=== PATIENT | male | born 1950 | race Caucasian/White ===

== ENCOUNTER 2018-02-18 13:14 | Inpatient (IN) ==
[2018-02-18 17:11] LABS: Basophils % 0.2 %; Eosinophils # 0.6 K/mcL (0.0-0.6); Eosinophils % 4.7 %; Hematocrit 31.5 % (37.5-50.1); Hemoglobin 10.1 g/dL (12.9-16.9); Immature Granulocytes % 0.5 % (0-4); Lymphocytes # 2.6 K/mcL (0.6-4.6); Lymphocytes % 21.3 %; Mean Corpuscular HGB Conc 32.1 g/dL (31.6-35.5); Mean Corpuscular Volume 71.8 fL (83.0-100.0); Mean Platelet Volume 10.4 fL (9.4-12.4); Monocytes # 0.7 K/mcL (0.0-1.3); Monocytes % 5.3 %; Neutrophils # 8.4 K/mcL (1.6-8.9); Nucleated Red Blood Cells 0.2 /100 WBC (0); Platelet Count 374 K/mcL (140-400); Red Blood Count 4.39 M/mcL (4.19-5.50); Red Cell Distribution Width 21.4 % (11.5-14.5)
[2018-02-18 17:26] LABS: Alanine Aminotransferase 14 Units/L (7-52); Albumin 3.7 g/dL (3.5-5.7); Albumin/Globulin Ratio 1.1 (1.1-2.2); Alkaline Phosphatase 77 Units/L (34-104); Aspartate Amino Transferase 19 Units/L (13-39); BUN/Creatinine Ratio 17 (6-26); Bilirubin,Total 0.8 mg/dL (0.3-1.0); Blood Urea Nitrogen 17 mg/dL (8-23); Calcium 8.9 mg/dL (8.6-10.3); Carbon Dioxide 23 mEq/L (23-29); Chloride 89 mEq/L (98-107); Globulin 3.3 g/dL (2.4-3.5); Glucose 84 mg/dL (70-105); Osmolality,Calculated 257 (280-300); Potassium 3.6 mEq/L (3.5-5.1); Sodium 123 mEq/L (136-145); eGFR For African Americans > 60 (> 60); eGFR For Non-African Americans > 60 (> 60)
[2018-02-18] MEDS ORDERED: Acetaminophen 325 MG TABLET PO PRN (17:26)
[2018-02-18] MEDS ORDERED: *HR* HYDROcodone/Acet 5/325 mg TABLET PO PRN (17:26)
[2018-02-18] MEDS ORDERED: Naloxone 0.4 MG/ML INJ IVP PRN (17:26)
[2018-02-18] MEDS ORDERED: *HR* OxyCODONE Immed Rel 5 MG TABLET PO PRN (17:26)
[2018-02-18] MEDS ORDERED: *HR* Heparin 5,000 UNIT/ML VIAL IVP ONE (17:51)
[2018-02-18] MEDS ORDERED: *HR* Heparin 5,000 UNIT/ML VIAL IVP PRN ×2 (17:51)
[2018-02-18] MEDS ORDERED: Heparin 25,000 UNIT/500 ML D5W 25,000 UNIT/500 ML BAG IVC SCH (18:00)
[2018-02-18] MEDS ORDERED: CLOBETASOL PROPIONATE 15 GM TUBE TP PRN (18:06)
[2018-02-18] MEDS ORDERED: *HR* LORazepam 2 MG/ML VIAL IVP PRN ×3 (18:12)
[2018-02-18 18:17] LABS: Prothrombin Time 11.4 Seconds (9.4-12.1)
[2018-02-18 18:20] LABS: Activated Partial Thrombo Time 28.4 Seconds (26.0-36.0)
[2018-02-18] MEDS: Vitamin B Complex/Vit C/Vit E 1 EACH TABLET PO SCH (18:36)
[2018-02-18] MEDS: Thiamine (B-1) 100 MG TABLET PO SCH (18:36)
[2018-02-18] MEDS: Folic Acid 1 MG TABLET PO SCH (18:36)
--- NOTE | 2018-02-18 18:40 | Internal Med History&Physical ---
Date of Encounter: 02/18/18 Time of Encounter: 17:00 Internal Medicine - H&P: HPI Chief complaint: Bilateral leg weakness Admitted From: Hospital to Hospital Transfer Plans for Post Hospital Care: Home History of present illness: Mr. Munguia is a 67 year old male w/PMH of previous [place] in 2004 or 2005 without stent placement, HTN, HLD, COPD, CHF, sciatica, atrial fibrillation, and GERD presents from [facility] ED with chief complaint of bilateral leg weakness for the past 2-3 days. Also reports SOB and uses 2.5L O2 @ home. Patient states he started having right leg pain 3 days ago and was given a shot of prednisone in his right hip. Patient states he is allergic to prednisone and began feeling poorly. States legs became weaker progressively over the past 3 days to the part where he is unable to stand. Reports falling Tuesday and but denies hitting head. Reports hx of chronic Afib and was previously on Xarelto but stopped d/t rectal bleeding. Pt. states his bilateral legs are painful and cramping. Pt. also reports drinking beer daily. Pt. denies recent illness, fever , chills, nausea, vomiting, headache, changes in vision, unusual bleeding, abdominal pain, diarrhea, constipation, dizziness, lightheadedness, numbness, tingling, pre-syncope, or syncope. Past Med Surg Social Fam HX - Past Medical History Source: patient, old records reviewed Medical history: atrial fibrillation, CHF, COPD, GERD, hepatitis, hyperlipidemia , hypertension Psychiatric history: no psych history - Past Surgical History Surgical History: splenectomy - Social History Smoking Status: Never smoker Smokeless Tobacco Status: No Alcohol use: recent Drug use: none Current living situation: Home Activity Level: Independent ambulation (Prior to this admission) Recent Out of Country Travel Within the Last 8 Weeks: No Exposure or Possible Exposure to Illness During Travel: No - Family History Father Race: Family Member Ethnicity: Non- Living Status: Cause of : CAD Hx Family Cardiac Disorders: Yes (CAD, HTN) Hx Family Respiratory Disorders: Yes (Emphysema) Mother Race: Family Member Ethnicity: Non- Living Status: Age at : 86 Cause of : Metastatic cancer Hx Family Cancer: Yes (Metastatic) Internal Medicine - H&P: Meds Aspirin Enteric Coated [Aspirin EC] 81 mg PO DAILY 04/06/17 [History] Calcium Carbonate [Calcium] 500 mg PO DAILY 04/06/17 [History] Clobetasol Propionate 0.05% [Temovate] 1 appl TP BID PRN 04/06/17 [History] Furosemide [Lasix] 20 mg PO DAILY 04/06/17 [History] Gabapentin [Neurontin] 600 mg PO TID 04/06/17 [History] Metoprolol [Lopressor] 100 mg PO BID 04/06/17 [History] Omeprazole [PriLOSEC] 40 mg PO DAILY 04/06/17 [History] Oxygen 2 l .ROUTE AD 04/06/17 [History] Polyethylene Glycol 3350 [MiraLAX] 17 gm PO DAILY PRN 04/06/17 [History] Potassium 99 mg PO DAILY 04/06/17 [History] Terazosin [Hytrin] 5 mg PO HS 04/06/17 [History] Tizanidine HCl 4 mg PO TID PRN 04/06/17 [History] traZODone [TraZODone] 50 mg PO HS 04/06/17 [History] Meloxicam [Mobic] 7.5 mg PO BID PRN 02/18/18 [History] Naproxen [Naprosyn] 500 mg PO BID 02/18/18 [History] 3 Allergy/AdvReac Type Severity Reaction Status Date / Time Penicillins Allergy Swelling Verified 04/06/17 10:19 of Lip/Tongue/Throat prednisone AdvReac See Verified 02/18/18 18:48 Comments All Systems PM: A 10-system review of systems was performed and is negative for pertinent findings except as documented above in the HPI. - Constitutional Constitutional: as per HPI, weakness (Bilateral LEs), no chills, no fever(s), no night sweats - EENT Eyes: no change in vision, no discharge, no pain, no photophobia Ears: no ear discharge, no ear pain, no tinnitus Nose, mouth and throat: no dysphagia, no nasal discharge, no neck pain, no sore throat - Breasts Breasts: as per HPI - Cardiovascular Cardiovascular ROS IM: as per HPI, dyspnea, dyspnea on exertion, edema (LEs), irregular heart rhythm, no chest pain, no diaphoresis, no lightheadedness, no palpitations, no syncope - Respiratory Respiratory: as per HPI, dyspnea, dyspnea on exertion, no cough, no wheezing, no excessive phlegm production - Gastrointestinal Gastrointestinal: no abdominal pain, no diarrhea, no hematemesis, no hematochezia, no melena, no nausea, no vomiting - Genitourinary Genitourinary ROS male: as per HPI - Musculoskeletal Musculoskeletal ROS IM: as per HPI, back pain, muscle cramps (Bilateral LEs), muscle weakness (Bilateral LEs), no numbness, no tingling - Integumentary Integumentary IM: as per HPI, erythema (Bilateral feet), no rash, no unusual bruising - Neurological Neurological ROS: as per HPI, weakness (Bilateral LEs to the point where he cannot stand), no confusion, no convulsions, no focal weakness, no numbness, no tingling, no tremor(s) - Psychiatric Psychiatric: as per HPI - Endocrine Endocrine IM: as per HPI - Hematologic/Lymphatic Hematologic/Lymphatic: no easy bruising - Allergic/Immunologic Allergic/Immunologic: as per HPI - Constitutional Vitals: Temp Pulse Resp BP Pulse Ox 98.3 F 91 16 147/61 98 02/18/18 15:22 02/18/18 15:22 02/18/18 15:22 02/18/18 15:22 02/18/18 15:22 General appearance: Present: cooperative, mild distress (Leg pain), A&O X 3, pleasant, obese, answers questions appropriately - Head Head exam: Present: atraumatic, normocephalic - Eye Eye exam: Present: PERRL, conjuntiva pink, sclera anicteric Pupils: Present: PERRL - ENT ENT exam: Present: normal exam - Neck Neck exam general surgery: Present: normal inspection, supple, trachea midline. Absent: lymphadenopathy - Respiratory Respiratory exam: Present: CTAB. Absent: accessory muscle use, rales, rhonchi, wheezes - Cardiovascular Cardiovascular exam: Present: irregular rhythm - GI/Abdominal GI/Abdominal exam: Present: normal bowel sounds, soft, no peritoneal signs. Absent: distended, tenderness - Rectal Rectal exam: Present: deferred - Additional comments: exam deferred. - Extremities Exam Extremities exam: Present: pedal edema, warm, radial pulses palpable and symmetrical. Absent: calf tenderness, cyanotic - Back Exam Back exam: Present: normal inspection - Neurological Exam Neurological exam: Present: alert, CN II-XII intact, oriented X3, no focal deficits. Absent: pronater drift, facial droop, speech deficit - Psychiatric Psychiatric exam: Present: anxious - Skin Skin exam: Present: dry, erythema (Bilateral feet), intact Internal Med - H&P Results - Labs CBC & Chem 7: 02/18/18 16:27 02/18/18 16:28 Labs: Short CBC 02/18/18 Range/Units 16:27 WBC 12.4 H (4.3-11.1) K/mcL Hgb 10.1 L (12.9-16.9) g/dL Hct 31.5 L (37.5-50.1) % Plt Count 374 (140-400) K/mcL Neutrophils # 8.4 (1.6-8.9) K/mcL BMP 02/18/18 16:28 Sodium 123 L Potassium 3.6 Chloride 89 L Carbon Dioxide 23 BUN 17 Creatinine 1.02 Glucose 84 Calcium 8.9 Liver Function 02/18/18 Range/Units 16:28 Total Bilirubin 0.8 (0.3-1.0) mg/dL AST 19 (13-39) Units/L ALT 14 (7-52) Units/L Alkaline Phosphatase 77 (34-104) Units/L Albumin 3.7 (3.5-5.7) g/dL - EKG Data Prior EKG available for review: no EKG comments: 02/18/18 18:59 EKG dated 02/18/18 shows atrial fibrillation with rapid ventricular response and minimal ST depression. - Assessment and plan (1) Bilateral leg weakness Current Visit: Yes Status: Acute Assessment and plan: Acute bilateral leg weakness that pt. states began three days ago and has worsened to point where he cannot place weight on LEs. States he was diagnosed w /sciatica recently. Received prednisone injection in hip recently which made him very sick d/t allergy to prednisone. Cain placed at [facility] and will continue. Bed rest w/bed cruz. Falls/safety precautions and up with assist only when able to ambulate. PT/OT consults ordered to assess for rehabilitation needs. Consider adding Orthopedic consult and lumbar spine XR. Pt. discussed w/ Dr. Da Silva who agrees w/plan of care. Pt. is high risk for further morbidity and complications d/t current inability to ambulate, current Afib w/RVR w/o anticoagulation requiring heparin drip w/titration and possible cardizem drip, current alcohol abuse and risk for withdrawal, current CHF exacerbation, hx, and risk factors. Inpatient. (2) Atrial fibrillation with RVR Current Visit: Yes Status: Acute Assessment and plan: Acute Afib w/RVR. Pt. has hx of atrial fibrillation and is only taking a low- dose aspirin daily. States he was on Xarelto for <30 days d/t rectal bleeding approx. 2 years ago. Reports previous [place] 4-5 years ago w/o stent placement. Low- dose heparin drip started. 10 mg Cardizem IVP ordered. Will start Cardizem drip if IVP ineffective. Cardiology consult ordered and discussed w/Dr. Trimble and I appreciate the consult and recommendations as always. Continuous cardiac monitoring. Echocardiogram. (3) CHF exacerbation Current Visit: Yes Status: Acute Assessment and plan: Acute exacerbation of CHF. BNP 140 on admission. Pt. reports SOB. Echocardiogram. Continuous cardiac telemetry. 1.5L daily fluid restriction. Monitor I&O and daily weight. Continue pts. PO lasix. Supplemental O2 w/ titration and SpO2 monitoring. Qualifiers: Heart failure type: diastolic Qualified Code(s): I50.33 - Acute on chronic diastolic (congestive) heart failure (4) Hyponatremia Current Visit: Yes Status: Acute Assessment and plan: Acute on chronic hyponatremia, possibly due to beer potomania. Pt. reports drinking 2 beers daily and reports last drinks this a.m. Monitor f/u labs. Nephrology consult ordered and discussed w/Dr. Youngblood w/recommendations for B vitamin supplementation, albumin level, urine sodium, and PO supplementation of sodium 2 gm daily and I appreciate the consult and recommendations as always. Continuous cardiac telemetry. Sodium level at midnight. Communication order to monitor labs to ensure sodium does not increase >7 mEq daily. Nutrition consult ordered for PO supplementation of Ensure. (5) Sciatica Current Visit: Yes Status: Acute Assessment and plan: Acute sciatica dx that pt. reports as recent. States he received injection of prednisone into hip recently and became ill d/t allergy to prednisone. Reports increasing bilateral leg weakness over the past 2-3 days to the point where he cannot place weight on LEs. Consider Orthopedic consult and lumbar spine XR d/t chronic pain. Stair-step pain medications for pain mgmt. Qualifiers: Laterality: bilateral Qualified Code(s): M54.31 - Sciatica, right side; M54.32 - Sciatica, left side (6) Alcohol abuse Current Visit: Yes Status: Chronic Assessment and plan: Hx of chronic alcohol abuse. Pt. reports drinking 2 beers daily with last drinks this a.m. Current blood alcohol 38 on admission. CIWA scale and alcohol withdrawal assessment ordered. Pt. to be monitored closely. (7) Anemia Current Visit: Yes Status: Chronic Assessment and plan: Hx of chronic anemia. Current Hgb 10.1 and Hct 31.5, up from 8.5 and 27.9 on 01/18. Folic acid, Thiamine (B1), and Vitamin B complex ordered for current anemia and d/t alcohol use daily. Monitor f/u labs. Qualifiers: Anemia type: other cause Other causes of anemia: other cause, not classified Qualified Code(s): D64.89 - Other specified anemias (8) COPD (chronic obstructive pulmonary disease) Current Visit: Yes Status: Chronic Assessment and plan: Hx of chronic COPD. Stable. Supplemental O2 w/titration and SpO2 monitoring. DuoNebs Q6HR PRN. Qualifiers: COPD type: unspecified COPD Qualified Code(s): J44.9 - Chronic obstructive pulmonary disease, unspecified (9) Pressure ulcer of sacrum Current Visit: Yes Status: Chronic Assessment and plan: Hx of chronic pressure ulcer of the sacrum. Air mattress ordered. Wound Care consult and daily wound care ordered. Qualifiers: Pressure injury stage: unspecified pressure injury stage Qualified Code(s) : L89.159 - Pressure ulcer of sacral region, unspecified stage (10) GERD (gastroesophageal reflux disease) Current Visit: Yes Status: Chronic Assessment and plan: Hx of chronic GERD. Continue pts. PO Prilosec. Qualifiers: Esophagitis presence: esophagitis presence not specified Qualified Code(s) : K21.9 - Gastro-esophageal reflux disease without esophagitis (11) HTN (hypertension) Current Visit: Yes Status: Chronic Assessment and plan: Hx of chronic HTN. Monitor pt. and VS. Continue Hytrin, Lopressor. Qualifiers: Hypertension type: essential hypertension Qualified Code(s): I10 - Essential (primary) hypertension (12) HLD (hyperlipidemia) Current Visit: Yes Status: Chronic Assessment and plan: Hx of chronic HLD. Lipid panel in a.m. Pt. does not currently take statin. Consider adding Lipitor to home medications based on lipid panel results. Qualifiers: Hyperlipidemia type: pure hypercholesterolemia Qualified Code(s): E78.00 - Pure hypercholesterolemia, unspecified; E78.0 - Pure hypercholesterolemia (13) DVT prophylaxis Current Visit: Yes Status: Acute Assessment and plan: Patient placed on heparin drip for current Afib w/RVR w/o anticoagulation. Monitor pt. for signs of bleeding d/t hx of GI bleeding Xarelto. - Time Spent With Patient Total time spent is greater than 50% in coordination of care (as documented) at patient's floor/unit and/or counseling patient: Greater than 35 minutes
[2018-02-18] MEDS ORDERED: Ipratropium/Albuterol Neb 3 ML IH PRN (19:17)
[2018-02-18 20:03] LABS: Amylase 25 Units/L (29-103); Lipase 27 Units/L (11-82)
[2018-02-18] MEDS: Gabapentin 300 MG CAPSULE PO SCH (20:44)
[2018-02-18] MEDS: Metoprolol 100 MG TABLET PO SCH (20:44)
[2018-02-18] MEDS: traZODone 50 MG TABLET PO SCH (20:45)
[2018-02-19] MEDS: tiZANidine 4 MG TABLET PO PRN (00:21)
[2018-02-19 07:25] LABS: Basophils # 0.1 K/mcL (0.0-0.2); Basophils % 0.6 %; Eosinophils # 0.4 K/mcL (0.0-0.6); Eosinophils % 5.1 %; Hematocrit 31.5 % (37.5-50.1); Hemoglobin 10.1 g/dL (12.9-16.9); Immature Granulocytes % 0.2 % (0-4); Lymphocytes # 2.1 K/mcL (0.6-4.6); Lymphocytes % 24.7 %; Mean Corpuscular HGB Conc 32.1 g/dL (31.6-35.5); Mean Corpuscular Hemoglobin 23.4 pg (28.0-33.3); Mean Corpuscular Volume 72.9 fL (83.0-100.0); Monocytes # 0.5 K/mcL (0.0-1.3); Monocytes % 6.1 %; Neutrophils # 5.4 K/mcL (1.6-8.9); Nucleated Red Blood Cells 0.4 /100 WBC (0); Platelet Count 370 K/mcL (140-400); Red Blood Count 4.32 M/mcL (4.19-5.50); Red Cell Distribution Width 21.3 % (11.5-14.5); Segmented Neutrophils % 63.3 %
[2018-02-19 07:35] LABS: INR 1.1; Prothrombin Time 12.6 Seconds (9.4-12.1)
[2018-02-19 07:45] LABS: Alanine Aminotransferase 11 Units/L (7-52); Albumin 3.5 g/dL (3.5-5.7); Albumin/Globulin Ratio 1.2 (1.1-2.2); Alkaline Phosphatase 69 Units/L (34-104); Aspartate Amino Transferase 19 Units/L (13-39); BUN/Creatinine Ratio 16 (6-26); Bilirubin,Total 1.4 mg/dL (0.3-1.0); Blood Urea Nitrogen 15 mg/dL (8-23); Calcium 8.9 mg/dL (8.6-10.3); Carbon Dioxide 26 mEq/L (23-29); Chloride 93 mEq/L (98-107); Cholesterol 137 mg/dL (< 200); Glucose 101 mg/dL (70-105); HDL Cholesterol 46 mg/dL (40-59); LDL Cholesterol,Calculated 79 mg/dL (0-99); Magnesium 1.6 mg/dL (1.6-2.6); Osmolality,Calculated 261 (280-300); Potassium 4.3 mEq/L (3.5-5.1); Sodium 125 mEq/L (136-145); Total Protein 6.5 g/dL (6.4-8.9); Triglycerides 60 mg/dL (< 150); eGFR For African Americans > 60 (> 60); eGFR For Non-African Americans > 60 (> 60)
[2018-02-19 07:55] LABS: Activated Partial Thrombo Time 140.5 Seconds (26.0-36.0)
[2018-02-19 07:56] LABS: Heparin anti-factor XA UFH 0.84 IU/mL (0.30-0.70)
[2018-02-19] MEDS: Thiamine (B-1) 100 MG TABLET PO SCH (08:27)
[2018-02-19] MEDS: (Potassium [Potassium] 99 MG) PO SCH (08:27)
[2018-02-19] MEDS: Gabapentin 300 MG CAPSULE PO SCH ×3 (08:27→19:49)
[2018-02-19] MEDS: Folic Acid 1 MG TABLET PO SCH (08:27)
[2018-02-19] MEDS: Furosemide 20 MG TABLET PO SCH (08:27)
[2018-02-19] MEDS: Metoprolol 100 MG TABLET PO SCH ×2 (08:27→19:49)
[2018-02-19] MEDS: Vitamin B Complex/Vit C/Vit E 1 EACH TABLET PO SCH (08:27)
[2018-02-19] MEDS: Aspirin Enteric Coated 81 MG Tablet PO SCH (08:27)
[2018-02-19 11:45] LABS: Estimated Average Glucose 128 mg/dl; Hemoglobin A1C 6.1 %
--- NOTE | 2018-02-19 11:50 | Nephrology Consult Note ---
Date of Encounter: 02/19/18 Time of Encounter: 12:00 Assessment and Plan (1) Hyponatremia Status: Resolved Hyponatremia in the setting of etOH use and diuretics Continue salt tabs, sodium already improving from 123 to 125 Will check TSH, cotrisol and uric acid levels Will check serum and urine osmolality Also need nutritional supplements (2) Alcohol abuse Status: Acute Per primary team History of Present Illness - Reason for Consult Consult date: 02/19/18 hyponatremia Requesting physician: Cuauhtemoc Henriquez - History of Present Illness 67 y o male with PMH of HTN, CAD s/p RI, COPD, CHF and Afib admitted as a transfer from [facility] with several says of LE mary. Renal consulted for sodium of 123. Previous labs in 01/2018 showed sodium at 126 then. He has ranged from 120-130s since 2016. He reportedly drinks beer regularly and had EtOH level elevated at 38 on admission. Pt reports running out of diuretics after doubling up as recommended by pcp. He resumed diuretics with great diuresis, losing tremendous weight in a shot period of time. Past Med Surg Social Fam HX - Past Medical History Medical history: atrial fibrillation, CHF, COPD, GERD, hepatitis, hyperlipidemia , hypertension Psychiatric history: no psych history - Past Surgical History Surgical History: splenectomy - Social History Smoking Status: Never smoker Smokeless Tobacco Status: No Alcohol use: recent Drug use: none - Family History Father Race: Family Member Ethnicity: Non- Living Status: Cause of : CAD Hx Family Cardiac Disorders: Yes (CAD, HTN) Hx Family Respiratory Disorders: Yes (Emphysema) Mother Race: Family Member Ethnicity: Non- Living Status: Age at : 86 Cause of : Metastatic cancer Hx Family Cancer: Yes (Metastatic) Medications and Allergies Aspirin Enteric Coated [Aspirin EC] 81 mg PO DAILY 04/06/17 [History] Calcium Carbonate [Calcium] 500 mg PO DAILY 04/06/17 [History] Clobetasol Propionate 0.05% [Temovate] 1 appl TP BID PRN 04/06/17 [History] Furosemide [Lasix] 20 mg PO DAILY 04/06/17 [History] Gabapentin [Neurontin] 600 mg PO TID 04/06/17 [History] Omeprazole [PriLOSEC] 40 mg PO DAILY 04/06/17 [History] Oxygen 2 l .ROUTE AD 04/06/17 [History] Polyethylene Glycol 3350 [MiraLAX] 17 gm PO DAILY PRN 04/06/17 [History] Potassium 99 mg PO DAILY 04/06/17 [History] Terazosin [Hytrin] 5 mg PO HS 04/06/17 [History] Tizanidine HCl 4 mg PO TID PRN 04/06/17 [History] traZODone [TraZODone] 50 mg PO HS 04/06/17 [History] Acetaminophen [Tylenol] 650 mg PO Q6HR PRN #15 tablet 02/23/18 [Rx] Diltiazem CD (24hr) [Cardizem CD] 120 mg PO DAILY #30 cap.er.24h 02/23/18 [Rx] Ferrous Sulfate 325 mg PO DAILY@0800 #30 tablet 02/23/18 [Rx] Folic Acid 1 mg PO DAILY #30 tablet 02/23/18 [Rx] Lactulose 10 gm PO BID PRN #30 udc 02/23/18 [Rx] Sodium Chloride [Sodium Chloride Tab] 1 gm PO BID #60 tablet 02/23/18 [Rx] Thiamine (B-1) [Vitamin B-1] 100 mg PO DAILY #30 tablet 02/23/18 [Rx] Vitamin B Complex/Vit C/Vit E [Stresstab] 1 each PO DAILY #30 tablet 02/23/18 [ Rx] 3 Allergy/AdvReac Type Severity Reaction Status Date / Time Penicillins Allergy Swelling Verified 04/06/17 10:19 of Lip/Tongue/Throat prednisone AdvReac See Verified 02/18/18 18:48 Comments Review of Systems All Systems: reviewed and no additional remarkable complaints except as stated ( 10 systems reviewed and noted in HPI) Exam - Vital Signs Vital signs: Initial Vital Signs Temp Pulse Resp BP Pulse Ox 98.3 F 91 16 147/61 98 02/18/18 15:22 02/18/18 15:22 02/18/18 15:22 02/18/18 15:22 02/18/18 15:22 Vital Signs - Last 8 Hours Temp Pulse Resp BP Pulse Ox 02/19/18 11:31 97.9 F 69 16 118/97 98 02/19/18 06:54 97.7 F 69 16 131/104 97 02/19/18 05:16 81 17 111/87 98 Intake and Output 02/18/18 02/19/18 02/19/18 23:59 07:59 15:59 Intake Total 156 / 156 379 / 379 Output Total 0 / 0 1250 / 1250 Balance 0 / 0 -1094 / -1094 379 / 379 Intake: IV Fluids 156 / 156 Heparin 25,000 UNIT/500 ML D5W 156 / 156 25,000 unit In 500 ml @ 9.775 UNIT/KG/HR 20 mls/hr IVC .Q24H [facility] Rx#:[id number] Oral 360 / 360 Output: Catheter 0 / 0 1250 / 1250 Other: Meal Breakfast Percent of Meal Consumed 100% Weight 102.6 kg Patient Weight 02/19/18 23:59 Weight 102.6 kg Results - Lab Results 02/23/18 04:02 02/23/18 04:02 Most recent lab results Calcium 8.9 mg/dL (8.6-10.3) 02/19/18 07:09 Magnesium 1.6 mg/dL (1.6-2.6) 02/19/18 07:09 Urine Sodium 14.0 mEq/L 02/18/18 20:45 Consult Discharge Plan - Plan Referrals: Cedrick Adam DO [Primary Care Provider] - 02/28/18 3:30 pm Prescriptions: Acetaminophen [Tylenol] 650 mg PO Q6HR PRN #15 tablet PRN Reason: Mild Pain/Fever Diltiazem CD (24hr) [Cardizem CD] 120 mg PO DAILY #30 cap.er.24h Ferrous Sulfate 325 mg PO DAILY@0800 #30 tablet Folic Acid 1 mg PO DAILY #30 tablet Lactulose 10 gm PO BID PRN #30 udc PRN Reason: Constipation Sodium Chloride [Sodium Chloride Tab] 1 gm PO BID #60 tablet Thiamine (B-1) [Vitamin B-1] 100 mg PO DAILY #30 tablet Vitamin B Complex/Vit C/Vit E [Stresstab] 1 each PO DAILY #30 tablet
[2018-02-19 12:08] LABS: Uric Acid 8.9 mg/dL (2.3-7.6)
--- NOTE | 2018-02-19 13:50 | Cardiology Consult Note ---
<RubénAnna Bill - Last Filed: 02/19/18 13:45> Date of Encounter: 02/19/18 Time of Encounter: 09:45 Assessment and Plan (1) Atrial fibrillation with RVR Current Visit: Yes Status: Acute Per cardiology: -Known history of a.fib. -ON BB. -Average HR 74, however has had intermittent a.fib RVR and was given IV cardizem boluses. -[id number] score 4 (age, HTN, CHF, DM). Not on oral anticoagulation due to GI bleed on xarelto. On asa. Educated and aware of increased risk of CVA/embolic event while not anticoagulated, states understanding. -TTE with LVEF preserved, no segmental wall motion abnormalities noted. -Stress 2016 negative for ischemia or infarct. -Will add cardizem 30mg Q8 hours. -Consider repeat outpatient stress. -Consider outpatient sleep study. (2) Anemia Current Visit: Yes Status: Chronic Per cardiology: -Hemoglobin 10.1 -Management per primary service. Qualifiers: Anemia type: other cause Other causes of anemia: other cause, not classified Qualified Code(s): D64.89 - Other specified anemias Discussion w patient/family: The assessment and plan as outlined above was discussed with the patient who expressed understanding and agreement. All questions were answered. Thank you for involving us in the care of your patient. Please call with any questions. Discussed and reviewed with . History of Present Illness Consult date: 02/18/18 Requesting physician: Cuauhtemoc Henriquez Consult reason: a.fib rvr Chief complaint: leg pain, weakness History of present illness: Mr. Munguia is a 67 year old male with a relevant past medical history of a.fib, GI bleed, ETOH abuse, chronic pancreatitis, GERD, diastolic CHF who presented to [facility] with complaints of leg weakness and pain. Patient denies chest pain. Patient reports occasional palpitations/fluttering, states about baseline. Denies increased shortness of breath. Denies current bleeding or blood loss. Past Med Surg Social Fam HX - Past Medical History Attestation: Yes The following information was validated with the patient. Source: patient, old records reviewed Medical history: atrial fibrillation, CHF, COPD, GERD, hepatitis, hyperlipidemia , hypertension Psychiatric history: no psych history - Past Surgical History Surgical History: splenectomy - Social History Smoking Status: Never smoker Smokeless Tobacco Status: No Alcohol use: recent Drug use: none - Family History Father Race: Family Member Ethnicity: Non- Living Status: Cause of : CAD Hx Family Cardiac Disorders: Yes (CAD, HTN) Hx Family Respiratory Disorders: Yes (Emphysema) Mother Race: Family Member Ethnicity: Non- Living Status: Age at : 85 Cause of : Metastatic cancer Hx Family Cancer: Yes (Metastatic) Medications and Allergies Aspirin Enteric Coated [Aspirin EC] 81 mg PO DAILY 04/06/17 [History] Calcium Carbonate [Calcium] 500 mg PO DAILY 04/06/17 [History] Clobetasol Propionate 0.05% [Temovate] 1 appl TP BID PRN 04/06/17 [History] Furosemide [Lasix] 20 mg PO DAILY 04/06/17 [History] Gabapentin [Neurontin] 600 mg PO TID 04/06/17 [History] Metoprolol [Lopressor] 100 mg PO BID 04/06/17 [History] Omeprazole [PriLOSEC] 40 mg PO DAILY 04/06/17 [History] Oxygen 2 l .ROUTE AD 04/06/17 [History] Polyethylene Glycol 3350 [MiraLAX] 17 gm PO DAILY PRN 04/06/17 [History] Potassium 99 mg PO DAILY 04/06/17 [History] Terazosin [Hytrin] 5 mg PO HS 04/06/17 [History] Tizanidine HCl 4 mg PO TID PRN 04/06/17 [History] traZODone [TraZODone] 50 mg PO HS 04/06/17 [History] Meloxicam [Mobic] 7.5 mg PO BID PRN 02/18/18 [History] Naproxen [Naprosyn] 500 mg PO BID 02/18/18 [History] 3 Allergy/AdvReac Type Severity Reaction Status Date / Time Penicillins Allergy Swelling Verified 04/06/17 10:19 of Lip/Tongue/Throat prednisone AdvReac See Verified 02/18/18 18:48 Comments All Systems Review: The remainder of the systems were reviewed and are negative - Cardiovascular Cardiovascular: as per HPI - Musculoskeletal Musculoskeletal: other Physical Examination Vital Signs, Last 4 Hours Temp Pulse Resp BP Pulse Ox 02/19/18 11:31 97.9 F 69 16 118/97 98 General: Conversant, No Apparent Distress HEENT: Atraumatic, Normocephaly, Mucus Membranes Moist Neck: No JVD, Normal carotid pulses Cardiac: Normal S1 and S2, No Murmur, Other (Irregularly irregular ) Lungs: Normal Breath Sounds, No Wheeze, Rales, Rhonchi Neuro: Alert and responsive, No focal deficits noted Abdomen: Soft, Non-Tender Skin: No rashes noted on visualized skin Musculoskeletal: No Chest Wall Tenderness Extremities: No Clubbing, No Cyanosis, No Edema, Normal Pulses Results 02/19/18 07:09 02/19/18 07:09 Lab Results 02/18/18 02/18/18 02/18/18 16:27 16:28 16:44 WBC 12.4 H Hgb 10.1 L Hct 31.5 L Plt Count 374 INR APTT Sodium 123 L Potassium 3.6 Chloride 89 L Carbon Dioxide 23 BUN 17 Creatinine 1.02 Glucose 84 Calcium 8.9 Magnesium Total Bilirubin 0.8 AST 19 ALT 14 Alkaline Phosphatase 77 B-Natriuretic Peptide 140 H Amylase 25 L Lipase 27 Impressions Echocardiogram 02/18/18 17:51 Impressions: Technically sub-optimal due to poor echocardiographic windows. LVEF 55%. Normal LV chamber size and function. Mild concentric left ventricular hypertrophy. Indeterminate diastolic function. Normal right ventricular structure and function. Left atrium is not well visualized. No evidence of pulmonary hypertension. No significant valvular dysfunction. Findings: Study Quality * Technically sub-optimal due to poor echocardiographic windows. ECG Findings * Atrial fibrillation. Left Ventricle * LVEF 55%. Not all LV segments were well visualized, but overall LVEF appeared normal. * Normal LV chamber size and function. * Mild concentric left ventricular hypertrophy. * Indeterminate diastolic function. Right Ventricle * Normal right ventricular structure and function. Left Atrium * Grossly, severely dilated left atrium. Right Atrium * Grossly, moderately dilated right atrium. Aortic Valve * Aortic valve not well visualized. * Grossly, mildly calcified aortic valve leaflets. * No aortic regurgitation. * No aortic stenosis. Mitral Valve * Mild mitral annular calcification * No mitral regurgitation. * No mitral stenosis. Tricuspid Valve * Normal tricuspid valve structure and function. * Trace tricuspid regurgitation. * No evidence of pulmonary hypertension. Pulmonic Valve * Pulmonic valve not well visualized. Aorta * Normally sized aortic root. Pericardium * The pericardium appears normal. IVC * The IVC is not well evaluated. Pulmonary Artery * Pulmonary artery not well visualized. Chest X-Ray 02/18/18 17:53 IMPRESSION: No acute cardiopulmonary process. D/ / Candis Peoples MD / Candis Peoples MD Interpreting Provider: Candis Peopels MD Active Medications Acetaminophen (Tylenol) 650 mg PO Q6HR PRN PRN Reason: Mild Pain/Fever Stop: 08/20/18 17:27 Hydrocodone Bitart/Acetaminophen ([place] 5-325 Mg) 1 tab PO Q6HR PRN PRN Reason: Moderate Pain Stop: 08/20/18 17:27 Albuterol/Ipratropium (Duoneb) 3 ml IH [id number] PRN PRN Reason: Shortness Of Breath/Wheezing Stop: 08/20/18 19:18 Aspirin (Aspirin Ec) 81 mg PO DAILY [facility] Stop: 08/21/18 09:01 Last Admin: 02/19/18 08:27 Dose: 81 mg Calcium Carbonate (Tums) 500 mg PO DAILY [facility] Stop: 08/21/18 09:01 Last Admin: 02/19/18 08:27 Dose: 500 mg Clobetasol Propionate (Temovate 0.05%) 1 appl TP BID PRN PRN Reason: Rash Folic Acid (Folic Acid) 1 mg PO DAILY [facility] Stop: 08/20/18 18:16 Last Admin: 02/19/18 08:27 Dose: 1 mg Furosemide (Lasix) 20 mg PO DAILY [facility]EL Stop: 08/21/18 09:01 Last Admin: 02/19/18 08:27 Dose: 20 mg Gabapentin (Neurontin) 600 mg PO TID [facility]EL Stop: 08/20/18 21:01 Last Admin: 02/19/18 08:27 Dose: 600 mg Heparin Sodium (Porcine) (Heparin) 4,000 unit IVP Q6HR PRN PRN Reason: SEE COMMENTS Stop: 08/20/18 17:52 Heparin Sodium (Porcine) (Heparin) 2,000 unit IVP Q6H PRN PRN Reason: SEE COMMENTS Stop: 08/20/18 17:52 Heparin Sodium/Dextrose (Heparin 25,000 Unit/500 Ml D5w) 25,000 unit in 500 mls @ 20 mls/hr IVC .Q24H CHRISTEL; 9.775 UNIT/KG/HR PRN Reason: Protocol Stop: 08/20/18 18:01 Last Titration: 02/19/18 09:15 Dose: 6.84 unit/kg/hr, 14 mls/hr Lorazepam (Ativan) 1 mg IVP Q1H PRN PRN Reason: Alcohol Withdrawal Stop: 08/20/18 18:13 Lorazepam (Ativan) 2 mg IVP Q4HR PRN PRN Reason: CIWA Score of 10-21 Stop: 08/20/18 18:13 Lorazepam (Ativan) 4 mg IVP Q4HR PRN PRN Reason: CIWA Score of 22-45 Stop: 08/20/18 18:13 Meloxicam (Mobic) 7.5 mg PO BID PRN PRN Reason: Pain Stop: 08/20/18 18:07 Metoprolol Tartrate (Lopressor) 100 mg PO BID [facility] Stop: 08/20/18 21:01 Last Admin: 02/19/18 08:27 Dose: 100 mg Naloxone HCl (Narcan) 0.4 mg IVP Q2MIN PRN PRN Reason: SEE COMMENTS Stop: 08/20/18 17:27 Naproxen (Naprosyn) 500 mg PO BID [facility]EL PRN Reason: Protocol Stop: 08/20/18 21:01 Last Admin: 02/19/18 08:27 Dose: 500 mg Omeprazole (Prilosec) 40 mg PO DAILY@0730 [facility]EL PRN Reason: Protocol Stop: 08/21/18 07:31 Last Admin: 02/19/18 06:08 Dose: 40 mg Oxycodone HCl (Roxicodone) 10 mg PO Q6HR PRN PRN Reason: Severe Pain Stop: 08/20/18 17:27 Pharmacy Profile Note (Patient Taking Own Medication) 0 each PO DAILY [facility] Stop: 08/21/18 09:01 Last Admin: 02/19/18 08:27 Dose: Not Given Polyethylene Glycol (Miralax) 17 gm PO DAILY PRN PRN Reason: Constipation Stop: 08/20/18 18:07 Sodium Chloride (Sodium Chloride) 1 gm PO BID [facility] Stop: 08/20/18 21:01 Last Admin: 02/19/18 08:26 Dose: 1 gm Terazosin HCl (Hytrin) 5 mg PO HS [facility] Stop: 08/20/18 21:01 Last Admin: 02/18/18 20:44 Dose: 5 mg Thiamine HCl (Vitamin B-1) 100 mg PO DAILY [facility] Stop: 08/20/18 18:16 Last Admin: 02/19/18 08:27 Dose: 100 mg Tizanidine HCl (Zanaflex) 4 mg PO TID PRN PRN Reason: Muscle Spasm Stop: 08/20/18 18:07 Last Admin: 02/19/18 00:21 Dose: 4 mg Trazodone HCl (Trazodone) 50 mg PO HS [facility] Stop: 08/20/18 21:01 Last Admin: 02/18/18 20:45 Dose: 50 mg Vitamin B Complex/Vit C/Vit E (Stresstab) 1 each PO DAILY [facility] Stop: 08/20/18 18:16 Last Admin: 02/19/18 08:27 Dose: 1 each - Imaging and Cardiology Chest Xray: report reviewed Stress Test: report reviewed Echo: report reviewed - EKG Interpretation EKG results cardiology: personally reviewed (ECG with a.fib RVR, HR 117.), other (Telemetry reviewed with average HR previous 12 hours noted to be 74, a.fib. PVCs noted.) Consult Discharge Plan - Plan Referrals: Cedrick Adam, [Primary Care Provider] - <Francois Trimble - Last Filed: 02/19/18 22:09> Date of Encounter: 02/19/18 - Attending Attestation I have personally performed a face to face evaluation on this patient. I have reviewed and agree with the care plan. History and Exam by me shows: CC: palpitations Pt reports heart racing and skipping more frequently over last several weeks, occurs at rest, comes and goes spontaneously, can last from five minutes to five hours. Pt has long hx PAF, reports he can now tell when his heart goes in or out. He reports he is mostly compliant with his medications, but not his fluid, calories and sodium restrictions. He reports he is able to perform most activities for self care but is not getting any additional exercise PMH: REviewed ROS: Reviewed PE: pt seen and examined, agree with findings as documented IMP:PLan 1. PAF, back in A fib with RVR, better controlled with IV diltiazem, now better rate control with switch to po. 2. Hypertension: better controlled on current medications 3. ELLEN; not diagnosed, pt may benefit from home nocturnal pulse oximetry. Assessment and Plan Discussion w patient/family: The assessment and plan as outlined above was discussed with the patient and/or family members who expressed understanding and agreement. All questions were answered. Thank you for involving us in the care of your patient. Please call with any questions. History of Present Illness History of present illness: Mr. Munguia is a 67 year old male All Systems Review: The remainder of the systems were reviewed and are negative Physical Examination Vital Signs, Last 4 Hours Temp Pulse Resp BP Pulse Ox 02/19/18 20:38 98.5 F 96 18 140/62 96 02/19/18 19:59 96 Results 02/19/18 07:09 02/19/18 07:09 Lab Results 02/19/18 02/19/18 02/19/18 00:57 00:57 07:09 WBC 8.5 Hgb 10.1 L Hct 31.5 L Plt Count 370 INR APTT 92.5 H D Sodium 125 L Potassium Chloride Carbon Dioxide BUN Creatinine Glucose Calcium Magnesium Total Bilirubin AST ALT Alkaline Phosphatase 02/19/18 02/19/18 02/19/18 07:09 07:09 16:09 WBC Hgb Hct Plt Count INR 1.1 APTT 140.5 H* D 33.3 D Sodium 125 L Potassium 4.3 Chloride 93 L Carbon Dioxide 26 BUN 15 Creatinine 0.94 Glucose 101 Calcium 8.9 Magnesium 1.6 Total Bilirubin 1.4 H AST 19 ALT 11 Alkaline Phosphatase 69
[2018-02-19] MEDS ORDERED: NON-FORMULARY MEDICATION 1 EACH EACH (Oxygen [Oxygen] 2 L) SCH (14:45)
--- NOTE | 2018-02-19 14:49 | Internal Med Progress Note ---
Date of Encounter: 02/19/18 Time of Encounter: 14:43 - Assessment and plan (1) Bilateral leg weakness Current Visit: Yes Status: Acute Assessment and plan: cocnsult PT and OT L-MRI (2) Atrial fibrillation with RVR Current Visit: Yes Status: Acute Assessment and plan: continue oral cardiazem, cardiology consult appreciated, I spoke to ortizcharline reilly to stop heparin, patient is not on AC due to GI bleeding (3) Hyponatremia Current Visit: Yes Status: Acute Assessment and plan: from alcohol abuse, he drinks 2-3 bees daily, denies withdrawal (4) Alcohol abuse Current Visit: Yes Status: Chronic Assessment and plan: on CIWA (5) CHF exacerbation Current Visit: Yes Status: Acute Assessment and plan: conitnue home lasix Qualifiers: Heart failure type: diastolic Qualified Code(s): I50.33 - Acute on chronic diastolic (congestive) heart failure (6) COPD (chronic obstructive pulmonary disease) Current Visit: Yes Status: Chronic Assessment and plan: on 2.5 L NC at home Qualifiers: COPD type: unspecified COPD Qualified Code(s): J44.9 - Chronic obstructive pulmonary disease, unspecified (7) Sciatica Current Visit: Yes Status: Acute Qualifiers: Laterality: bilateral Qualified Code(s): M54.31 - Sciatica, right side; M54.32 - Sciatica, left side (8) Pressure ulcer of sacrum Current Visit: Yes Status: Chronic Qualifiers: Pressure injury stage: unspecified pressure injury stage Qualified Code(s) : L89.159 - Pressure ulcer of sacral region, unspecified stage (9) DVT prophylaxis Current Visit: Yes Status: Acute (10) GERD (gastroesophageal reflux disease) Current Visit: Yes Status: Chronic Qualifiers: Esophagitis presence: esophagitis presence not specified Qualified Code(s) : K21.9 - Gastro-esophageal reflux disease without esophagitis (11) HTN (hypertension) Current Visit: Yes Status: Chronic Qualifiers: Hypertension type: essential hypertension Qualified Code(s): I10 - Essential (primary) hypertension (12) HLD (hyperlipidemia) Current Visit: Yes Status: Chronic Qualifiers: Hyperlipidemia type: pure hypercholesterolemia Qualified Code(s): E78.00 - Pure hypercholesterolemia, unspecified; E78.0 - Pure hypercholesterolemia - Time Spent With Patient Total time spent is greater than 50% in coordination of care (as documented) at patient's floor/unit and/or counseling patient: 25 - 35 minutes - Subjective Interval history: Mr. Munguia is a 67 year old male w/PMH of previous AK in 2004 or 2005 without stent placement, HTN, HLD, COPD, CHF, sciatica, atrial fibrillation, and GERD presents from [facility] ED with chief complaint of bilateral leg weakness for the past 2-3 days. Also reports SOB and uses 2.5L O2 @ home. Patient states he started having right leg pain 3 days ago and was given a shot of prednisone in his right hip. Patient states he is allergic to prednisone and began feeling poorly. States legs became weaker progressively over the past 3 days to the part where he is unable to stand. Reports falling Tuesday and but denies hitting head. Reports hx of chronic Afib and was previously on Xarelto but stopped d/t rectal bleeding. Pt. states his bilateral legs are painful and cramping. Pt. also reports drinking beer daily. Pt. denies recent illness, fever , chills, nausea, vomiting, headache, changes in vision, unusual bleeding, abdominal pain, diarrhea, constipation, dizziness, lightheadedness, numbness, tingling, pre-syncope, or syncope. Patient was admitted for 1. atrail fib with RVR, HR is better controlled, discussed with charline Romero to stop heparin 2. b/l leg, weakness , pain and numbness, chroci back pain, will do MRI L-spine 3. Hyponatremia, from alcohol abuse, no signs for withdrawal patient is doing better, able to move legs normal muscle strength - Constitutional Vitals: Temp Pulse Resp BP Pulse Ox 97.9 F 69 16 118/97 98 02/19/18 11:31 02/19/18 11:31 02/19/18 11:31 02/19/18 11:31 02/19/18 11:31 General appearance: Present: cooperative, mild distress (Leg pain), A&O X 3, pleasant, obese, answers questions appropriately Exam: CONSTITUTIONAL: patient appears as an age appropriate male in no acute distress. EYES Clear sclerae, bilateral pupils are equal, reactive to light. EMOI. RESPIRATORY: No accessory muscle use, bilateral clear to auscultation, no wheezing, no crackles/rales. CARDIOVASCULAR: Regular heart rate, normal S1 and S2, no murmurs GASTROINTESTINAL: bowel sounds present, soft, no tenderness. MUSCULOSKELETAL: Joints in normal range of motion, no clubbing, no edema, no cyanosis. Bilateral peripheral pulses 2+. NEUROLOGIC: CN II to XII are grossly intact, no focal neurological deficit. Internal Medicine: Result - Labs CBC & Chem 7: 02/19/18 07:09 02/19/18 07:09 Labs: Short CBC 02/18/18 02/19/18 Range/Units 16:27 07:09 WBC 12.4 H 8.5 (4.3-11.1) K/mcL Hgb 10.1 L 10.1 L (12.9-16.9) g/dL Hct 31.5 L 31.5 L (37.5-50.1) % Plt Count 374 370 (140-400) K/mcL Neutrophils # 8.4 5.4 (1.6-8.9) K/mcL BMP 02/18/18 02/19/18 02/19/18 16:28 00:57 07:09 Sodium 123 L 125 L 125 L Potassium 3.6 4.3 Chloride 89 L 93 L Carbon Dioxide 23 26 BUN 17 15 Creatinine 1.02 0.94 Glucose 84 101 Calcium 8.9 8.9 Liver Function 02/18/18 02/19/18 Range/Units 16:28 07:09 Total Bilirubin 0.8 1.4 H (0.3-1.0) mg/dL AST 19 19 (13-39) Units/L ALT 14 11 (7-52) Units/L Alkaline Phosphatase 77 69 (34-104) Units/L Albumin 3.7 3.5 (3.5-5.7) g/dL - ABG Interpretation ABG results: PT/INR, D-dimer PT 12.6 Seconds (9.4-12.1) H 02/19/18 07:09 - Impressions Impressions Echocardiogram 02/18/18 17:51 Impressions: Technically sub-optimal due to poor echocardiographic windows. LVEF 55%. Normal LV chamber size and function. Mild concentric left ventricular hypertrophy. Indeterminate diastolic function. Normal right ventricular structure and function. Left atrium is not well visualized. No evidence of pulmonary hypertension. No significant valvular dysfunction. Findings: Study Quality * Technically sub-optimal due to poor echocardiographic windows. ECG Findings * Atrial fibrillation. Left Ventricle * LVEF 55%. Not all LV segments were well visualized, but overall LVEF appeared normal. * Normal LV chamber size and function. * Mild concentric left ventricular hypertrophy. * Indeterminate diastolic function. Right Ventricle * Normal right ventricular structure and function. Left Atrium * Grossly, severely dilated left atrium. Right Atrium * Grossly, moderately dilated right atrium. Aortic Valve * Aortic valve not well visualized. * Grossly, mildly calcified aortic valve leaflets. * No aortic regurgitation. * No aortic stenosis. Mitral Valve * Mild mitral annular calcification * No mitral regurgitation. * No mitral stenosis. Tricuspid Valve * Normal tricuspid valve structure and function. * Trace tricuspid regurgitation. * No evidence of pulmonary hypertension. Pulmonic Valve * Pulmonic valve not well visualized. Aorta * Normally sized aortic root. Pericardium * The pericardium appears normal. IVC * The IVC is not well evaluated. Pulmonary Artery * Pulmonary artery not well visualized. Chest X-Ray 02/18/18 17:53 IMPRESSION: No acute cardiopulmonary process. D/ / Candis Peoples MD / Candis Peoples MD Interpreting Provider: Candis Peoples MD Consult Discharge Plan - Plan Referrals: Cedrick Adam DO [Primary Care Provider] -
[2018-02-19] MEDS: traZODone 50 MG TABLET PO SCH (19:48)
[2018-02-20 05:35] LABS: Alanine Aminotransferase 10 Units/L (7-52); Albumin 3.3 g/dL (3.5-5.7); Albumin/Globulin Ratio 1.2 (1.1-2.2); Alkaline Phosphatase 60 Units/L (34-104); Aspartate Amino Transferase 26 Units/L (13-39); BUN/Creatinine Ratio 17 (6-26); Bilirubin,Direct 0.2 mg/dL (0.0-0.2); Bilirubin,Indirect 0.5 mg/dL (0.0-1.2); Bilirubin,Total 0.7 mg/dL (0.3-1.0); Blood Urea Nitrogen 22 mg/dL (8-23); Calcium 8.7 mg/dL (8.6-10.3); Carbon Dioxide 24 mEq/L (23-29); Chloride 98 mEq/L (98-107); Globulin 2.7 g/dL (2.4-3.5); Glucose 115 mg/dL (70-105); Osmolality,Calculated 274 (280-300); Potassium 5.2 mEq/L (3.5-5.1); Sodium 130 mEq/L (136-145); eGFR For African Americans > 60 (> 60); eGFR For Non-African Americans 55 (> 60)
[2018-02-20 05:42] LABS: Thyroid Stimulating Hormone 5.448 mcIU/mL (0.340-5.600)
[2018-02-20 06:11] LABS: Basophils % 0.3 %; Eosinophils # 0.6 K/mcL (0.0-0.6); Eosinophils % 7.2 %; Hematocrit 29.2 % (37.5-50.1); Hemoglobin 9.4 g/dL (12.9-16.9); Lymphocytes % 22.3 %; Mean Corpuscular HGB Conc 32.2 g/dL (31.6-35.5); Mean Corpuscular Hemoglobin 24.1 pg (28.0-33.3); Mean Corpuscular Volume 74.9 fL (83.0-100.0); Mean Platelet Volume 10.3 fL (9.4-12.4); Monocytes # 0.6 K/mcL (0.0-1.3); Monocytes % 6.6 %; Neutrophils # 5.5 K/mcL (1.6-8.9); Nucleated Red Blood Cells 0.2 /100 WBC (0); Platelet Count 302 K/mcL (140-400); Red Cell Distribution Width 21.9 % (11.5-14.5); Segmented Neutrophils % 62.6 %
[2018-02-20] MEDS: Aspirin Enteric Coated 81 MG Tablet PO SCH (08:26)
[2018-02-20] MEDS: Thiamine (B-1) 100 MG TABLET PO SCH (08:26)
[2018-02-20] MEDS: Gabapentin 300 MG CAPSULE PO SCH ×3 (08:26→20:59)
[2018-02-20] MEDS: Metoprolol 100 MG TABLET PO SCH ×2 (08:26→20:59)
[2018-02-20] MEDS: Folic Acid 1 MG TABLET PO SCH (08:26)
[2018-02-20] MEDS: (Potassium [Potassium] 99 MG) PO SCH (08:26)
[2018-02-20] MEDS: Vitamin B Complex/Vit C/Vit E 1 EACH TABLET PO SCH (08:26)
[2018-02-20] MEDS: Furosemide 20 MG TABLET PO SCH (08:26)
[2018-02-20] MEDS ORDERED: 0.9 % Sodium Chloride 500 ML ONE (10:42)
--- NOTE | 2018-02-20 13:31 | Cardiology Progress Note ---
Date of Encounter: 02/20/18 Time of Encounter: 13:29 Assessment and Plan (1) Atrial fibrillation with RVR Current Visit: Yes Status: Acute Per cardiology: -Known history of a.fib. -ON BB. -Average HR 71, no episodes of a.fib RVR noted. -[id number] score 4 (age, HTN, CHF, DM). Not on oral anticoagulation due to GI bleed on xarelto. On asa. Educated and aware of increased risk of CVA/embolic event while not anticoagulated, states understanding. -TTE with LVEF preserved, no segmental wall motion abnormalities noted. -Stress 2016 negative for ischemia or infarct. -ON BB and cardizem. -Will switch cardizem to long acting tomorrow. -Recommend outpatient sleep study. Can consider outpatient stress. -Cardiology will sign off and will follow in outpatient setting. Follow up set. (2) Anemia Current Visit: Yes Status: Chronic Per cardiology: -Hemoglobin 9.4. -Management per primary service. Qualifiers: Anemia type: other cause Other causes of anemia: other cause, not classified Qualified Code(s): D64.89 - Other specified anemias Discussion w patient/family: The assessment and plan as outlined above was discussed with the patient who expressed understanding and agreement. All questions were answered. Thank you for involving us in the care of your patient. Please call with any questions. Discussed and reviewed with . Subjective Principal diagnosis: leg pain, a.fib Interval history: Patient is better rate controlled with cardizem. Denies chest pain, palpitations , fluttering. Objective Vital Signs, Last 4 Hours Temp Pulse Resp BP Pulse Ox 02/20/18 10:56 97.5 F L 68 16 106/63 96 General: Conversant, No Apparent Distress HEENT: Atraumatic, Normocephaly, Mucus Membranes Moist Neck: No JVD, Normal carotid pulses Cardiac: Normal S1 and S2, No Murmur, Other (Irregularly irregular ) Lungs: Normal Breath Sounds, No Wheeze, Rales, Rhonchi Neuro: Alert and responsive, No focal deficits noted Abdomen: Soft, Non-Tender Skin: No rashes noted on visualized skin Musculoskeletal: No Chest Wall Tenderness Extremities: No Clubbing, No Cyanosis, No Edema, Normal Pulses Results 02/20/18 05:56 02/20/18 04:42 Lab Results Impressions Echocardiogram 02/18/18 17:51 Impressions: Technically sub-optimal due to poor echocardiographic windows. LVEF 55%. Normal LV chamber size and function. Mild concentric left ventricular hypertrophy. Indeterminate diastolic function. Normal right ventricular structure and function. Left atrium is not well visualized. No evidence of pulmonary hypertension. No significant valvular dysfunction. Findings: Study Quality * Technically sub-optimal due to poor echocardiographic windows. ECG Findings * Atrial fibrillation. Left Ventricle * LVEF 55%. Not all LV segments were well visualized, but overall LVEF appeared normal. * Normal LV chamber size and function. * Mild concentric left ventricular hypertrophy. * Indeterminate diastolic function. Right Ventricle * Normal right ventricular structure and function. Left Atrium * Grossly, severely dilated left atrium. Right Atrium * Grossly, moderately dilated right atrium. Aortic Valve * Aortic valve not well visualized. * Grossly, mildly calcified aortic valve leaflets. * No aortic regurgitation. * No aortic stenosis. Mitral Valve * Mild mitral annular calcification * No mitral regurgitation. * No mitral stenosis. Tricuspid Valve * Normal tricuspid valve structure and function. * Trace tricuspid regurgitation. * No evidence of pulmonary hypertension. Pulmonic Valve * Pulmonic valve not well visualized. Aorta * Normally sized aortic root. Pericardium * The pericardium appears normal. IVC * The IVC is not well evaluated. Pulmonary Artery * Pulmonary artery not well visualized. 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 Disc and osteophytes result in narrowing of the neural foramina throughout the lumbar spine as discussed above. There is moderate stenosis of the thecal sac at L4-5. D/ / 02/20/2018 10:40:41 Justine Bruce MD [facility] Interpreting Provider: Justine Bruce MD Active Medications Acetaminophen (Tylenol) 650 mg PO Q6HR PRN PRN Reason: Mild Pain/Fever Stop: 08/20/18 17:27 Hydrocodone Bitart/Acetaminophen (Fowler 5-325 Mg) 1 tab PO Q6HR PRN PRN Reason: Moderate Pain Stop: 08/20/18 17:27 Albuterol/Ipratropium (Duoneb) 3 ml IH [id number] PRN PRN Reason: Shortness Of Breath/Wheezing Stop: 08/20/18 19:18 Aspirin (Aspirin Ec) 81 mg PO DAILY [facility] Stop: 08/21/18 09:01 Last Admin: 02/20/18 08:26 Dose: 81 mg Calcium Carbonate (Tums) 500 mg PO DAILY [facility] Stop: 08/21/18 09:01 Last Admin: 02/20/18 08:26 Dose: 500 mg Clobetasol Propionate (Temovate 0.05%) 1 appl TP BID PRN PRN Reason: Rash Diltiazem HCl (Cardizem) 30 mg PO Q8HR [facility] Stop: 02/21/18 02:00 Last Admin: 02/20/18 08:26 Dose: 30 mg Diltiazem HCl (Cardizem Cd) 120 mg PO DAILY [facility] Stop: 08/23/18 09:01 Folic Acid (Folic Acid) 1 mg PO DAILY [facility] Stop: 08/20/18 18:16 Last Admin: 02/20/18 08:26 Dose: 1 mg Furosemide (Lasix) 20 mg PO DAILY [facility] Stop: 08/21/18 09:01 Last Admin: 02/20/18 08:26 Dose: 20 mg Gabapentin (Neurontin) 600 mg PO TID [facility] Stop: 08/20/18 21:01 Last Admin: 02/20/18 08:26 Dose: 600 mg Lorazepam (Ativan) 1 mg IVP Q1H PRN PRN Reason: Alcohol Withdrawal Stop: 08/20/18 18:13 Lorazepam (Ativan) 2 mg IVP Q4HR PRN PRN Reason: CIWA Score of 10-21 Stop: 08/20/18 18:13 Lorazepam (Ativan) 4 mg IVP Q4HR PRN PRN Reason: CIWA Score of 22-45 Stop: 08/20/18 18:13 Meloxicam (Mobic) 7.5 mg PO BID PRN PRN Reason: Pain Stop: 08/20/18 18:07 Metoprolol Tartrate (Lopressor) 100 mg PO BID [facility] Stop: 08/20/18 21:01 Last Admin: 02/20/18 08:26 Dose: 100 mg Naloxone HCl (Narcan) 0.4 mg IVP Q2MIN PRN PRN Reason: SEE COMMENTS Stop: 08/20/18 17:27 Naproxen (Naprosyn) 500 mg PO BID [facility] PRN Reason: Protocol Stop: 08/20/18 21:01 Last Admin: 02/20/18 08:26 Dose: 500 mg Omeprazole (Prilosec) 40 mg PO DAILY@0730 [facility] PRN Reason: Protocol Stop: 08/21/18 07:31 Last Admin: 02/20/18 06:07 Dose: 40 mg Oxycodone HCl (Roxicodone) 10 mg PO Q6HR PRN PRN Reason: Severe Pain Stop: 08/20/18 17:27 Pharmacy Profile Note (Patient Taking Own Medication) 0 each PO DAILY [facility] Stop: 08/21/18 09:01 Last Admin: 02/20/18 08:26 Dose: Not Given Polyethylene Glycol (Miralax) 17 gm PO DAILY PRN PRN Reason: Constipation Stop: 08/20/18 18:07 Last Admin: 02/19/18 19:48 Dose: 17 gm Sodium Chloride (Sodium Chloride) 1 gm PO BID [facility] Stop: 08/20/18 21:01 Last Admin: 02/20/18 08:26 Dose: 1 gm Terazosin HCl (Hytrin) 5 mg PO [facility] Stop: 08/20/18 21:01 Last Admin: 02/19/18 19:48 Dose: 5 mg Thiamine HCl (Vitamin B-1) 100 mg PO DAILY [facility] Stop: 08/20/18 18:16 Last Admin: 02/20/18 08:26 Dose: 100 mg Tizanidine HCl (Zanaflex) 4 mg PO TID PRN PRN Reason: Muscle Spasm Stop: 08/20/18 18:07 Last Admin: 02/19/18 00:21 Dose: 4 mg Trazodone HCl (Trazodone) 50 mg PO [facility] Stop: 08/20/18 21:01 Last Admin: 02/19/18 19:48 Dose: 50 mg Vitamin B Complex/Vit C/Vit E (Stresstab) 1 each PO DAILY [facility] Stop: 08/20/18 18:16 Last Admin: 02/20/18 08:26 Dose: 1 each Laboratory Tests 02/20/18 02/20/18 04:42 05:56 Hgb 9.4 L Potassium 5.2 H Creatinine 1.30 TSH 5.448 - Imaging and Cardiology Chest Xray: report reviewed Echo: report reviewed - EKG Interpretation EKG results cardiology: other (Telemetry reviewed with average HR previous 12 hours noted to be 71, a.fib. PVCs noted.) - VTE Documentation of Mechanical Device: Intermittent pneumatic compression device Consult Discharge Plan - Plan Referrals: Cedrick Adam DO [Primary Care Provider] -
--- NOTE | 2018-02-20 14:58 | Nephrology Progress Note ---
Date of Encounter: 02/20/18 Time of Encounter: 10:00 - Assessment and Plan (1) Elevated serum creatinine Current Visit: Yes Status: Acute Jump in Scr from .94 to 1.3; rise in potassium from 4.3 to 5.2 in 24 hours Monitoring Creat trend modest urine output, pt on low dose lasix Non-emergent can lower K slowly with kayexalate (2) Hyponatremia Current Visit: Yes Status: Acute Sodium: 123->125->130meq on po sodium History significant for alcohol abuse; currently 2-3 beers daily, does not drink hard liquor; on CIWA protocol, no signs of agitation P: Continue PO sodium, discussion regarding alcohol abuse/dependence with patient (3) Alcohol abuse Current Visit: Yes Status: Chronic Management as above (4) Bilateral leg weakness Current Visit: Yes Status: Acute MRI shows diffuse lumbar narrowing; chronic IMPRESSION: 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 Disc and osteophytes result in narrowing of the neural foramina throughout the lumbar spine as discussed above. There is moderate stenosis of the thecal sac at L4-5. no saddle anesthesia/no urinary incontinence/no headache Unlikely B12/folate component (5) Anemia Current Visit: Yes Status: Chronic Ordering iron studies; b12, folate Qualifiers: Anemia type: other cause Other causes of anemia: other cause, not classified Qualified Code(s): D64.89 - Other specified anemias Subjective Principal diagnosis: leg pain, a.fib Interval history: Pt has been taking PO sodium; since admit he has had no headaches, nausea, malaise, or confusion. No increased agitation. Objective - Vital Signs Vital signs: Vital Signs Temp Pulse Resp BP Pulse Ox 02/20/18 10:56 97.5 F L 68 16 106/63 96 02/20/18 06:55 97.9 F 64 16 104/67 100 02/20/18 04:04 98.0 F 73 18 130/66 100 02/20/18 00:41 98.0 F 75 18 137/71 97 02/19/18 20:38 98.5 F 96 18 140/62 96 02/19/18 19:59 96 02/19/18 16:39 98.2 F 72 17 115/63 96 Intake and Output 02/19/18 02/20/18 02/20/18 23:59 07:59 15:59 Intake Total 360 / 360 0 / 0 1600 / 1600 Output Total 1600 / 1600 800 / 800 0 / 0 Balance -1240 / -1240 -800 / -800 1600 / 1600 Intake: Oral 360 / 360 0 / 0 1600 / 1600 Output: Urine 1600 / 1600 800 / 800 0 / 0 Other: Meal Dinner Lunch Percent of Meal Consumed 100% 100% # Voids 0 Weight 101.7 kg Patient Weight 02/20/18 23:59 Weight 101.7 kg - General Appearance General appearance: Present: well-developed, well-nourished, appears started age Neck: Present: no JVD, no thyromegaly, no carotid bruit, supple Respiratory: Present: no kyphosis, no scoliosis Cardiology: Present: no murmurs, no rub, no gallops, no edema, irregular rhythm , normal S1, normal S2 Gastrointestinal: Present: normoactive bowel sounds, no tenderness Integumentary: Present: no rash, warm and dry Neurologic: Present: no asterixis, alert and oriented x3. Absent: aphasia, facial droop Musculoskeletal: Present: no deformities, no erythema, no cyanosis, no clubbing Psychiatric: Present: mood/affect appropriate, cooperative - Lab 02/20/18 05:56 02/20/18 04:42 Most recent lab results Calcium 8.7 mg/dL (8.6-10.3) 02/20/18 04:42 Magnesium 1.6 mg/dL (1.6-2.6) 02/19/18 07:09 Urine Sodium 14.0 mEq/L 02/18/18 20:45 - VTE Documentation of Mechanical Device: Intermittent pneumatic compression device Consult Discharge Plan - Plan Referrals: Cedrick Adam DO [Primary Care Provider] -
--- NOTE | 2018-02-20 15:44 | Electrocardiograph Report ---
[address] [place], [place] [address] Test Date: 2018-02-18 Pat Name: Oscar Munguia Department: 111 Room: 2N8 Gender: [employer] Teacher: : 1950 Requested By: [id number] Order Number: [id number] Reading MD: Phong García Measurements Intervals [place] Rate: 117 P: AK: 0 QRS: 11 QRSD: 77 T: 13 QT: 335 QTc: 404 Interpretive Statements ATRIAL FIBRILLATION WITH RAPID VENTRICULAR RESPONSE BASELINE ARTIFACT Electronically Signed On 02-20-2018 15:43:02 EDT by Phong García
--- NOTE | 2018-02-20 16:24 | Internal Med Progress Note ---
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 Disc and osteophytes result in narrowing of the neural foramina throughout the lumbar spine as discussed above. There is moderate stenosis of the thecal sac at L4-5. no saddle anesthesia/no urinary incontinence he is able to move, has good muscle strength to lower extremity pending PT and OT (2) Atrial fibrillation with RVR Current Visit: Yes Status: Acute Assessment and plan: continue oral cardiazem, cardiology consult appreciated, patient is not on AC due to GI bleeding -Will switch cardizem to long acting tomorrow. -Recommend outpatient sleep study. Can consider outpatient stress. cardiology signed off (3) Hyponatremia Current Visit: Yes Status: Acute Assessment and plan: sodium improved (4) Alcohol abuse Current Visit: Yes Status: Chronic Assessment and plan: no signs for withdrawal (5) CHF exacerbation Current Visit: Yes Status: Acute Qualifiers: Heart failure type: diastolic Qualified Code(s): I50.33 - Acute on chronic diastolic (congestive) heart failure (6) COPD (chronic obstructive pulmonary disease) Current Visit: Yes Status: Chronic Qualifiers: COPD type: unspecified COPD Qualified Code(s): J44.9 - Chronic obstructive pulmonary disease, unspecified (7) Sciatica Current Visit: Yes Status: Acute Qualifiers: Laterality: bilateral Qualified Code(s): M54.31 - Sciatica, right side; M54.32 - Sciatica, left side (8) Pressure ulcer of sacrum Current Visit: Yes Status: Chronic Qualifiers: Pressure injury stage: unspecified pressure injury stage Qualified Code(s) : L89.159 - Pressure ulcer of sacral region, unspecified stage (9) DVT prophylaxis Current Visit: Yes Status: Acute (10) GERD (gastroesophageal reflux disease) Current Visit: Yes Status: Chronic Qualifiers: Esophagitis presence: esophagitis presence not specified Qualified Code(s) : K21.9 - Gastro-esophageal reflux disease without esophagitis (11) HTN (hypertension) Current Visit: Yes Status: Chronic Qualifiers: Hypertension type: essential hypertension Qualified Code(s): I10 - Essential (primary) hypertension (12) HLD (hyperlipidemia) Current Visit: Yes Status: Chronic Qualifiers: Hyperlipidemia type: pure hypercholesterolemia Qualified Code(s): E78.00 - Pure hypercholesterolemia, unspecified; E78.0 - Pure hypercholesterolemia - Time Spent With Patient Total time spent is greater than 50% in coordination of care (as documented) at patient's floor/unit and/or counseling patient: - Subjective Interval history: Mr. Munguia is a 67 year old male w/PMH of previous [place] in 2004 or 2005 without stent placement, HTN, HLD, COPD, CHF, sciatica, atrial fibrillation, and GERD presents from [facility] ED with chief complaint of bilateral leg weakness for the past 2-3 days. Also reports SOB and uses 2.5L O2 @ home. Patient states he started having right leg pain 3 days ago and was given a shot of prednisone in his right hip. Patient states he is allergic to prednisone and began feeling poorly. States legs became weaker progressively over the past 3 days to the part where he is unable to stand. Reports falling Tuesday and but denies hitting head. Reports hx of chronic Afib and was previously on Xarelto but stopped d/t rectal bleeding. Pt. states his bilateral legs are painful and cramping. Pt. also reports drinking beer daily. Pt. denies recent illness, fever , chills, nausea, vomiting, headache, changes in vision, unusual bleeding, abdominal pain, diarrhea, constipation, dizziness, lightheadedness, numbness, tingling, pre-syncope, or syncope. Patient was admitted for 1. atrail fib with RVR, HR is better controlled, I appreciate cardiology help. continue ON BB and cardizem. -Will switch cardizem to long acting tomorrow. -Recommend outpatient sleep study. Can consider outpatient stress. cardiology signed off 2. b/l leg, weakness , pain and numbness, chroci back pain, MRI L-spine showed moderate stenosis 3. Hyponatremia, from alcohol abuse, no signs for withdrawal, sodium improved patient is doing better, able to move legs normal muscle strength, pending pT and OT discharge to SNF VS home when PT and OT are ok - Constitutional Vitals: Temp Pulse Resp BP Pulse Ox 97.9 F 61 16 100/50 99 02/20/18 15:15 02/20/18 15:15 02/20/18 15:15 02/20/18 15:15 07/09/18 15:15 General appearance: Present: cooperative, mild distress (Leg pain), A&O X 3, pleasant, obese, answers questions appropriately Exam: CONSTITUTIONAL: patient appears as an age appropriate male in no acute distress. EYES Clear sclerae, bilateral pupils are equal, reactive to light. EMOI. RESPIRATORY: No accessory muscle use, bilateral clear to auscultation, no wheezing, no crackles/rales. CARDIOVASCULAR: Regular heart rate, normal S1 and S2, no murmurs GASTROINTESTINAL: bowel sounds present, soft, no tenderness. MUSCULOSKELETAL: Joints in normal range of motion, no clubbing, no edema, no cyanosis. Bilateral peripheral pulses 2+. NEUROLOGIC: CN II to XII are grossly intact, no focal neurological deficit. Internal Medicine: Result - Labs CBC & Chem 7: 02/20/18 05:56 02/20/18 04:42 Labs: Short CBC 02/20/18 Range/Units 05:56 WBC 8.7 (4.3-11.1) K/mcL Hgb 9.4 L (12.9-16.9) g/dL Hct 29.2 L (37.5-50.1) % Plt Count 302 (140-400) K/mcL Neutrophils # 5.5 (1.6-8.9) K/mcL BMP 02/20/18 04:42 Sodium 130 L Potassium 5.2 H Chloride 98 Carbon Dioxide 24 BUN 22 Creatinine 1.30 Glucose 115 H Calcium 8.7 Liver Function 02/20/18 Range/Units 04:42 Total Bilirubin 0.7 (0.3-1.0) mg/dL Direct Bilirubin 0.2 (0.0-0.2) mg/dL AST 26 (13-39) Units/L ALT 10 (7-52) Units/L Alkaline Phosphatase 60 (34-104) Units/L Albumin 3.3 L (3.5-5.7) g/dL - ABG Interpretation ABG results: PT/INR, D-dimer PT 12.6 Seconds (9.4-12.1) H 02/19/18 07:09 - Impressions Impressions Lumbar Spine MRI 02/20/18 09:01 IMPRESSION: 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 Disc and osteophytes result in narrowing of the neural foramina throughout the lumbar spine as discussed above. There is moderate stenosis of the thecal sac at L4-5. D/ / 02/20/2018 10:40:41 Justine Bruce MD / [email or web address] Interpreting Provider: Justine Bruce MD - VTE Documentation of Mechanical Device: Intermittent pneumatic compression device Consult Discharge Plan - Plan Referrals: Cedrick Adam DO [Primary Care Provider] -
[2018-02-20] MEDS: traZODone 50 MG TABLET PO SCH (20:58)
[2018-02-21 05:11] LABS: Basophils % 0.4 %; Eosinophils # 0.6 K/mcL (0.0-0.6); Eosinophils % 6.4 %; Hematocrit 30.5 % (37.5-50.1); Immature Granulocytes % 0.4 % (0-4); Lymphocytes # 1.7 K/mcL (0.6-4.6); Lymphocytes % 16.8 %; Mean Corpuscular HGB Conc 29.5 g/dL (31.6-35.5); Mean Corpuscular Hemoglobin 23.1 pg (28.0-33.3); Mean Corpuscular Volume 78.2 fL (83.0-100.0); Mean Platelet Volume 10.3 fL (9.4-12.4); Monocytes # 0.6 K/mcL (0.0-1.3); Monocytes % 6.2 %; Neutrophils # 6.9 K/mcL (1.6-8.9); Nucleated Red Blood Cells 0.2 /100 WBC (0); Platelet Count 320 K/mcL (140-400); Red Cell Distribution Width 23.1 % (11.5-14.5); Segmented Neutrophils % 69.8 %
[2018-02-21 05:29] LABS: Anisocytosis 2+ (Not Present); Hypochromasia Present (Not Present); Platelet Estimate Normal (Normal)
[2018-02-21 05:30] LABS: Acanthocytes 1+ (Not Present); Poikilocytosis 1+ (Not Present)
[2018-02-21 05:33] LABS: Alanine Aminotransferase 10 Units/L (7-52); Albumin 3.6 g/dL (3.5-5.7); Albumin/Globulin Ratio 1.3 (1.1-2.2); Alkaline Phosphatase 64 Units/L (34-104); Aspartate Amino Transferase 16 Units/L (13-39); BUN/Creatinine Ratio 23 (6-26); Bilirubin,Total 0.5 mg/dL (0.3-1.0); Blood Urea Nitrogen 30 mg/dL (8-23); Calcium 9.1 mg/dL (8.6-10.3); Carbon Dioxide 29 mEq/L (23-29); Chloride 101 mEq/L (98-107); Globulin 2.7 g/dL (2.4-3.5); Glucose 111 mg/dL (70-105); Osmolality,Calculated 289 (280-300); Potassium 4.5 mEq/L (3.5-5.1); Sodium 136 mEq/L (136-145); Total Protein 6.3 g/dL (6.4-8.9); eGFR For African Americans > 60 (> 60); eGFR For Non-African Americans 55 (> 60)
[2018-02-21 05:34] LABS: % Iron Saturation 5 % (20-55); Iron 25 mcg/dL (65-175); Transferrin 347 mg/dL (203-362)
[2018-02-21 05:59] LABS: Folate 14.6 ng/mL (3.0-16.0)
[2018-02-21] MEDS: Gabapentin 300 MG CAPSULE PO SCH ×3 (09:32→20:23)
[2018-02-21] MEDS: Metoprolol 100 MG TABLET PO SCH ×2 (09:32→20:23)
[2018-02-21] MEDS: Vitamin B Complex/Vit C/Vit E 1 EACH TABLET PO SCH (09:32)
[2018-02-21] MEDS: Diltiazem CD (24hr) 120 MG CAPSULE PO SCH (09:32)
[2018-02-21] MEDS: Thiamine (B-1) 100 MG TABLET PO SCH (09:32)
[2018-02-21] MEDS: Aspirin Enteric Coated 81 MG Tablet PO SCH (09:32)
[2018-02-21] MEDS: Folic Acid 1 MG TABLET PO SCH (09:32)
[2018-02-21] MEDS: Furosemide 20 MG TABLET PO SCH (09:32)
[2018-02-21] MEDS: (Potassium [Potassium] 99 MG) PO SCH (09:44)
--- NOTE | 2018-02-21 12:30 | Nephrology Progress Note ---
Date of Encounter: 02/21/18 Time of Encounter: 10:30 - Assessment and Plan (1) Elevated serum creatinine Current Visit: Yes Status: Acute Scr 1.3 today as well as yesterday, potassium downtrending, today 4.5 Sodium 136, resolved UOP 900cc yesterday P: Stable from Nephrology standpoint Awaiting PT/OT evaluation for LE weakness per primary Recommend repeat BMP in 1 week prior to outpatient PCP follow-up; f/u with Nephrology outpatient in 6-8wks (2) Hyponatremia Current Visit: Yes Status: Acute Sodium: 123->125->130meq on po sodium History significant for alcohol abuse; currently 2-3 beers daily, does not drink hard liquor; on CIWA protocol, no signs of agitation P: Continue PO sodium, discussion regarding alcohol abuse/dependence with patient (3) Alcohol abuse Current Visit: Yes Status: Chronic Management as above (4) Bilateral leg weakness Current Visit: Yes Status: Acute MRI shows diffuse lumbar narrowing; chronic IMPRESSION: 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 Disc and osteophytes result in narrowing of the neural foramina throughout the lumbar spine as discussed above. There is moderate stenosis of the thecal sac at L4-5. no saddle anesthesia/no urinary incontinence/no headache Unlikely B12/folate component (5) Anemia Current Visit: Yes Status: Chronic Ordering iron studies; b12, folate Qualifiers: Anemia type: other cause Other causes of anemia: other cause, not classified Qualified Code(s): D64.89 - Other specified anemias Subjective Principal diagnosis: leg pain, a.fib Interval history: Continues to deny headaches, nausea, malaise, or confusion. Also on CIWA per alcohol history. PT to see patient today. Objective - Vital Signs Vital signs: Vital Signs Temp Pulse Resp BP Pulse Ox 02/21/18 10:58 98.5 F 82 16 132/75 95 02/21/18 07:25 98.2 F 82 17 137/66 99 02/21/18 03:25 97.8 F 85 16 127/69 100 02/20/18 23:45 98 F 82 15 135/85 95 02/20/18 20:47 97.6 F 68 16 121/72 96 02/20/18 15:15 97.9 F 61 16 100/50 99 Intake and Output 0702/21/18 02/21/18 23:59 07:59 15:59 Intake Total 360 / 360 Output Total 100 / 100 225 / 225 Balance -100 / -100 -225 / -225 360 / 360 Intake: Oral 360 / 360 Output: Urine 100 / 100 225 / 225 Other: Meal Breakfast Percent of Meal Consumed 100% Weight 105 kg Patient Weight 02/21/18 23:59 Weight 105 kg - General Appearance General appearance: Present: well-developed, well-nourished, appears started age Neck: Present: no JVD, no thyromegaly, no carotid bruit, supple Cardiology: Present: no murmurs, no rub, no gallops, no edema, irregular rhythm , normal S1, normal S2 Gastrointestinal: Present: normoactive bowel sounds, no tenderness Integumentary: Present: no rash, warm and dry Neurologic: Present: no focal deficit, no asterixis, alert and oriented x3, reflexes 2+ and symmetric. Absent: aphasia, facial droop Musculoskeletal: Present: no deformities, no erythema, no cyanosis, no clubbing Psychiatric: Present: mood/affect appropriate, cooperative - Lab 02/21/18 04:49 02/21/18 04:49 Most recent lab results Calcium 9.1 mg/dL (8.6-10.3) 02/21/18 04:49 Magnesium 1.6 mg/dL (1.6-2.6) 02/19/18 07:09 Urine Sodium 14.0 mEq/L 02/18/18 20:45 - VTE Documentation of Mechanical Device: Intermittent pneumatic compression device Consult Discharge Plan - Plan Referrals: Cedrick Adam DO [Primary Care Provider] -
[2018-02-21] MEDS ORDERED: *HR* LORazepam 1 MG TABLET PO PRN (15:09)
[2018-02-21] MEDS ORDERED: Lactulose Oral Soln 20 GM/30 ML UDC PO PRN (15:10)
--- NOTE | 2018-02-21 17:41 | Internal Med Progress Note ---
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 Disc and osteophytes result in narrowing of the neural foramina throughout the lumbar spine as discussed above. There is moderate stenosis of the thecal sac at L4-5. - severity rogers , patient is 7/10 in the R leg, and 5/10 in the L leg - He continues to be on his home muscle relaxer Tizanidine, and Mobic for symptom control - Orthopedic Surgery has been consulted , spoke to Dr Chi over the phone and he said he will evaluate he patient. (2) Atrial fibrillation with RVR Current Visit: Yes Status: Acute Assessment and plan: -patient has a Hx of Afib RVR --[id number] score 4 (age, HTN, CHF, DM). Not on oral anticoagulation due to GI bleed on xarelto. On asa. -patient on Cardezam 120 mg PO daily, metoporollo 100mg PO BID -As per Cardiology , they Recommend outpatient sleep study. Can consider outpatient stress. cardiology signed off (3) Hyponatremia Current Visit: Yes Status: Acute Assessment and plan: -Sodium: 123->125->130- > `136 meq on po sodium -History significant for alcohol abuse; currently 2-3 beers daily, does not drink hard liquor; , no signs of agitation -Continue PO sodium, discussion regarding alcohol abuse/dependence with patient - Continue monitoring patient's electrolytes (4) Anemia Current Visit: Yes Status: Chronic Assessment and plan: - patient has a Hx of drinking 2-3 beer. Anemia could be secondary to malnutrition. It could also be secondary to his GI bleed. -patient MCV was 71.8 on admission, currently it is 78.2, His Iron was 25 - ordered ferrous sulphate 325 PO daily to address his anemia Qualifiers: Anemia type: other cause Other causes of anemia: other cause, not classified Qualified Code(s): D64.89 - Other specified anemias (5) Alcohol abuse Current Visit: Yes Status: Chronic Assessment and plan: - patient has a Hx of drinking 2-3 beers /daily - He's currently on the CIWA protocol. We will most likely discontinue his CIW and put him on Ativan 1mg TID - we will continue to monitor for any sings of withdrawal, when discharged he could benefit from AA groups (6) CHF exacerbation Current Visit: Yes Status: Acute Assessment and plan: -patient has a Hx of CHF BNP 140 on admission, net Is/Os : 295 ml, EchO: LVEF: 55% - He's on 20mg PO Lasix, and 100mg metoprolol - conitniue monitoring patient's vitals Qualifiers: Heart failure type: diastolic Qualified Code(s): I50.33 - Acute on chronic diastolic (congestive) heart failure (7) Sciatica Current Visit: Yes Status: Acute Assessment and plan: - patient was diagnosed wth sciatics on february 10 - his pain is controlled on mobic, and muscle relaxers - Ortho has been consulted Qualifiers: Laterality: bilateral Qualified Code(s): M54.31 - Sciatica, right side; M54.32 - Sciatica, left side (8) Pressure ulcer of sacrum Current Visit: Yes Status: Chronic Qualifiers: Pressure injury stage: unspecified pressure injury stage Qualified Code(s) : L89.159 - Pressure ulcer of sacral region, unspecified stage (9) GERD (gastroesophageal reflux disease) Current Visit: Yes Status: Chronic Assessment and plan: - patient has a Hx of GERD -he continues to be on home medications Prilosec 40 mg PO daily - will continue to monitor Qualifiers: Esophagitis presence: esophagitis presence not specified Qualified Code(s) : K21.9 - Gastro-esophageal reflux disease without esophagitis (10) HTN (hypertension) Current Visit: Yes Status: Resolved Qualifiers: Hypertension type: essential hypertension Qualified Code(s): I10 - Essential (primary) hypertension - Time Spent With Patient Total time spent is greater than 50% in coordination of care (as documented) at patient's floor/unit and/or counseling patient: - Subjective Interval history: No acute events overnight. This is his 3rd day of hospital stay. Patient's hyponatremia has been resolved. - Constitutional Vitals: Temp Pulse Resp BP Pulse Ox 97.4 F L 65 16 111/67 96 02/21/18 15:20 02/21/18 15:20 02/21/18 15:20 02/21/18 15:20 02/21/18 15:20 General appearance: Present: cooperative, mild distress (Leg pain), A&O X 3, pleasant, obese, answers questions appropriately - Head Head exam: Present: atraumatic, normocephalic - Respiratory Respiratory exam: Present: CTAB - Cardiovascular Cardiovascular exam: Present: RRR - Back Exam Additional comments: tender to palpation - Neurological Exam Neurological exam: Present: oriented X3 Additional comments: straight leg test positive on the right leg . Internal Medicine: Result - Labs CBC & Chem 7: 02/21/18 04:49 02/21/18 04:49 Labs: Short CBC 02/21/18 Range/Units 04:49 WBC 9.9 (4.3-11.1) K/mcL Hgb 9.0 L (12.9-16.9) g/dL Hct 30.5 L (37.5-50.1) % Plt Count 320 (140-400) K/mcL Neutrophils # 6.9 (1.6-8.9) K/mcL BMP 02/21/18 04:49 Sodium 136 Potassium 4.5 Chloride 101 Carbon Dioxide 29 BUN 30 H Creatinine 1.30 Glucose 111 H Calcium 9.1 Liver Function 02/21/18 Range/Units 04:49 Total Bilirubin 0.5 (0.3-1.0) mg/dL AST 16 (13-39) Units/L ALT 10 (7-52) Units/L Alkaline Phosphatase 64 (34-104) Units/L Albumin 3.6 (3.5-5.7) g/dL - ABG Interpretation ABG results: PT/INR, D-dimer PT 12.6 Seconds (9.4-12.1) H 02/19/18 07:09 - Impressions Impressions Lumbar Spine MRI 02/20/18 09:01 IMPRESSION: 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 Disc and osteophytes result in narrowing of the neural foramina throughout the lumbar spine as discussed above. There is moderate stenosis of the thecal sac at L4-5. D/ / 02/20/2018 10:40:41 Just[facility] Bruce [facility] Interpreting Provider: Justine Bruce MD - VTE Documentation of Mechanical Device: Intermittent pneumatic compression device Consult Discharge Plan - Plan Referrals: Cedrick Adam DO [Primary Care Provider] - <KeishadominickanthonyKaci sharp - Last Filed: 02/22/18 08:22> Date of Encounter: 02/21/18 - Assessment and plan (1) Bilateral leg weakness Current Visit: Yes Status: Acute (2) Atrial fibrillation with RVR Current Visit: Yes Status: Acute (3) Hyponatremia Current Visit: Yes Status: Acute (4) Anemia Current Visit: Yes Status: Chronic Qualifiers: Anemia type: other cause Other causes of anemia: other cause, not classified Qualified Code(s): D64.89 - Other specified anemias (5) Alcohol abuse Current Visit: Yes Status: Chronic (6) CHF exacerbation Current Visit: Yes Status: Acute Qualifiers: Heart failure type: diastolic Qualified Code(s): I50.33 - Acute on chronic diastolic (congestive) heart failure (7) Sciatica Current Visit: Yes Status: Acute Qualifiers: Laterality: bilateral Qualified Code(s): M54.31 - Sciatica, right side; M54.32 - Sciatica, left side (8) Pressure ulcer of sacrum Current Visit: Yes Status: Chronic Qualifiers: Pressure injury stage: unspecified pressure injury stage Qualified Code(s) : L89.159 - Pressure ulcer of sacral region, unspecified stage (9) GERD (gastroesophageal reflux disease) Current Visit: Yes Status: Chronic Qualifiers: Esophagitis presence: esophagitis presence not specified Qualified Code(s) : K21.9 - Gastro-esophageal reflux disease without esophagitis (10) HTN (hypertension) Current Visit: Yes Status: Resolved Qualifiers: Hypertension type: essential hypertension Qualified Code(s): I10 - Essential (primary) hypertension - Time Spent With Patient Total time spent is greater than 50% in coordination of care (as documented) at patient's floor/unit and/or counseling patient: - Constitutional Vitals: Temp Pulse Resp BP Pulse Ox 98.1 F 79 15 110/74 95 02/22/18 06:52 02/22/18 06:52 02/22/18 06:52 02/22/18 06:52 02/22/18 06:52 Internal Medicine: Result - Labs CBC & Chem 7: 02/21/18 04:49 02/21/18 04:49 - ABG Interpretation ABG results: PT/INR, D-dimer PT 12.6 Seconds (9.4-12.1) H 02/19/18 07:09 - Attending Attestation I examined this patient and my medical decision-making was reviewed with the Resident Physician Dr. Chaudhari. I agree with the documented findings, disposition and treatment plan as described except to the extent set forth below. Mr. Munguia is a 67 year old male w/PMH of previous [place] in 2004 without stent placement, HTN, HLD, COPD, Diastolic CHF, sciatica, atrial fibrillation, and GERD presents from [facility] ED with chief complaint of bilateral leg weakness for the past 2-3 days. Also reports SOB and uses 2.5L O2 @ home. Reports hx of chronic Afib and was previously on Xarelto but stopped d/t rectal bleeding. Pt. states his bilateral legs are painful and cramping. Pt. also reports drinking beer daily. He still c/o b/l leg pain and weakness, unable to ambulate well. His lower back pain is radiating mainly into Rt leg. His abdomen girth also increased in size. Gen: A, A, O x 3 Chest : No wheezing, no crackles. diminished BS b/l Heart; S1S2+ afib Abd : distended, fluid thrill +, No guarding, no rigidity a/p 1. Acute b/l LE weakness 2. Moderate spinal stenosis 3. Lumbar radiculoapthy / Rt side sciatica Spine surgery consulted PT / OT eval 4. Chronic hypoxic resp failure 5. Hyponatremia due to volume overload improved fluid restriction Cont Lasix 6. 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 Chronic Iron def anemia due to GI bleed need out pt f/u with GI for possible EGD cont Iron supplements
[2018-02-21] MEDS: traZODone 50 MG TABLET PO SCH (20:23)
[2018-02-22] MEDS: tiZANidine 4 MG TABLET PO PRN ×2 (00:57→22:24)
[2018-02-22] MEDS: Metoprolol 100 MG TABLET PO SCH (07:44)
[2018-02-22] MEDS: Gabapentin 300 MG CAPSULE PO SCH ×3 (07:44→22:14)
[2018-02-22] MEDS: Aspirin Enteric Coated 81 MG Tablet PO SCH (07:44)
[2018-02-22] MEDS: Folic Acid 1 MG TABLET PO SCH (07:44)
[2018-02-22] MEDS: Diltiazem CD (24hr) 120 MG CAPSULE PO SCH (07:44)
[2018-02-22] MEDS: Vitamin B Complex/Vit C/Vit E 1 EACH TABLET PO SCH (07:44)
[2018-02-22] MEDS: Thiamine (B-1) 100 MG TABLET PO SCH (07:44)
[2018-02-22] MEDS: Furosemide 20 MG TABLET PO SCH (07:44)
--- NOTE | 2018-02-22 08:14 | Internal Med Progress Note ---
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 Disc and osteophytes result in narrowing of the neural foramina throughout the lumbar spine as discussed above. There is moderate stenosis of the thecal sac at L4-5. - He continues to be on his home muscle relaxer Tizanidine, his Mobic and Naproxen has been discontinued because of the risk of bleeding - Dr Zepeda recommended: PT in the hospital with rehab, Appointment with [facility] for out patient epidural steroid injection. If that doesn't help then he can potentially be a candidate for surgery (2) Atrial fibrillation with RVR Current Visit: Yes Status: Acute Assessment and plan: -patient has a Hx of Afib RVR --[id number] score 4 (age, HTN, CHF, DM). Not on oral anticoagulation due to GI bleed on xarelto. On asa. -patient on Cardezam 120 mg PO leelee -As per Cardiology , they Recommend outpatient sleep study. Can consider outpatient stress. cardiology signed off (3) Hyponatremia Current Visit: Yes Status: Resolved Assessment and plan: -Sodium: 123->125->130- > `137 meq on po sodium -History significant for alcohol abuse; currently 2-3 beers daily, does not drink hard liquor; , no signs of agitation -Continue PO sodium, discussion regarding alcohol abuse/dependence with patient - Continue monitoring patient's electrolytes (4) Anemia Current Visit: Yes Status: Chronic Assessment and plan: - patient has a Hx of drinking 2-3 beer. Anemia could be secondary to malnutrition. It could also be secondary to his GI bleed. -patient MCV was 71.8 on admission, currently it is 78.2, His Iron was 25 - ordered ferrous sulphate 325 PO daily to address his anemia - will check CBC this AM to monitor H&H Qualifiers: Anemia type: other cause Other causes of anemia: other cause, not classified Qualified Code(s): D64.89 - Other specified anemias (5) Alcohol abuse Current Visit: Yes Status: Chronic Assessment and plan: - patient has a Hx of drinking 2-3 beers /daily -patient hasn't exhibited any sings of confusio, withdrawal or hallucinaton on physical exam - His CIWA protocol has been discontinued - we will continue to monitor for any sings of withdrawal/confusion or hallucination, when discharged he could benefit from AA groups (6) CHF exacerbation Current Visit: Yes Status: Acute Assessment and plan: -patient has a Hx of CHF BNP 140 on admission, net Is/Os : 295 ml, EchO: LVEF: 55% - He has been transitioned to 20mg IV Lasix - continue monitoring patient's vitals Qualifiers: Heart failure type: diastolic Qualified Code(s): I50.33 - Acute on chronic diastolic (congestive) heart failure (7) Sciatica Current Visit: Yes Status: Acute Assessment and plan: -secondary to his recently diagnosed sciatica - MRI showed 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 Disc and osteophytes result in narrowing of the neural foramina throughout the lumbar spine as discussed above. There is moderate stenosis of the thecal sac at L4-5. - He continues to be on his home muscle relaxer Tizanidine, his Mobic and Naproxen has been discontinued because of the risk of bleeding - Dr Zepeda recommended: PT in the hospital with rehab, Appointment with [facility] for out patient epidural steroid injection. If that doesn't help then he can potentially be a candidate for surgery Qualifiers: Laterality: bilateral Qualified Code(s): M54.31 - Sciatica, right side; M54.32 - Sciatica, left side (8) Pressure ulcer of sacrum Current Visit: Yes Status: Chronic Assessment and plan: Hx of chronic pressure ulcer of the sacrum. Air mattress ordered. Wound Care consult and daily wound care ordered. Qualifiers: Pressure injury stage: unspecified pressure injury stage Qualified Code(s) : L89.159 - Pressure ulcer of sacral region, unspecified stage (9) GERD (gastroesophageal reflux disease) Current Visit: Yes Status: Chronic Assessment and plan: - patient has a Hx of GERD -he continues to be on home medications Prilosec 40 mg PO daily - will continue to monitor Qualifiers: Esophagitis presence: esophagitis presence not specified Qualified Code(s) : K21.9 - Gastro-esophageal reflux disease without esophagitis - Time Spent With Patient Total time spent is greater than 50% in coordination of care (as documented) at patient's floor/unit and/or counseling patient: - Subjective Interval history: No acute events overnight. This is his 4th day of hospital stay. Patient's hyponatremia has been resolved. patient did not undergo paracentesis today because the IR didn't think the fluid was optimal. He doesn't seem to be complaining of any sciatic pain today. Dr Zeepda saw him this morning and he recommended PT/OT , Rehab, and then an [facility]. If that doesn't help then he would be a Sx candidate Ortho consult has been put and they'll evaluate hims sometime today . - Constitutional Vitals: Temp Pulse Resp BP Pulse Ox 98.1 F 79 15 110/74 95 02/22/18 06:52 02/22/18 06:52 02/22/18 06:52 02/22/18 06:52 02/22/18 06:52 General appearance: Present: cooperative, mild distress (Leg pain), A&O X 3, pleasant, obese, answers questions appropriately - Head Head exam: Present: atraumatic, normal inspection, normocephalic - ENT ENT exam: Present: mucous membranes moist, normal exam, normal oropharynx - Neck Neck exam general surgery: Present: full ROM, trachea midline - Respiratory Respiratory exam: Present: CTAB Additional comments: no rales, wheezing or ronchi, normal to percussion - Cardiovascular Cardiovascular exam: Present: RRR, +S1, +S2 Additional comments: S1, S2 , PMI normal, no rubs or murmurs, no JVD - GI/Abdominal GI/Abdominal exam: Present: distended Additional comments: distended but no guarding or rebound tenderness, didn't appreciate any hypo or hyper active bowel sounds, no pulsatile masses - Neurological Exam Neurological exam: Present: normal gait Additional comments: no focal neurological deficits, sensory function intact on the extremities, CN II-XII intact - Psychiatric Additional comments: good mentation, no shaking confusion or hallucinations. Internal Medicine: Result - Labs CBC & Chem 7: 02/21/18 04:49 02/22/18 09:04 - ABG Interpretation ABG results: PT/INR, D-dimer PT 12.6 Seconds (9.4-12.1) H 02/19/18 07:09 - VTE Documentation of Mechanical Device: Intermittent pneumatic compression device Consult Discharge Plan - Plan Referrals: Cedrick Adam DO [Primary Care Provider] - 02/28/18 3:30 pm <Kaci López - Last Filed: 02/23/18 07:52> Date of Encounter: 02/22/18 - Assessment and plan (1) Bilateral leg weakness Current Visit: Yes Status: Acute (2) Atrial fibrillation with RVR Current Visit: Yes Status: Acute (3) Hyponatremia Current Visit: Yes Status: Resolved (4) Anemia Current Visit: Yes Status: Chronic Qualifiers: Anemia type: other cause Other causes of anemia: other cause, not classified Qualified Code(s): D64.89 - Other specified anemias (5) Alcohol abuse Current Visit: Yes Status: Chronic (6) CHF exacerbation Current Visit: Yes Status: Acute Qualifiers: Heart failure type: diastolic Qualified Code(s): I50.33 - Acute on chronic diastolic (congestive) heart failure (7) Sciatica Current Visit: Yes Status: Acute Qualifiers: Laterality: bilateral Qualified Code(s): M54.31 - Sciatica, right side; M54.32 - Sciatica, left side (8) Pressure ulcer of sacrum Current Visit: Yes Status: Chronic Qualifiers: Pressure injury stage: unspecified pressure injury stage Qualified Code(s) : L89.159 - Pressure ulcer of sacral region, unspecified stage (9) GERD (gastroesophageal reflux disease) Current Visit: Yes Status: Chronic Qualifiers: Esophagitis presence: esophagitis presence not specified Qualified Code(s) : K21.9 - Gastro-esophageal reflux disease without esophagitis - Time Spent With Patient Total time spent is greater than 50% in coordination of care (as documented) at patient's floor/unit and/or counseling patient: - Constitutional Vitals: Temp Pulse Resp BP Pulse Ox 97.7 F 77 15 123/84 98 02/22/18 15:19 02/22/18 15:19 02/22/18 15:19 02/22/18 15:19 02/22/18 15:19 Internal Medicine: Result - Labs CBC & Chem 7: 02/23/18 04:02 02/23/18 04:02 Labs: BMP 02/22/18 09:04 Sodium 137 Potassium 4.7 Chloride 104 Carbon Dioxide 28 BUN 32 H Creatinine 1.12 Glucose 140 H Calcium 9.0 Liver Function 02/22/18 Range/Units 09:04 Total Bilirubin 0.5 (0.3-1.0) mg/dL AST 18 (13-39) Units/L ALT 11 (7-52) Units/L Alkaline Phosphatase 61 (34-104) Units/L Albumin 3.4 L (3.5-5.7) g/dL - ABG Interpretation ABG results: PT/INR, D-dimer PT 12.6 Seconds (9.4-12.1) H 02/19/18 07:09 - Impressions Impressions Abdomen/Pelvis/Transvag US 02/22/18 09:11 IMPRESSION: 1. No ascites. No paracentesis was performed. D/ / Balbir Ge MD / Balbir Ge MD Interpreting Provider: Balbir Ge MD - Attending Attestation I examined this patient and my medical decision-making was reviewed with the Resident Physician Dr. Chaudhari. I agree with the documented findings, disposition and treatment plan as described except to the extent set forth below. Mr. Munguia is a 67 year old male w/PMH of previous [place] in 2005 without stent placement, HTN, HLD, COPD, Diastolic CHF, sciatica, atrial fibrillation, and GERD presents from [facility] ED with chief complaint of bilateral leg weakness for the past 2-3 days. Also reports SOB and uses 2.5L O2 @ home. Reports hx of chronic Afib and was previously on Xarelto but stopped d/t rectal bleeding. Pt. states his bilateral legs are painful and cramping. Pt. also reports drinking beer daily. He still c/o b/l leg pain and weakness, unable to ambulate well. His lower back pain is radiating mainly into Rt leg. His abdomen girth also increased in size. Overall feels better today Gen: A, A, O x 3 Chest : No wheezing, no crackles. diminished BS b/l Heart; S1S2+ afib Abd : distended, fluid thrill +, No guarding, no rigidity a/p 1. Acute b/l LE weakness 2. Moderate spinal stenosis 3. Lumbar radiculoapthy / Rt side sciatica Spine surgery consulted PT / OT eval 4. Chronic hypoxic resp failure 5. Hyponatremia due to volume overload improved fluid restriction Cont Lasix 6. 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 Chronic Iron def anemia due to GI bleed need out pt f/u with GI for possible EGD cont Iron supplements Possible d/c home in AM
[2018-02-22 09:40] LABS: Alanine Aminotransferase 11 Units/L (7-52); Albumin 3.4 g/dL (3.5-5.7); Albumin/Globulin Ratio 1.2 (1.1-2.2); Alkaline Phosphatase 61 Units/L (34-104); Aspartate Amino Transferase 18 Units/L (13-39); BUN/Creatinine Ratio 29 (6-26); Bilirubin,Total 0.5 mg/dL (0.3-1.0); Blood Urea Nitrogen 32 mg/dL (8-23); Carbon Dioxide 28 mEq/L (23-29); Chloride 104 mEq/L (98-107); Globulin 2.9 g/dL (2.4-3.5); Glucose 140 mg/dL (70-105); Osmolality,Calculated 293 (280-300); Potassium 4.7 mEq/L (3.5-5.1); Sodium 137 mEq/L (136-145); Total Protein 6.3 g/dL (6.4-8.9); eGFR For African Americans > 60 (> 60); eGFR For Non-African Americans > 60 (> 60)
--- NOTE | 2018-02-22 10:58 | Discharge Summary ---
Orders not resulted at time of discharge: Pending orders 02/19/18 11:43 Osmolality,Urine [UCHEM] Routine 02/22/18 09:11 IR US abdomen limited [IR] Routine 02/22/18 09:12 Albumin,Peritoneal Fluid [BF] Routine Cell Cnt w Dif, Peritoneal Fl [BF] Routine Date of Encounter: 02/22/18 - Discharge Diagnosis (1) Bilateral leg weakness Status: Acute (2) Atrial fibrillation with RVR Status: Acute (3) Hyponatremia Status: Acute (4) Anemia Status: Chronic Qualifiers: Anemia type: other cause Other causes of anemia: other cause, not classified Qualified Code(s): D64.89 - Other specified anemias (5) Alcohol abuse Status: Chronic (6) CHF exacerbation Status: Acute Qualifiers: Heart failure type: diastolic Qualified Code(s): I50.33 - Acute on chronic diastolic (congestive) heart failure (7) Sciatica Status: Acute Qualifiers: Laterality: bilateral Qualified Code(s): M54.31 - Sciatica, right side; M54.32 - Sciatica, left side (8) Pressure ulcer of sacrum Status: Chronic Qualifiers: Pressure injury stage: unspecified pressure injury stage Qualified Code(s) : L89.159 - Pressure ulcer of sacral region, unspecified stage (9) GERD (gastroesophageal reflux disease) Status: Chronic Qualifiers: Esophagitis presence: esophagitis presence not specified Qualified Code(s) : K21.9 - Gastro-esophageal reflux disease without esophagitis (10) HTN (hypertension) Status: Resolved Qualifiers: Hypertension type: essential hypertension Qualified Code(s): I10 - Essential (primary) hypertension Hospital course: Mr. Munguia is a 67 year old male - Time Spent with Patient Total time spent providing and/or coordinating discharge services: - Discharge Medications Home Medications: Aspirin Enteric Coated [Aspirin EC] 81 mg PO DAILY 04/06/17 [History] Calcium Carbonate [Calcium] 500 mg PO DAILY 04/06/17 [History] Clobetasol Propionate 0.05% [Temovate] 1 appl TP BID PRN 04/06/17 [History] Furosemide [Lasix] 20 mg PO DAILY 04/06/17 [History] Gabapentin [Neurontin] 600 mg PO TID 04/06/17 [History] Metoprolol [Lopressor] 100 mg PO BID 04/06/17 [History] Omeprazole [PriLOSEC] 40 mg PO DAILY 04/06/17 [History] Oxygen 2 l .ROUTE AD 04/06/17 [History] Polyethylene Glycol 3350 [MiraLAX] 17 gm PO DAILY PRN 04/06/17 [History] Potassium 99 mg PO DAILY 04/06/17 [History] Terazosin [Hytrin] 5 mg PO HS 04/06/17 [History] Tizanidine HCl 4 mg PO TID PRN 04/06/17 [History] traZODone [TraZODone] 50 mg PO HS 04/06/17 [History] Meloxicam [Mobic] 7.5 mg PO BID PRN 02/18/18 [History] Naproxen [Naprosyn] 500 mg PO BID 02/18/18 [History] Allergies/Adverse Reactions: 3 Allergy/AdvReac Type Severity Reaction Status Date / Time Penicillins Allergy Swelling Verified 04/06/17 10:19 of Lip/Tongue/Throat prednisone AdvReac See Verified 02/18/18 18:48 Comments Date of admission: 02/18/18 18:32 Primary care physician: Cedrick Adam DO Consults: 02/18/18 17:31 Consult to Correspondence Representative [CONS] Routine Reason for SW Consult: Please assess patient for possible home needs for post -discharge planning. Also assess pt. for counseling r/t current alcohol abuse. 02/18/18 17:32 Consult to Occupational Therapy [CONS] Routine Comment: Evaluate, develop and implement POC Reason for Consult: Patient states that he cannot use his lower extremities d/t weakness for the past 2-3 days. States that he is unable to hold himself up. Please assess patient for strength, stability, safety, and possible home assistive/rehabilitation needs for post-discharge planning. Does patient have active BEDREST order?: Yes Is patient medically & hemodynamically stable?: Yes Patient assessed for mobility or mobilized this visit?: No 02/18/18 17:35 Consult to Physical Therapy [CONS] Routine Comment: Evaluate, develop and implement POC Reason for Consult: Patient states that he cannot use his lower extremities d/t weakness for the past 2-3 days. States that he is unable to hold himself up. Please assess patient for strength, stability, safety, and possible home assistive/rehabilitation needs for post-discharge planning. Does patient have active BEDREST order?: Yes Is patient medically & hemodynamically stable?: Yes Patient assessed for mobility or mobilized this visit?: No 02/18/18 17:54 Consult to Wound Care [CONS] Routine Reason for Consult: Patient has painful wounds present on the coccyx from not being able to ambulate. Please make recommendations for daily wound care. 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 Pt. also has hx of CHF. BNP ordered to assess status before starting NS. Call Completed: Yes 02/18/18 18:02 Consult to Cardiology [CONS] Routine Comment: Consulting Provider: Cardiology [facility] Reason for Consult: Pt. has hx of atrial fibrillation. Now in Afib w/RVR on admission. Pt. previously on Xarelto approx. 2 years ago but stopped d/t rectal bleeding. Only takes baby aspirin daily. Pt. also has chronic hx of hyponatremia, possibly d/t beer potomania r/t daily beer drinking. Nephrology consulted. Echocardiogram ordered. Cardizem 20 mg once. Heparin drip ordered. Call Completed: Yes 02/18/18 18:26 Consult to Nutrition [CONS] Routine Comment: Ensure supplementation d/t alcohol use Consulting Provider: NUTRITION Reason for Dietary Consult: PO Supplementation 02/21/18 17:50 Consult to Orthopedic Surgery [CONS] Routine Consulting Provider: [facility] Reason for Consult: radiculopathy Call Completed: Yes 02/22/18 09:09 Consult to Interventional Radiology [CONS] Routine Consulting Provider: Radiology Interventional Cols Reason for Consult: paracentesis Time Notified: 09:10 Call Completed: Yes - Constitutional Vitals: Temp Pulse Resp BP Pulse Ox 98.1 F 79 15 110/74 95 02/22/18 06:52 02/22/18 06:52 02/22/18 06:52 02/22/18 06:52 02/22/18 06:52 General appearance: Present: cooperative, mild distress (Leg pain), A&O X 3, pleasant, obese, answers questions appropriately - Discharge Instructions Follow Up With: Cedrick Adam DO [Primary Care Provider] - 02/28/18 3:30 pm - VTE Documentation of Mechanical Device: Intermittent pneumatic compression device
[2018-02-22] MEDS ORDERED: Furosemide 20 MG/2 ML VIAL IVP ONE (11:47)
[2018-02-22] MEDS: traZODone 50 MG TABLET PO SCH (22:14)
[2018-02-23 04:38] LABS: Basophils % 0.4 %; Eosinophils # 0.8 K/mcL (0.0-0.6); Eosinophils % 8.7 %; Hematocrit 26.6 % (37.5-50.1); Hemoglobin 8.1 g/dL (12.9-16.9); Immature Granulocytes % 0.4 % (0-4); Lymphocytes # 1.9 K/mcL (0.6-4.6); Lymphocytes % 20.9 %; Mean Corpuscular HGB Conc 30.5 g/dL (31.6-35.5); Mean Corpuscular Volume 78.7 fL (83.0-100.0); Mean Platelet Volume 11.4 fL (9.4-12.4); Monocytes # 0.8 K/mcL (0.0-1.3); Monocytes % 8.8 %; Neutrophils # 5.6 K/mcL (1.6-8.9); Nucleated Red Blood Cells 0.3 /100 WBC (0); Platelet Count 311 K/mcL (140-400); Red Blood Count 3.38 M/mcL (4.19-5.50); Red Cell Distribution Width 22.8 % (11.5-14.5); Segmented Neutrophils % 60.8 %
[2018-02-23 05:00] LABS: BUN/Creatinine Ratio 30 (6-26); Blood Urea Nitrogen 33 mg/dL (8-23); Carbon Dioxide 31 mEq/L (23-29); Chloride 103 mEq/L (98-107); Glucose 111 mg/dL (70-105); Osmolality,Calculated 294 (280-300); Potassium 4.4 mEq/L (3.5-5.1); Sodium 138 mEq/L (136-145); eGFR For African Americans > 60 (> 60); eGFR For Non-African Americans > 60 (> 60)
[2018-02-23] MEDS: Vitamin B Complex/Vit C/Vit E 1 EACH TABLET PO SCH (08:31)
[2018-02-23] MEDS: Aspirin Enteric Coated 81 MG Tablet PO SCH (08:31)
[2018-02-23] MEDS: tiZANidine 4 MG TABLET PO PRN (08:31)
[2018-02-23] MEDS: Gabapentin 300 MG CAPSULE PO SCH (08:31)
[2018-02-23] MEDS: Folic Acid 1 MG TABLET PO SCH (08:31)
[2018-02-23] MEDS: Diltiazem CD (24hr) 120 MG CAPSULE PO SCH (08:31)
[2018-02-23] MEDS: Thiamine (B-1) 100 MG TABLET PO SCH (08:31)
[2018-02-23] MEDS ORDERED: Furosemide 20 MG/2 ML VIAL IVP SCH (09:00)
[2018-02-23 11:04] VITALS: BP 119/64
--- NOTE | 2018-02-23 11:41 | Physician Discharge Referral ---
Home Health/Hosp Referral Info Transfer to: Home Health Attending Provider: Rene Provider in Charge Post Discharge: PCP - Diagnosis (1) Bilateral leg weakness Priority: Primary Status: Acute (2) Atrial fibrillation with RVR Priority: Secondary Status: Acute (3) CHF exacerbation Priority: Secondary Status: Acute (4) COPD (chronic obstructive pulmonary disease) Priority: Secondary Status: Chronic (5) Pressure ulcer of sacrum Priority: Secondary Status: Chronic (6) HLD (hyperlipidemia) Priority: Secondary Status: Chronic - Respiratory Orders Oxygen / L per min (Titrate to SpO2 >88%) Smoking Cessation: Smoking cessation has been advised. For more information, call the [place] Tobacco Quit Line at 0-590-SNMI-NOW. - Diet/Nutrition Diet/Nutrition Orders: Regular - Activity Activity Orders: Walker - Services Needed Following services are medically necessary services: Nursing, Home Health Aide, Physical Therapy, Occupational Therapy - Transfer Medications Home Medications: Aspirin Enteric Coated [Aspirin EC] 81 mg PO DAILY 04/06/17 [History] Calcium Carbonate [Calcium] 500 mg PO DAILY 04/06/17 [History] Clobetasol Propionate 0.05% [Temovate] 1 appl TP BID PRN 04/06/17 [History] Furosemide [Lasix] 20 mg PO DAILY 04/06/17 [History] Gabapentin [Neurontin] 600 mg PO TID 04/06/17 [History] Metoprolol [Lopressor] 100 mg PO BID 04/06/17 [History] Omeprazole [PriLOSEC] 40 mg PO DAILY 04/06/17 [History] Oxygen 2 l .ROUTE AD 04/06/17 [History] Polyethylene Glycol 3350 [MiraLAX] 17 gm PO DAILY PRN 04/06/17 [History] Potassium 99 mg PO DAILY 04/06/17 [History] Terazosin [Hytrin] 5 mg PO HS 04/06/17 [History] Tizanidine HCl 4 mg PO TID PRN 04/06/17 [History] traZODone [TraZODone] 50 mg PO HS 04/06/17 [History] Meloxicam [Mobic] 7.5 mg PO BID PRN 02/18/18 [History] Naproxen [Naprosyn] 500 mg PO BID 02/18/18 [History] Allergies/Adverse Reactions: 3 Allergy/AdvReac Type Severity Reaction Status Date / Time Penicillins Allergy Swelling Verified 04/06/17 10:19 of Lip/Tongue/Throat prednisone AdvReac See Verified 02/18/18 18:48 Comments Certification: Further, I certify that my clinical findings support that this patient is homebound (i.e. absences from home require considerable and taxing effort and are for medical reasons or hinduism services or infrequently or short duration when for other reasons) because: Homebound Reason: Patient requires assistance of a person or device to safely leave home, Leaving home requires considerable and taxing effort due to condition, Severity of cardiac or pulmonary status limits activity tolerance Attestation: My signature below is to certify that this patient is under my care and that I, or nurse practitioner, or a physician's restaurant assistant manager working with me, has a face-to -face encounter with this patient.
--- NOTE | 2018-02-23 13:47 | Discharge Summary ---
<Alli Chaudhari - Last Filed: 02/23/18 15:51> - NOTES TO OUTPATIENT PROVIDER Notes to Outpatient Provider: Patient was admitted on february 18 for b/l leg weakness also found to have hyponatremia . Hyponatremia was adequately treated . Patient was also found to have microcytic anemia and was given ferrous sulphate 325 PO. He need periodic monitoring of H&H and that is totally at the discretion of the PCP. He underwent Afib during his hospital stay and was given Cardizem 120mg PO, owing to his Hx of GI bleed he was not on oral anticagulation. He needs to get an outpatient endoscopy for his Hx GI bleeding. For his pain management it would be advisable to avoid any NSAIDs owing to the GI bleed, and use Tylenol PRN, he could continue on his Tizandine. For his leg pain he needs PT/OT, and if that doesn't help, [facility] and benefit from epidural steroids as an out-patient. 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 Disc and osteophytes result in narrowing of the neural foramina throughout the lumbar spine as discussed above. There is moderate stenosis of the thecal sac at L4-5. - He continues to be on his home muscle relaxer Tizanidine, his Mobic and Naproxen has been discontinued because of the risk of bleeding - Dr Zepeda recommended: PT in the hospital with rehab, Appointment with photo mask pattern generator [facility] for out patient epidural steroid injection. If that doesn't help then he can potentially be a candidate for surgery (2) Atrial fibrillation with RVR Priority: Secondary Status: Acute Assessment and Plan: -patient has a Hx of Afib RVR --[id number] score 4 (age, HTN, CHF, DM). Not on oral anticoagulation due to GI bleed on xarelto. On asa. -patient on Cardezam 120 mg PO leelee -As per Cardiology , they recommend outpatient sleep study. Can consider outpatient stress. (3) CHF exacerbation Priority: Secondary Status: Acute Assessment and Plan: -patient has a Hx of CHF BNP 140 on admission, net Is/Os : 295 ml, EchO: LVEF: 55% - He has been transitioned to 20mg IV Lasix - continue monitoring patient's vitals Qualifiers: Heart failure type: diastolic Qualified Code(s): I50.33 - Acute on chronic diastolic (congestive) heart failure (4) COPD (chronic obstructive pulmonary disease) Priority: Secondary Status: Chronic Assessment and Plan: Hx of chronic COPD. Stable. Supplemental O2 w/titration and SpO2 monitoring. DuoNebs Q6HR PRN. Qualifiers: COPD type: unspecified COPD Qualified Code(s): J44.9 - Chronic obstructive pulmonary disease, unspecified (5) Pressure ulcer of sacrum Priority: Secondary Status: Chronic Assessment and Plan: Hx of chronic pressure ulcer of the sacrum. Air mattress ordered. Wound Care consult and daily wound care ordered. Qualifiers: Pressure injury stage: unspecified pressure injury stage Qualified Code(s) : L89.159 - Pressure ulcer of sacral region, unspecified stage (6) HLD (hyperlipidemia) Priority: Secondary Status: Chronic Assessment and Plan: Hx of chronic HLD. Lipid panel in a.m. Pt. does not currently take statin. Consider adding Lipitor to home medications based on lipid panel results. Qualifiers: Hyperlipidemia type: pure hypercholesterolemia Qualified Code(s): E78.00 - Pure hypercholesterolemia, unspecified; E78.0 - Pure hypercholesterolemia Hospital course: Mr. Munguia is a 67 year old male with a PMHx of COPD, HLD, CHF was admitted to our hospital for progressively increasing b/l leg pain (R more than the L) on 08/01. He was earlier given PO prednisone by his PCP but he never took those medications because he didn't like the way it made him feel. During the course of his hospital stay, patient also developed hyponatremia secondary to beer potomania, was treated and it eventually resolved . He was also in Afib RVr and was on oral cradizem (120mg PO). Patient has been advised to cut down on his beers. Patient has been given a written prescription for a walker. - Time Spent with Patient Total time spent providing and/or coordinating discharge services: - Discharge Medications Prescriptions: Acetaminophen [Tylenol] 650 mg PO Q6HR PRN #15 tablet PRN Reason: Mild Pain/Fever Diltiazem CD (24hr) [Cardizem CD] 120 mg PO DAILY #30 cap.er.24h Ferrous Sulfate 325 mg PO DAILY@0800 #30 tablet Folic Acid 1 mg PO DAILY #30 tablet Lactulose 10 gm PO BID PRN #30 udc PRN Reason: Constipation Sodium Chloride [Sodium Chloride Tab] 1 gm PO BID #60 tablet Thiamine (B-1) [Vitamin B-1] 100 mg PO DAILY #30 tablet Vitamin B Complex/Vit C/Vit E [Stresstab] 1 each PO DAILY #30 tablet Home Medications: Aspirin Enteric Coated [Aspirin EC] 81 mg PO DAILY 04/06/17 [History] Calcium Carbonate [Calcium] 500 mg PO DAILY 04/06/17 [History] Clobetasol Propionate 0.05% [Temovate] 1 appl TP BID PRN 04/06/17 [History] Furosemide [Lasix] 20 mg PO DAILY 04/06/17 [History] Gabapentin [Neurontin] 600 mg PO TID 04/06/17 [History] Omeprazole [PriLOSEC] 40 mg PO DAILY 04/06/17 [History] Oxygen 2 l .ROUTE AD 04/06/17 [History] Polyethylene Glycol 3350 [MiraLAX] 17 gm PO DAILY PRN 04/06/17 [History] Potassium 99 mg PO DAILY 04/06/17 [History] Terazosin [Hytrin] 5 mg PO HS 04/06/17 [History] Tizanidine HCl 4 mg PO TID PRN 04/06/17 [History] traZODone [TraZODone] 50 mg PO HS 04/06/17 [History] Acetaminophen [Tylenol] 650 mg PO Q6HR PRN #15 tablet 02/23/18 [Rx] Diltiazem CD (24hr) [Cardizem CD] 120 mg PO DAILY #30 cap.er.24h 02/23/18 [Rx] Ferrous Sulfate 325 mg PO DAILY@0800 #30 tablet 02/23/18 [Rx] Folic Acid 1 mg PO DAILY #30 tablet 02/23/18 [Rx] Lactulose 10 gm PO BID PRN #30 udc 02/23/18 [Rx] Sodium Chloride [Sodium Chloride Tab] 1 gm PO BID #60 tablet 02/23/18 [Rx] Thiamine (B-1) [Vitamin B-1] 100 mg PO DAILY #30 tablet 02/23/18 [Rx] Vitamin B Complex/Vit C/Vit E [Stresstab] 1 each PO DAILY #30 tablet 02/23/18 [ Rx] Allergies/Adverse Reactions: 3 Allergy/AdvReac Type Severity Reaction Status Date / Time Penicillins Allergy Swelling Verified 04/06/17 10:19 of Lip/Tongue/Throat prednisone AdvReac See Verified 02/18/18 18:48 Comments Date of admission: 02/18/18 18:32 Primary care physician: Cedrick Adam DO Consults: 02/18/18 17:31 Consult to Clipper Machine Operator [CONS] Routine Reason for SW Consult: Please assess patient for possible home needs for post -discharge planning. Also assess pt. for counseling r/t current alcohol abuse. 02/18/18 17:32 Consult to Occupational Therapy [CONS] Routine Comment: Evaluate, develop and implement POC Reason for Consult: Patient states that he cannot use his lower extremities d/t weakness for the past 2-3 days. States that he is unable to hold himself up. Please assess patient for strength, stability, safety, and possible home assistive/rehabilitation needs for post-discharge planning. Does patient have active BEDREST order?: Yes Is patient medically & hemodynamically stable?: Yes Patient assessed for mobility or mobilized this visit?: No 02/18/18 17:35 Consult to Physical Therapy [CONS] Routine Comment: Evaluate, develop and implement POC Reason for Consult: Patient states that he cannot use his lower extremities d/t weakness for the past 2-3 days. States that he is unable to hold himself up. Please assess patient for strength, stability, safety, and possible home assistive/rehabilitation needs for post-discharge planning. Does patient have active BEDREST order?: Yes Is patient medically & hemodynamically stable?: Yes Patient assessed for mobility or mobilized this visit?: No 02/18/18 17:54 Consult to Wound Care [CONS] Routine Reason for Consult: Patient has painful wounds present on the coccyx from not being able to ambulate. Please make recommendations for daily wound care. 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 Pt. also has hx of CHF. BNP ordered to assess status before starting NS. Call Completed: Yes 02/18/18 18:02 Consult to Cardiology [CONS] Routine Comment: Consulting Provider: Cardiology Wilsey Reason for Consult: Pt. has hx of atrial fibrillation. Now in Afib w/RVR on admission. Pt. previously on Xarelto approx. 2 years ago but stopped d/t rectal bleeding. Only takes baby aspirin daily. Pt. also has chronic hx of hyponatremia, possibly d/t beer potomania r/t daily beer drinking. Nephrology consulted. Echocardiogram ordered. Cardizem 20 mg once. Heparin drip ordered. Call Completed: Yes 02/18/18 18:26 Consult to Nutrition [CONS] Routine Comment: Ensure supplementation d/t alcohol use Consulting Provider: NUTRITION Reason for Dietary Consult: PO Supplementation 02/21/18 17:50 Consult to Orthopedic Surgery [CONS] Routine Consulting Provider: [facility] Reason for Consult: radiculopathy Call Completed: Yes 02/22/18 09:09 Consult to Interventional Radiology [CONS] Routine Consulting Provider: Radiology Interventional Cols Reason for Consult: paracentesis Time Notified: 09:10 Call Completed: Yes - Constitutional Vitals: Temp Pulse Resp BP Pulse Ox 97.8 F 84 16 119/64 100 02/23/18 10:58 02/23/18 10:58 02/23/18 10:58 02/23/18 10:58 02/23/18 10:58 General appearance: Present: cooperative, mild distress (Leg pain), A&O X 3, pleasant, obese, answers questions appropriately - Head Head exam: Present: atraumatic, normal inspection, normocephalic - Respiratory Additional comments: CTAB, no egophony, no tactile fremitus, nl percussion - Cardiovascular Additional comments: RRR, PMI not displaced, S1S2 nl - GI/Abdominal GI/Abdominal exam: Present: rigid Additional comments: no guarding or rebound tendernness - Extremities Exam Additional comments: -ROM appropriate to his condition, pulses symmetrical bilaterally, skin warm and with good turgor - Patient Status Disposition: Home Health Service Condition: Good - Discharge Instructions Follow Up With: Cedrick Adam DO [Primary Care Provider] - 02/28/18 3:30 pm - Diet and Activity Activity: ambulate only with your walker, resume usual activities as tolerated Diet: low fat, low cholesterol, low salt diet - VTE Documentation of Mechanical Device: Intermittent pneumatic compression device <Kaci López - Last Filed: 02/23/18 17:34> Orders not resulted at time of discharge: Pending orders 02/19/18 11:43 Osmolality,Urine [UCHEM] Routine 02/22/18 09:12 Albumin,Peritoneal Fluid [BF] Routine Cell Cnt w Dif, Peritoneal Fl [BF] Routine Date of Encounter: 02/23/18 - Discharge Diagnosis (1) Bilateral leg weakness Status: Acute (2) Atrial fibrillation with RVR Status: Acute (3) CHF exacerbation Status: Acute Qualifiers: Heart failure type: diastolic Qualified Code(s): I50.33 - Acute on chronic diastolic (congestive) heart failure (4) COPD (chronic obstructive pulmonary disease) Status: Chronic Qualifiers: COPD type: unspecified COPD Qualified Code(s): J44.9 - Chronic obstructive pulmonary disease, unspecified (5) Pressure ulcer of sacrum Status: Chronic Qualifiers: Pressure injury stage: unspecified pressure injury stage Qualified Code(s) : L89.159 - Pressure ulcer of sacral region, unspecified stage (6) HLD (hyperlipidemia) Status: Chronic Qualifiers: Hyperlipidemia type: pure hypercholesterolemia Qualified Code(s): E78.00 - Pure hypercholesterolemia, unspecified; E78.0 - Pure hypercholesterolemia Hospital course: Mr. Munguia is a 67 year old male - Time Spent with Patient Total time spent providing and/or coordinating discharge services: Date of admission: 02/18/18 18:32 Primary care physician: Cedrick Adam DO Consults: 02/18/18 17:31 Consult to Clipper Machine Operator [CONS] Routine Reason for SW Consult: Please assess patient for possible home needs for post -discharge planning. Also assess pt. for counseling r/t current alcohol abuse. 02/18/18 17:32 Consult to Occupational Therapy [CONS] Routine Comment: Evaluate, develop and implement POC Reason for Consult: Patient states that he cannot use his lower extremities d/t weakness for the past 2-3 days. States that he is unable to hold himself up. Please assess patient for strength, stability, safety, and possible home assistive/rehabilitation needs for post-discharge planning. Does patient have active BEDREST order?: Yes Is patient medically & hemodynamically stable?: Yes Patient assessed for mobility or mobilized this visit?: No 02/18/18 17:35 Consult to Physical Therapy [CONS] Routine Comment: Evaluate, develop and implement POC Reason for Consult: Patient states that he cannot use his lower extremities d/t weakness for the past 2-3 days. States that he is unable to hold himself up. Please assess patient for strength, stability, safety, and possible home assistive/rehabilitation needs for post-discharge planning. Does patient have active BEDREST order?: Yes Is patient medically & hemodynamically stable?: Yes Patient assessed for mobility or mobilized this visit?: No 02/18/18 17:54 Consult to Wound Care [CONS] Routine Reason for Consult: Patient has painful wounds present on the coccyx from not being able to ambulate. Please make recommendations for daily wound care. 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 Pt. also has hx of CHF. BNP ordered to assess status before starting NS. Call Completed: Yes 02/18/18 18:02 Consult to Cardiology [CONS] Routine Comment: Consulting Provider: Cardiology Atiya Reason for Consult: Pt. has hx of atrial fibrillation. Now in Afib w/RVR on admission. Pt. previously on Xarelto approx. 2 years ago but stopped d/t rectal bleeding. Only takes baby aspirin daily. Pt. also has chronic hx of hyponatremia, possibly d/t beer potomania r/t daily beer drinking. Nephrology consulted. Echocardiogram ordered. Cardizem 20 mg once. Heparin drip ordered. Call Completed: Yes 02/18/18 18:26 Consult to Nutrition [CONS] Routine Comment: Ensure supplementation d/t alcohol use Consulting Provider: NUTRITION Reason for Dietary Consult: PO Supplementation 02/21/18 17:50 Consult to Orthopedic Surgery [CONS] Routine Consulting Provider: [facility] Reason for Consult: radiculopathy Call Completed: Yes 02/22/18 09:09 Consult to Interventional Radiology [CONS] Routine Consulting Provider: Radiology Interventional Cols Reason for Consult: paracentesis Time Notified: 09:10 Call Completed: Yes - Constitutional Vitals: Temp Pulse Resp BP Pulse Ox 97.8 F 84 16 119/64 100 02/23/18 10:58 02/23/18 10:58 02/23/18 10:58 02/23/18 10:58 02/23/18 10:58 - Attending Attestation I examined this patient and my medical decision-making was reviewed with the Resident Physician Dr. Chaudhari. I agree with the documented findings, disposition and treatment plan as described except to the extent set forth below. Mr. Munguia is a 67 year old male w/PMH of previous [place] in 2004 without stent placement, HTN, HLD, COPD, Diastolic CHF, sciatica, atrial fibrillation, and GERD presents from [facility] ED with chief complaint of bilateral leg weakness for the past 2-3 days. Also reports SOB and uses 2.5L O2 @ home. Reports hx of chronic Afib and was previously on Xarelto but stopped d/t rectal bleeding. Pt. states his bilateral legs are painful and cramping. Pt. also reports drinking beer daily. He still c/o b/l leg pain and weakness, unable to ambulate well. His lower back pain is radiating mainly into Rt leg. His abdomen girth also increased in size. Overall feels better today Gen: A, A, O x 3 Chest : No wheezing, no crackles. diminished BS b/l Heart; S1S2+ afib Abd : distended, fluid thrill +, No guarding, no rigidity a/p 1. Acute b/l LE weakness 2. Moderate spinal stenosis 3. Lumbar radiculoapthy / Rt side sciatica Spine surgery did not recommend any intervention now PT / OT 4. Chronic hypoxic resp failure 5. Hyponatremia due to volume overload improved fluid restriction Cont Lasix 6. 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 Chronic Iron def anemia due to GI bleed need out pt f/u with GI for possible EGD cont Iron supplements Medically stable to d/c home today
== END 2018-02-23 16:07 | disposition home health service (06) | DRG 640 ==
LOC: 2NENU → SUATTDRO 18:32
PROVIDERS: ADMIT Nurse Practitioner Family; ATTEND Hospitalist

== ENCOUNTER 2019-09-28 18:53 | Inpatient (IN) ==
[2019-09-28] MEDS ORDERED: 0.9 % Sodium Chloride 1,000 ML ONE (21:07)
[2019-09-28] MEDS ORDERED: *HR* Dextrose 50 % in Water (Syg) 50 ML SYRINGE IVP ONE (21:14)
[2019-09-28] MEDS ORDERED: 0.9 % Sodium Chloride 1,000 ML IVC ONE (21:14)
[2019-09-28] MEDS ORDERED: Norepinephrine 4 MG in 0.9 % Sodium Chloride 250 ML IVC SCH (21:15)
[2019-09-28 21:22] LABS: ABG Base Excess -7 mEq/L (-2 to 3); ABG HCO3 21 mEq/L (21-27); ABG Oxygen Saturation 94 % (95-98); ABG PCO2 54 mmHg (35-45); ABG PO2 85 mmHg (85-104); ABG TCO2 23 mEq/L (20-26)
[2019-09-28] MEDS ORDERED: Naloxone 0.4 MG/ML INJ IVP PRN ×2 (21:36→21:39)
[2019-09-28] MEDS ORDERED: *HR* Heparin 5,000 UNIT/ML VIAL IVP PRN ×2 (21:39)
[2019-09-28] MEDS ORDERED: *HR* Heparin 5,000 UNIT/ML VIAL IVP ONE (21:39)
[2019-09-28] MEDS ORDERED: *HR* Dextrose 50 % in Water (Syg) 50 ML SYRINGE IVP PRN (22:13)
[2019-09-28] MEDS ORDERED: D5% in Water 1,000 ML IVC PRN (22:13)
[2019-09-28] MEDS ORDERED: Dextrose Gel 15 GM/37.5 ML TUBE PO PRN ×2 (22:13)
[2019-09-28] MEDS: Heparin 25,000 UNIT/250 ML D5W 25,000 UNIT/250 ML IV.SOLN IVC SCH (22:17)
[2019-09-28 22:47] LABS: ABG Base Excess -8 mEq/L (-2 to 3); ABG HCO3 20 mEq/L (21-27); ABG Oxygen Saturation 99 % (95-98); ABG PCO2 53 mmHg (35-45); ABG PO2 156 mmHg (85-104); ABG TCO2 22 mEq/L (20-26)
[2019-09-28 22:48] LABS: INR 1.6; Prothrombin Time 18.7 Seconds (9.4-12.1)
[2019-09-28] MEDS ORDERED: *HR* Atropine Sulfate 1 MG/10 ML SYRINGE IVP ONE (22:49)
[2019-09-28 22:50] LABS: Heparin anti-factor XA UFH > 2.00 IU/mL (0.30-0.70)
[2019-09-28] MEDS ORDERED: *HR* Atropine Sulfate 1 MG/10 ML SYRINGE ONE (22:50)
[2019-09-28] MEDS ORDERED: D5% in Water 1,000 ML IVC ONE (22:50)
[2019-09-28 22:54] LABS: Bilirubin,Urine Negative (Negative); Blood,Urine Negative (Negative); Clarity,Urine Cloudy (Clear); Color,Urine Yellow (Yellow); Glucose,Urine (UA) Normal (Normal); Ketones,Urine Negative (Negative); Leukocyte Esterase,Urine Small (Negative); Nitrite,Urine Negative (Negative); Protein,Urine Negative (Neg-Trace); Specific Gravity,Urine 1.019 (1.010-1.025); Urobilinogen,Urine Normal (Normal)
[2019-09-28 22:55] LABS: Basophils % 0.1 %; Eosinophils # 0.1 K/mcL (0.0-0.6); Eosinophils % 0.6 %; Hematocrit 30.7 % (37.5-50.1); Hemoglobin 10.1 g/dL (12.9-16.9); Immature Granulocytes % 0.4 % (0-4); Lymphocytes % 12.5 %; Mean Corpuscular HGB Conc 32.9 g/dL (31.6-35.5); Mean Corpuscular Hemoglobin 29.9 pg (28.0-33.3); Mean Corpuscular Volume 90.8 fL (83.0-100.0); Mean Platelet Volume 11.3 fL (9.4-12.4); Monocytes # 0.6 K/mcL (0.0-1.3); Monocytes % 7.3 %; Neutrophils # 6.6 K/mcL (1.6-8.9); Platelet Count 181 K/mcL (140-400); Red Blood Count 3.38 M/mcL (4.19-5.50); Segmented Neutrophils % 79.1 %; White Blood Count 8.3 K/mcL (4.3-11.1)
[2019-09-28 22:56] LABS: Bacteria,Urine None Seen per hpf (None-Few); Hyaline Casts,Urine None Seen per lpf (None-Few); Squamous Epithelial Cell,Urine Many per lpf (None-Few)
[2019-09-28 23:03] LABS: Amphetamine Screen,Urine Negative ng/mL (Cutoff=1000); Barbiturate Screen,Urine Negative ng/mL (Cutoff=200); Benzodiazepines Screen,Urine Negative ng/mL (Cutoff=200); Cannabinoid Screen,Urine Negative ng/mL (Cutoff = 50); Cocaine Screen,Urine Negative ng/mL (Cutoff= 300); Opiate Screen,Urine Negative ng/mL (Cutoff=300); Phencyclidine Screen,Urine Negative ng/mL (Cutoff=25)
[2019-09-28 23:06] LABS: Calcium 8.1 mg/dL (8.6-10.3); Potassium 4.7 mEq/L (3.5-5.1)
[2019-09-28 23:07] LABS: Magnesium 1.7 mg/dL (1.6-2.6); Phosphorous 4.2 mg/dL (2.7-4.5)
[2019-09-28 23:09] LABS: Ethanol < 10 mg/dL (Less than 10); Troponin I < 0.03 ng/mL (< 0.04)
[2019-09-29 00:25] LABS: ABG Base Excess -7 mEq/L (-2 to 3); ABG HCO3 17 mEq/L (21-27); ABG Oxygen Saturation 97 % (95-98); ABG PCO2 29 mmHg (35-45); ABG PH 7.38 pH Units (7.32-7.45); ABG PO2 95 mmHg (85-104); ABG TCO2 18 mEq/L (20-26); Blood Gas VT 550 cc
[2019-09-29] MEDS: FentaNYL (PF) 1,000 MCG in 0.9 % Sodium Chloride 80 ML IVC SCH ×2 (00:45→10:45)
[2019-09-29] MEDS ORDERED: Artificial Tears SOLN 15 ML BOTTLE BOTH EYES PRN (01:47)
[2019-09-29] MEDS: Artificial Tears SOLN 15 ML BOTTLE BOTH EYES SCH ×6 (03:39→23:11)
[2019-09-29 03:56] LABS: Basophils % 0.2 %; Eosinophils % 0.1 %; Hematocrit 31.9 % (37.5-50.1); Hemoglobin 10.5 g/dL (12.9-16.9); Immature Granulocytes % 0.4 % (0-4); Lymphocytes # 0.8 K/mcL (0.6-4.6); Mean Corpuscular HGB Conc 32.9 g/dL (31.6-35.5); Mean Corpuscular Hemoglobin 30.3 pg (28.0-33.3); Mean Corpuscular Volume 91.9 fL (83.0-100.0); Monocytes # 0.4 K/mcL (0.0-1.3); Monocytes % 4.2 %; Neutrophils # 9.1 K/mcL (1.6-8.9); Platelet Count 174 K/mcL (140-400); Red Blood Count 3.47 M/mcL (4.19-5.50); Red Cell Distribution Width 15.9 % (11.5-14.5); Segmented Neutrophils % 87.1 %; White Blood Count 10.4 K/mcL (4.3-11.1)
[2019-09-29 04:00] LABS: INR 1.7; Prothrombin Time 19.8 Seconds (9.4-12.1)
[2019-09-29 04:12] LABS: Albumin 3.3 g/dL (3.5-5.7); Albumin/Globulin Ratio 1.2 (1.1-2.2); Bilirubin,Total 0.6 mg/dL (0.3-1.0); Calcium 8.3 mg/dL (8.6-10.3); Globulin 2.7 g/dL (2.4-3.5); Magnesium 1.5 mg/dL (1.6-2.6); Phosphorous 3.4 mg/dL (2.7-4.5); Potassium 4.7 mEq/L (3.5-5.1)
[2019-09-29 05:14] LABS: ABG Base Excess -6 mEq/L (-2 to 3); ABG HCO3 18 mEq/L (21-27); ABG Oxygen Saturation 94 % (95-98); ABG PCO2 29 mmHg (35-45); ABG PO2 70 mmHg (85-104); ABG TCO2 19 mEq/L (20-26); Blood Gas Modality ASSIST CONTROL; Blood Gas VT 550 cc
[2019-09-29] MEDS ORDERED: 0.9 % Sodium Chloride 1,000 ML IVC ONE (06:05)
[2019-09-29] MEDS ORDERED: Perflutren Lipid Microsphere 1.3 ML in 0.9 % Sodium Chloride 8.7 ML IVP ONE (07:24)
[2019-09-29] MEDS ORDERED: Insulin LISPRO 300 UNITS/3 ML VIAL SQ SCH ×2 (07:30→21:00)
[2019-09-29] MEDS: Chlorhexidine Rinse 15 ML MOUTHWASH MM SCH ×2 (08:03→19:48)
[2019-09-29] MEDS ORDERED: Cosyntropin 250 MCG/2 ML VIAL IVP ONE (08:09)
[2019-09-29] MEDS: Folic Acid 1 MG TABLET PO SCH (09:38)
[2019-09-29] MEDS: Multivit/Ca/Min/Fe/FA 1 TAB TABLET PO SCH (09:38)
[2019-09-29] MEDS: Thiamine (B-1) 100 MG TABLET PO SCH (09:38)
[2019-09-29 09:42] LABS: Albumin 3.2 g/dL (3.5-5.7); Albumin/Globulin Ratio 1.3 (1.1-2.2); Bilirubin,Direct 0.3 mg/dL (0.0-0.2); Bilirubin,Indirect 0.4 mg/dL (0.0-1.0); Bilirubin,Total 0.7 mg/dL (0.3-1.0); Globulin 2.4 g/dL (2.4-3.5); Total Protein 5.6 g/dL (6.4-8.9)
[2019-09-29] MEDS ORDERED: Norepinephrine 4 MG in 0.9 % Sodium Chloride 250 ML IVC SCH (11:00)
[2019-09-29] MEDS: Heparin 25,000 UNIT/250 ML D5W 25,000 UNIT/250 ML IV.SOLN IVC SCH (11:25)
[2019-09-29 13:06] LABS: Magnesium 1.8 mg/dL (1.6-2.6)
[2019-09-29 13:13] LABS: Thyroid Stimulating Hormone 0.879 mcIU/mL (0.340-5.600)
[2019-09-29] MEDS ORDERED: Vancomycin 1 EACH in 0.9 % Sodium Chloride 250 ML IVPB PRN (14:00)
[2019-09-29] MEDS: Piperacillin/Tazobactam 3.375 GM in 0.9 % Sodium Chloride Mini Bag 100 ML IVPB SCH (14:23)
[2019-09-29] MEDS: Norepinephrine 8 MG in 0.9 % Sodium Chloride 500 ML IVC SCH (17:55)
[2019-09-29] MEDS: Ipratropium/Albuterol Neb 3 ML IH PRN ×2 (19:25→23:53)
[2019-09-29] MEDS ORDERED: MethylPREDNISolone 40 MG/ML VIAL IVP ONE (20:02)
[2019-09-30] MEDS: FentaNYL (PF) 1,000 MCG in 0.9 % Sodium Chloride 80 ML IVC SCH ×2 (01:22→15:30)
[2019-09-30] MEDS: Piperacillin/Tazobactam 3.375 GM in 0.9 % Sodium Chloride Mini Bag 100 ML IVPB SCH ×3 (01:29→22:44)
[2019-09-30] MEDS: Artificial Tears SOLN 15 ML BOTTLE BOTH EYES SCH ×5 (03:15→19:34)
[2019-09-30 03:16] LABS: Basophils % 0.1 %; Hematocrit 35.6 % (37.5-50.1); Hemoglobin 11.8 g/dL (12.9-16.9); Immature Granulocytes % 0.2 % (0-4); Lymphocytes # 0.2 K/mcL (0.6-4.6); Mean Corpuscular HGB Conc 33.1 g/dL (31.6-35.5); Mean Corpuscular Hemoglobin 30.2 pg (28.0-33.3); Mean Platelet Volume 11.3 fL (9.4-12.4); Monocytes # 0.1 K/mcL (0.0-1.3); Monocytes % 0.5 %; Neutrophils # 16.3 K/mcL (1.6-8.9); Platelet Count 203 K/mcL (140-400); Red Blood Count 3.91 M/mcL (4.19-5.50); Red Cell Distribution Width 16.1 % (11.5-14.5); Segmented Neutrophils % 98.2 %
[2019-09-30 03:20] LABS: White Blood Count 16.6 K/mcL (4.3-11.1)
[2019-09-30 03:34] LABS: Calcium 8.5 mg/dL (8.6-10.3)
[2019-09-30 03:51] LABS: Platelet Estimate Normal (Normal)
[2019-09-30 04:35] LABS: ABG Base Excess -9 mEq/L (-2 to 3); ABG HCO3 18 mEq/L (21-27); ABG Oxygen Saturation 97 % (95-98); ABG PCO2 40 mmHg (35-45); ABG PH 7.25 pH Units (7.32-7.45); ABG PO2 102 mmHg (85-104); ABG TCO2 19 mEq/L (20-26); Blood Gas Modality AF; Blood Gas VT 550 cc
[2019-09-30] MEDS: Heparin 25,000 UNIT/250 ML D5W 25,000 UNIT/250 ML IV.SOLN IVC SCH (06:20)
[2019-09-30] MEDS: Thiamine (B-1) 100 MG TABLET PO SCH (08:55)
[2019-09-30] MEDS: Multivit/Ca/Min/Fe/FA 1 TAB TABLET PO SCH (08:55)
[2019-09-30] MEDS: Chlorhexidine Rinse 15 ML MOUTHWASH MM SCH ×2 (08:55→19:34)
[2019-09-30] MEDS: Folic Acid 1 MG TABLET PO SCH (08:55)
[2019-09-30] MEDS: Norepinephrine 8 MG in 0.9 % Sodium Chloride 500 ML IVC SCH (16:12)
[2019-09-30] MEDS: Apixaban 5 MG TABLET PO SCH (19:34)
[2019-10-01] MEDS: Artificial Tears SOLN 15 ML BOTTLE BOTH EYES SCH ×7 (00:35→23:27)
[2019-10-01] MEDS: FentaNYL (PF) 1,000 MCG in 0.9 % Sodium Chloride 80 ML IVC SCH ×2 (02:09→13:30)
[2019-10-01 04:58] LABS: ABG Base Excess -3 mEq/L (-2 to 3); ABG HCO3 20 mEq/L (21-27); ABG Oxygen Saturation 99 % (95-98); ABG PCO2 29 mmHg (35-45); ABG PH 7.45 pH Units (7.32-7.45); ABG PO2 149 mmHg (85-104); ABG TCO2 21 mEq/L (20-26); Blood Gas Modality AF; Blood Gas VT 550 cc
[2019-10-01 04:59] LABS: Basophils % 0.1 %; Hematocrit 30.7 % (37.5-50.1); Hemoglobin 10.8 g/dL (12.9-16.9); Immature Granulocytes % 0.5 % (0-4); Lymphocytes # 0.5 K/mcL (0.6-4.6); Lymphocytes % 3.6 %; Mean Corpuscular HGB Conc 35.2 g/dL (31.6-35.5); Mean Corpuscular Volume 85.3 fL (83.0-100.0); Mean Platelet Volume 11.8 fL (9.4-12.4); Monocytes # 0.6 K/mcL (0.0-1.3); Monocytes % 4.1 %; Neutrophils # 13.2 K/mcL (1.6-8.9); Platelet Count 191 K/mcL (140-400); Red Cell Distribution Width 16.9 % (11.5-14.5); Segmented Neutrophils % 91.7 %; White Blood Count 14.4 K/mcL (4.3-11.1)
[2019-10-01 05:20] LABS: Vancomycin,Random 14 mcg/mL
[2019-10-01] MEDS: Piperacillin/Tazobactam 3.375 GM in 0.9 % Sodium Chloride Mini Bag 100 ML IVPB SCH (05:25)
[2019-10-01 07:07] LABS: BUN/Creatinine Ratio 28 (6-26); Blood Urea Nitrogen 35 mg/dL (8-23); Calcium 8.5 mg/dL (8.6-10.3); Carbon Dioxide 19 mEq/L (23-29); Chloride 99 mEq/L (98-107); Glucose 108 mg/dL (70-105); Magnesium 2.3 mg/dL (1.6-2.6); Osmolality,Calculated 275 (280-300); Phosphorous 4.2 mg/dL (2.7-4.5); Potassium 5.5 mEq/L (3.5-5.1); Sodium 128 mEq/L (136-145); eGFR For African Americans > 60 (> 60); eGFR For Non-African Americans 57 (> 60)
[2019-10-01] MEDS: Chlorhexidine Rinse 15 ML MOUTHWASH MM SCH ×2 (07:55→19:57)
[2019-10-01] MEDS: Thiamine (B-1) 100 MG TABLET PO SCH (07:56)
[2019-10-01] MEDS: Folic Acid 1 MG TABLET PO SCH (07:56)
[2019-10-01] MEDS: Multivit/Ca/Min/Fe/FA 1 TAB TABLET PO SCH (07:56)
[2019-10-01] MEDS: Apixaban 5 MG TABLET PO SCH (07:56)
[2019-10-01] MEDS ORDERED: cloNIDine HCl 0.1 MG TABLET GTUBE ONE (08:31)
[2019-10-01] MEDS ORDERED: Aminoglycoside Consult 1 EACH MC ONE (08:55)
[2019-10-01] MEDS: Doxycycline 100 MG in 0.9 % Sodium Chloride Mini Bag 100 ML IVPB SCH ×2 (09:15→19:57)
[2019-10-01] MEDS: Pantoprazole 40 MG VIAL IVP SCH (09:16)
[2019-10-01] MEDS: Valsartan 80 MG TABLET GTUBE SCH ×2 (09:26→19:58)
[2019-10-01] MEDS ORDERED: *HR* Midazolam HCl 5 MG/5 ML VIAL IVP ONE ×2 (09:35→15:06)
[2019-10-01] MEDS ORDERED: *HR* Etomidate 20 MG/10 ML AMPUL IVP ONE (09:35)
[2019-10-01] MEDS: cefTRIAXone 2,000 MG in Water for inj. (sterile) 20 ML IVP SCH (13:58)
[2019-10-01] MEDS ORDERED: cloNIDine HCl 0.1 MG TABLET PO SCH (15:00)
[2019-10-01] MEDS ORDERED: *HR* Midazolam HCl 2 MG/2 ML VIAL IVP PRN (15:03)
[2019-10-01] MEDS: Norepinephrine 8 MG in 0.9 % Sodium Chloride 500 ML IVC SCH (15:58)
[2019-10-01] MEDS: Ipratropium/Albuterol Neb 3 ML IH PRN (19:31)
[2019-10-01] MEDS: Apixaban 5 MG TABLET GTUBE SCH (19:58)
[2019-10-01] MEDS: *HR* Midazolam HCl 2 MG/2 ML VIAL IVP PRN (21:17)
[2019-10-02] MEDS: Artificial Tears SOLN 15 ML BOTTLE BOTH EYES SCH ×6 (03:57→23:17)
[2019-10-02 04:16] LABS: ABG Base Excess -2 mEq/L (-2 to 3); ABG HCO3 24 mEq/L (21-27); ABG Oxygen Saturation 98 % (95-98); ABG PCO2 43 mmHg (35-45); ABG PH 7.35 pH Units (7.32-7.45); ABG PO2 117 mmHg (85-104); ABG TCO2 25 mEq/L (20-26); Blood Gas VT 500 cc
[2019-10-02 04:17] LABS: Basophils % 0.2 %; Eosinophils # 0.3 K/mcL (0.0-0.6); Eosinophils % 2.9 %; Hematocrit 29.7 % (37.5-50.1); Hemoglobin 10.2 g/dL (12.9-16.9); Immature Granulocytes % 0.3 % (0-4); Lymphocytes # 1.5 K/mcL (0.6-4.6); Lymphocytes % 14.2 %; Mean Corpuscular HGB Conc 34.3 g/dL (31.6-35.5); Mean Corpuscular Hemoglobin 30.3 pg (28.0-33.3); Mean Corpuscular Volume 88.1 fL (83.0-100.0); Mean Platelet Volume 11.9 fL (9.4-12.4); Monocytes # 0.5 K/mcL (0.0-1.3); Monocytes % 4.6 %; Neutrophils # 8.5 K/mcL (1.6-8.9); Nucleated Red Blood Cells 0.2 /100 WBC (0); Platelet Count 183 K/mcL (140-400); Red Blood Count 3.37 M/mcL (4.19-5.50); Red Cell Distribution Width 17.2 % (11.5-14.5); Segmented Neutrophils % 77.8 %; White Blood Count 10.9 K/mcL (4.3-11.1)
[2019-10-02 04:31] LABS: BUN/Creatinine Ratio 26 (6-26); Blood Urea Nitrogen 26 mg/dL (8-23); Calcium 8.6 mg/dL (8.6-10.3); Carbon Dioxide 22 mEq/L (23-29); Chloride 102 mEq/L (98-107); Glucose 80 mg/dL (70-105); Osmolality,Calculated 280 (280-300); Phosphorous 4.6 mg/dL (2.7-4.5); Potassium 5.1 mEq/L (3.5-5.1); Sodium 133 mEq/L (136-145); eGFR For African Americans > 60 (> 60); eGFR For Non-African Americans > 60 (> 60)
[2019-10-02] MEDS: FentaNYL (PF) 1,000 MCG in 0.9 % Sodium Chloride 80 ML IVC SCH (04:32)
[2019-10-02] MEDS ORDERED: Furosemide 40 MG/4 ML VIAL IVP ONE (06:59)
[2019-10-02] MEDS: Doxycycline 100 MG in 0.9 % Sodium Chloride Mini Bag 100 ML IVPB SCH ×2 (08:47→20:08)
[2019-10-02] MEDS: Pantoprazole 40 MG VIAL IVP SCH (08:47)
[2019-10-02] MEDS: Multivit/Ca/Min/Fe/FA 1 TAB TABLET GTUBE SCH (08:59)
[2019-10-02] MEDS: Thiamine (B-1) 100 MG TABLET GTUBE SCH (08:59)
[2019-10-02] MEDS: Apixaban 5 MG TABLET GTUBE SCH ×2 (09:00→20:08)
[2019-10-02] MEDS: Valsartan 80 MG TABLET GTUBE SCH ×2 (09:00→20:09)
[2019-10-02] MEDS: Chlorhexidine Rinse 15 ML MOUTHWASH MM SCH ×2 (09:00→20:08)
[2019-10-02] MEDS: Folic Acid 1 MG TABLET GTUBE SCH (09:00)
[2019-10-02] MEDS ORDERED: hydrALAZINE 10 MG TABLET PO PRN (11:35)
[2019-10-02] MEDS: cefTRIAXone 2,000 MG in Water for inj. (sterile) 20 ML IVP SCH (16:11)
[2019-10-02] MEDS: *HR* Midazolam HCl 2 MG/2 ML VIAL IVP PRN ×2 (20:23→22:46)
[2019-10-03] MEDS: Artificial Tears SOLN 15 ML BOTTLE BOTH EYES SCH ×5 (03:44→20:23)
[2019-10-03 03:47] LABS: Basophils # 0.1 K/mcL (0.0-0.2); Basophils % 0.8 %; Eosinophils # 0.6 K/mcL (0.0-0.6); Eosinophils % 6.4 %; Hematocrit 31.4 % (37.5-50.1); Hemoglobin 10.3 g/dL (12.9-16.9); Immature Granulocytes % 0.4 % (0-4); Lymphocytes # 1.7 K/mcL (0.6-4.6); Lymphocytes % 18.7 %; Mean Corpuscular HGB Conc 32.8 g/dL (31.6-35.5); Mean Corpuscular Hemoglobin 30.2 pg (28.0-33.3); Mean Corpuscular Volume 92.1 fL (83.0-100.0); Mean Platelet Volume 11.3 fL (9.4-12.4); Monocytes # 0.5 K/mcL (0.0-1.3); Monocytes % 5.5 %; Neutrophils # 6.2 K/mcL (1.6-8.9); Nucleated Red Blood Cells 0.8 /100 WBC (0); Platelet Count 181 K/mcL (140-400); Red Blood Count 3.41 M/mcL (4.19-5.50); Red Cell Distribution Width 17.7 % (11.5-14.5); Segmented Neutrophils % 68.2 %; White Blood Count 9.1 K/mcL (4.3-11.1)
[2019-10-03 04:10] LABS: BUN/Creatinine Ratio 22 (6-26); Blood Urea Nitrogen 19 mg/dL (8-23); Calcium 8.8 mg/dL (8.6-10.3); Carbon Dioxide 25 mEq/L (23-29); Chloride 105 mEq/L (98-107); Glucose 79 mg/dL (70-105); Magnesium 1.5 mg/dL (1.6-2.6); Osmolality,Calculated 287 (280-300); Potassium 4.5 mEq/L (3.5-5.1); Sodium 138 mEq/L (136-145); eGFR For African Americans > 60 (> 60); eGFR For Non-African Americans > 60 (> 60)
[2019-10-03 04:50] LABS: ABG Base Excess 1 mEq/L (-2 to 3); ABG HCO3 25 mEq/L (21-27); ABG Oxygen Saturation 99 % (95-98); ABG PCO2 37 mmHg (35-45); ABG PH 7.44 pH Units (7.32-7.45); ABG PO2 122 mmHg (85-104); ABG TCO2 26 mEq/L (20-26); Blood Gas VT 500 cc
[2019-10-03] MEDS: Valsartan 80 MG TABLET GTUBE SCH ×2 (07:40→20:23)
[2019-10-03] MEDS: Chlorhexidine Rinse 15 ML MOUTHWASH MM SCH ×2 (07:40→20:22)
[2019-10-03] MEDS: Thiamine (B-1) 100 MG TABLET GTUBE SCH (07:40)
[2019-10-03] MEDS: Pantoprazole 40 MG VIAL IVP SCH (07:40)
[2019-10-03] MEDS: Folic Acid 1 MG TABLET GTUBE SCH (07:40)
[2019-10-03] MEDS: Apixaban 5 MG TABLET GTUBE SCH ×2 (07:40→20:23)
[2019-10-03] MEDS: Multivit/Ca/Min/Fe/FA 1 TAB TABLET GTUBE SCH (07:40)
[2019-10-03] MEDS: Doxycycline 100 MG in 0.9 % Sodium Chloride Mini Bag 100 ML IVPB SCH ×2 (07:41→20:23)
[2019-10-03] MEDS: cefTRIAXone 2,000 MG in Water for inj. (sterile) 20 ML IVP SCH (14:02)
[2019-10-03] MEDS: Sennosides 8.6 MG TABLET PO SCH (14:03)
[2019-10-04] MEDS: Artificial Tears SOLN 15 ML BOTTLE BOTH EYES SCH ×7 (00:25→23:33)
[2019-10-04] MEDS: *HR* Midazolam HCl 2 MG/2 ML VIAL IVP PRN (02:48)
[2019-10-04 03:36] LABS: Basophils # 0.1 K/mcL (0.0-0.2); Basophils % 0.6 %; Eosinophils % 12.1 %; Hemoglobin 11.2 g/dL (12.9-16.9); Immature Granulocytes % 0.3 % (0-4); Lymphocytes # 1.7 K/mcL (0.6-4.6); Mean Corpuscular Hemoglobin 29.4 pg (28.0-33.3); Mean Corpuscular Volume 91.9 fL (83.0-100.0); Mean Platelet Volume 11.4 fL (9.4-12.4); Monocytes # 0.7 K/mcL (0.0-1.3); Monocytes % 9.4 %; Neutrophils # 4.4 K/mcL (1.6-8.9); Nucleated Red Blood Cells 1.5 /100 WBC (0); Platelet Count 212 K/mcL (140-400); Red Blood Count 3.81 M/mcL (4.19-5.50); Red Cell Distribution Width 17.5 % (11.5-14.5); Segmented Neutrophils % 55.6 %; White Blood Count 7.9 K/mcL (4.3-11.1)
[2019-10-04 04:04] LABS: BUN/Creatinine Ratio 26 (6-26); Blood Urea Nitrogen 19 mg/dL (8-23); Calcium 8.9 mg/dL (8.6-10.3); Carbon Dioxide 27 mEq/L (23-29); Chloride 103 mEq/L (98-107); Glucose 76 mg/dL (70-105); Osmolality,Calculated 287 (280-300); Potassium 4.6 mEq/L (3.5-5.1); Sodium 138 mEq/L (136-145); eGFR For African Americans > 60 (> 60); eGFR For Non-African Americans > 60 (> 60)
[2019-10-04 04:57] LABS: ABG Base Excess 3 mEq/L (-2 to 3); ABG HCO3 30 mEq/L (21-27); ABG Oxygen Saturation 98 % (95-98); ABG PCO2 54 mmHg (35-45); ABG PH 7.35 pH Units (7.32-7.45); ABG PO2 114 mmHg (85-104); ABG TCO2 31 mEq/L (20-26); Blood Gas VT 500 cc
[2019-10-04] MEDS: Chlorhexidine Rinse 15 ML MOUTHWASH MM SCH ×2 (08:08→19:26)
[2019-10-04] MEDS: Sennosides 8.6 MG TABLET PO SCH (08:08)
[2019-10-04] MEDS: Folic Acid 1 MG TABLET GTUBE SCH (08:08)
[2019-10-04] MEDS: Pantoprazole 40 MG VIAL IVP SCH (08:08)
[2019-10-04] MEDS: Thiamine (B-1) 100 MG TABLET GTUBE SCH (08:08)
[2019-10-04] MEDS: Valsartan 80 MG TABLET GTUBE SCH ×2 (08:08→19:27)
[2019-10-04] MEDS: Apixaban 5 MG TABLET GTUBE SCH ×2 (08:10→19:27)
[2019-10-04] MEDS: Doxycycline 100 MG in 0.9 % Sodium Chloride Mini Bag 100 ML IVPB SCH ×2 (08:11→19:27)
[2019-10-04] MEDS: Multivit/Ca/Min/Fe/FA 1 TAB TABLET GTUBE SCH (08:13)
[2019-10-04] MEDS: *HR* Metoprolol 5 MG/5 ML VIAL IVP SCH ×4 (12:08→23:32)
[2019-10-04] MEDS: cefTRIAXone 2,000 MG in Water for inj. (sterile) 20 ML IVP SCH (14:26)
[2019-10-04] MEDS: FentaNYL (PF) 1,000 MCG in 0.9 % Sodium Chloride 80 ML IVC SCH (19:29)
[2019-10-05] MEDS: *HR* Metoprolol 5 MG/5 ML VIAL IVP SCH ×5 (03:36→20:56)
[2019-10-05] MEDS: Artificial Tears SOLN 15 ML BOTTLE BOTH EYES SCH ×2 (03:36→07:46)
[2019-10-05 04:37] LABS: Basophils % 0.4 %; Eosinophils # 1.1 K/mcL (0.0-0.6); Eosinophils % 11.9 %; Hematocrit 36.5 % (37.5-50.1); Hemoglobin 11.8 g/dL (12.9-16.9); Immature Granulocytes % 0.3 % (0-4); Lymphocytes # 1.3 K/mcL (0.6-4.6); Lymphocytes % 14.1 %; Mean Corpuscular HGB Conc 32.3 g/dL (31.6-35.5); Mean Corpuscular Hemoglobin 29.6 pg (28.0-33.3); Mean Corpuscular Volume 91.5 fL (83.0-100.0); Mean Platelet Volume 11.3 fL (9.4-12.4); Monocytes # 0.8 K/mcL (0.0-1.3); Monocytes % 9.1 %; Platelet Count 206 K/mcL (140-400); Red Blood Count 3.99 M/mcL (4.19-5.50); Red Cell Distribution Width 17.3 % (11.5-14.5); Segmented Neutrophils % 64.2 %; White Blood Count 9.3 K/mcL (4.3-11.1)
[2019-10-05 05:04] LABS: ABG Base Excess 5 mEq/L (-2 to 3); ABG HCO3 30 mEq/L (21-27); ABG Oxygen Saturation 99 % (95-98); ABG PCO2 44 mmHg (35-45); ABG PH 7.44 pH Units (7.32-7.45); ABG PO2 133 mmHg (85-104); ABG TCO2 31 mEq/L (20-26); Blood Gas Modality AF; Blood Gas VT 500 cc
[2019-10-05] MEDS ORDERED: Scopolamine Patch 1.5 MG PATCH.TD72 TD ONE (05:05)
[2019-10-05] MEDS: hydrALAZINE 10 MG TABLET GTUBE PRN (05:20)
[2019-10-05] MEDS: Chlorhexidine Rinse 15 ML MOUTHWASH MM SCH (07:44)
[2019-10-05] MEDS: Doxycycline 100 MG in 0.9 % Sodium Chloride Mini Bag 100 ML IVPB SCH (07:45)
[2019-10-05] MEDS: Multivit/Ca/Min/Fe/FA 1 TAB TABLET GTUBE SCH (07:45)
[2019-10-05] MEDS: Thiamine (B-1) 100 MG TABLET GTUBE SCH (07:45)
[2019-10-05] MEDS: Apixaban 5 MG TABLET GTUBE SCH ×2 (07:45→20:56)
[2019-10-05] MEDS: Valsartan 80 MG TABLET GTUBE SCH ×2 (07:45→20:56)
[2019-10-05] MEDS: Pantoprazole 40 MG VIAL IVP SCH (07:45)
[2019-10-05] MEDS: Folic Acid 1 MG TABLET GTUBE SCH (07:46)
[2019-10-05] MEDS ORDERED: *HR* Metoprolol 5 MG/5 ML VIAL IVP ONE (16:28)
[2019-10-05] MEDS: Lactulose Oral Soln 20 GM/30 ML UDC PO SCH (20:56)
[2019-10-06] MEDS: *HR* Metoprolol 5 MG/5 ML VIAL IVP SCH ×3 (00:13→07:58)
[2019-10-06] MEDS: hydrALAZINE 10 MG TABLET GTUBE PRN (06:22)
[2019-10-06 07:40] LABS: Basophils % 0.4 %; Eosinophils # 1.1 K/mcL (0.0-0.6); Eosinophils % 9.6 %; Hematocrit 38.6 % (37.5-50.1); Hemoglobin 12.6 g/dL (12.9-16.9); Immature Granulocytes % 0.5 % (0-4); Lymphocytes # 1.6 K/mcL (0.6-4.6); Mean Corpuscular HGB Conc 32.6 g/dL (31.6-35.5); Mean Corpuscular Hemoglobin 29.4 pg (28.0-33.3); Mean Corpuscular Volume 90.2 fL (83.0-100.0); Mean Platelet Volume 11.5 fL (9.4-12.4); Monocytes % 9.2 %; Neutrophils # 7.2 K/mcL (1.6-8.9); Nucleated Red Blood Cells 0.3 /100 WBC (0); Platelet Count 235 K/mcL (140-400); Red Blood Count 4.28 M/mcL (4.19-5.50); Segmented Neutrophils % 65.3 %
[2019-10-06 07:54] LABS: BUN/Creatinine Ratio 21 (6-26); Blood Urea Nitrogen 12 mg/dL (8-23); Calcium 9.2 mg/dL (8.6-10.3); Carbon Dioxide 26 mEq/L (23-29); Chloride 103 mEq/L (98-107); Glucose 90 mg/dL (70-105); Osmolality,Calculated 281 (280-300); Potassium 4.5 mEq/L (3.5-5.1); Sodium 136 mEq/L (136-145); eGFR For African Americans > 60 (> 60); eGFR For Non-African Americans > 60 (> 60)
[2019-10-06] MEDS: Lactulose Oral Soln 20 GM/30 ML UDC PO SCH ×2 (07:57→20:36)
[2019-10-06] MEDS: Pantoprazole 40 MG VIAL IVP SCH (07:58)
[2019-10-06] MEDS: Apixaban 5 MG TABLET GTUBE SCH (07:58)
[2019-10-06] MEDS: Thiamine (B-1) 100 MG TABLET GTUBE SCH (07:58)
[2019-10-06] MEDS: Multivit/Ca/Min/Fe/FA 1 TAB TABLET GTUBE SCH (07:58)
[2019-10-06] MEDS: Valsartan 80 MG TABLET GTUBE SCH (07:58)
[2019-10-06] MEDS: Folic Acid 1 MG TABLET GTUBE SCH (07:58)
[2019-10-06] MEDS ORDERED: Naloxone 0.4 MG/ML INJ IVP PRN (09:34)
[2019-10-06] MEDS ORDERED: hydrALAZINE 10 MG TABLET PO PRN (09:34)
[2019-10-06] MEDS ORDERED: Dextrose Gel 15 GM/37.5 ML TUBE PO PRN ×2 (09:34)
[2019-10-06] MEDS ORDERED: *HR* Dextrose 50 % in Water (Syg) 50 ML SYRINGE IVP PRN (09:34)
[2019-10-06] MEDS ORDERED: D5% in Water 1,000 ML IVC PRN (09:34)
[2019-10-06] MEDS: Valsartan 80 MG TABLET PO SCH (20:35)
[2019-10-06] MEDS: Apixaban 5 MG TABLET PO SCH (20:35)
[2019-10-06] MEDS: Ipratropium/Albuterol Neb 3 ML IH PRN (21:52)
[2019-10-07 03:43] LABS: ABG Base Excess 2 mEq/L (-2 to 3); ABG HCO3 26 mEq/L (21-27); ABG Oxygen Saturation 96 % (95-98); ABG PCO2 40 mmHg (35-45); ABG PH 7.42 pH Units (7.32-7.45); ABG PO2 80 mmHg (85-104); ABG TCO2 28 mEq/L (20-26)
[2019-10-07 07:55] LABS: BUN/Creatinine Ratio 20 (6-26); Blood Urea Nitrogen 12 mg/dL (8-23); Calcium 9.2 mg/dL (8.6-10.3); Carbon Dioxide 24 mEq/L (23-29); Chloride 101 mEq/L (98-107); Glucose 97 mg/dL (70-105); Osmolality,Calculated 282 (280-300); Potassium 3.7 mEq/L (3.5-5.1); Sodium 136 mEq/L (136-145); eGFR For African Americans > 60 (> 60); eGFR For Non-African Americans > 60 (> 60)
[2019-10-07] MEDS: Folic Acid 1 MG TABLET PO SCH (08:54)
[2019-10-07] MEDS: Apixaban 5 MG TABLET PO SCH ×2 (08:54→20:44)
[2019-10-07] MEDS: Thiamine (B-1) 100 MG TABLET PO SCH (08:54)
[2019-10-07] MEDS: Multivit/Ca/Min/Fe/FA 1 TAB TABLET PO SCH (08:55)
[2019-10-07] MEDS: Lactulose Oral Soln 20 GM/30 ML UDC PO SCH ×2 (08:55→20:44)
[2019-10-07] MEDS: Valsartan 80 MG TABLET PO SCH ×2 (08:55→20:44)
[2019-10-07] MEDS ORDERED: Pantoprazole 40 MG VIAL IVP SCH (09:00)
[2019-10-07] MEDS: Ipratropium/Albuterol Neb 3 ML IH PRN (10:17)
[2019-10-07] MEDS ORDERED: Lactulose Oral Soln 20 GM/30 ML UDC PO ONE (11:55)
[2019-10-07] MEDS ORDERED: Lactulose 200 GM, Sodium Chloride IRRigation 700 ML RC PRN (14:14)
[2019-10-08] MEDS: Thiamine (B-1) 100 MG TABLET PO SCH (09:26)
[2019-10-08] MEDS: Folic Acid 1 MG TABLET PO SCH (09:26)
[2019-10-08] MEDS: Apixaban 5 MG TABLET PO SCH ×2 (09:26→20:09)
[2019-10-08] MEDS: Valsartan 80 MG TABLET PO SCH ×2 (09:27→20:09)
[2019-10-08] MEDS: Multivit/Ca/Min/Fe/FA 1 TAB TABLET PO SCH (09:27)
[2019-10-08] MEDS: Lactulose Oral Soln 20 GM/30 ML UDC PO SCH ×2 (09:27→20:09)
[2019-10-08] MEDS: DilTIAZem CD (24hr) 120 MG CAP.ER.24H PO SCH (12:19)
[2019-10-08] MEDS: Furosemide 20 MG TABLET PO SCH (12:19)
[2019-10-09] MEDS: DilTIAZem CD (24hr) 120 MG CAP.ER.24H PO SCH (09:01)
[2019-10-09] MEDS: Thiamine (B-1) 100 MG TABLET PO SCH (09:01)
[2019-10-09] MEDS: Multivit/Ca/Min/Fe/FA 1 TAB TABLET PO SCH (09:01)
[2019-10-09] MEDS: Folic Acid 1 MG TABLET PO SCH (09:01)
[2019-10-09] MEDS: Furosemide 20 MG TABLET PO SCH (09:01)
[2019-10-09] MEDS: Lactulose Oral Soln 20 GM/30 ML UDC PO SCH ×2 (09:02→20:12)
[2019-10-09] MEDS: Apixaban 5 MG TABLET PO SCH ×2 (09:02→20:12)
[2019-10-09] MEDS: Valsartan 80 MG TABLET PO SCH ×2 (09:02→20:12)
[2019-10-09] MEDS: Gabapentin 300 MG CAPSULE PO SCH ×4 (10:37→20:52)
[2019-10-10] MEDS: Lactulose Oral Soln 20 GM/30 ML UDC PO SCH (08:52)
[2019-10-10] MEDS: DilTIAZem CD (24hr) 120 MG CAP.ER.24H PO SCH (08:53)
[2019-10-10] MEDS: Valsartan 80 MG TABLET PO SCH (08:53)
[2019-10-10] MEDS: Furosemide 20 MG TABLET PO SCH (08:53)
[2019-10-10] MEDS: Thiamine (B-1) 100 MG TABLET PO SCH (08:53)
[2019-10-10] MEDS: Gabapentin 300 MG CAPSULE PO SCH ×2 (08:53→15:31)
[2019-10-10] MEDS: Folic Acid 1 MG TABLET PO SCH (08:53)
[2019-10-10] MEDS: Multivit/Ca/Min/Fe/FA 1 TAB TABLET PO SCH (08:53)
[2019-10-10] MEDS: Apixaban 5 MG TABLET PO SCH (08:53)
[2019-10-10 14:50] VITALS: BP 118/74
== END 2019-10-10 16:14 | DRG 917 ==
LOC: ICNU 20:57 → SUATTDRO 20:57 → 2ANU 10-06 12:10
PROVIDERS: ADMIT Pharmacist; ATTEND Family Medicine

== ENCOUNTER 2019-10-21 21:24 | Inpatient (IN) ==
[2019-10-21] MEDS ORDERED: Naloxone 0.4 MG/ML INJ IVP PRN (23:19)
[2019-10-21] MEDS ORDERED: Ondansetron 4 MG/2 ML VIAL IVP PRN (23:19)
[2019-10-21] MEDS ORDERED: Ringers Solution, Lactated 1,000 ML IVC SCH (23:30)
[2019-10-22] MEDS: MethylPREDNISolone 40 MG/ML VIAL IVP SCH ×3 (00:04→23:17)
[2019-10-22] MEDS: Ipratropium/Albuterol Neb 3 ML IH SCH ×4 (00:18→10:25)
[2019-10-22 03:02] LABS: Adenovirus Not Detected (Not Detect); Bordetella Pertussis Not Detected (Not Detect); Chlamydophila pneumoniae Not Detected (Not Detect); Coronavirus 229E Not Detected (Not Detect); Coronavirus HKU1 Not Detected (Not Detect); Coronavirus NL63 Not Detected (Not Detect); Coronavirus OC43 Not Detected (Not Detect); Human Metapneumovirus Not Detected (Not Detect); Human Rhinovirus/Enterovirus Not Detected (Not Detect); Influenza A Subtype 2009 H1 Not Detected (Not Detect); Influenza B Not Detected (Not Detect); Mycoplasma pneumoniae Not Detected (Not Detect); Parainfluenza Virus 1 Not Detected (Not Detect); Parainfluenza Virus 2 Not Detected (Not Detect); Parainfluenza Virus 3 Not Detected (Not Detect); Parainfluenza Virus 4 Not Detected (Not Detect); Respiratory Syncytial Virus Not Detected (Not Detect)
[2019-10-22 05:27] LABS: Basophils % 0.2 %; Eosinophils % 0.1 %; Hematocrit 33.4 % (37.5-50.1); Hemoglobin 10.6 g/dL (12.9-16.9); Immature Granulocytes % 0.4 % (0-4); Lymphocytes # 0.7 K/mcL (0.6-4.6); Lymphocytes % 4.2 %; Mean Corpuscular HGB Conc 31.7 g/dL (31.6-35.5); Mean Corpuscular Hemoglobin 30.1 pg (28.0-33.3); Mean Corpuscular Volume 94.9 fL (83.0-100.0); Mean Platelet Volume 11.3 fL (9.4-12.4); Monocytes # 0.2 K/mcL (0.0-1.3); Monocytes % 1.3 %; Platelet Count 343 K/mcL (140-400); Red Blood Count 3.52 M/mcL (4.19-5.50); Red Cell Distribution Width 18.2 % (11.5-14.5); Segmented Neutrophils % 93.8 %; White Blood Count 17.1 K/mcL (4.3-11.1)
[2019-10-22 05:48] LABS: BUN/Creatinine Ratio 21 (6-26); Blood Urea Nitrogen 23 mg/dL (8-23); Calcium 8.9 mg/dL (8.6-10.3); Carbon Dioxide 25 mEq/L (23-29); Chloride 106 mEq/L (98-107); Glucose 128 mg/dL (70-105); Osmolality,Calculated 293 (280-300); Potassium 4.9 mEq/L (3.5-5.1); Sodium 139 mEq/L (136-145); eGFR For African Americans > 60 (> 60); eGFR For Non-African Americans > 60 (> 60)
[2019-10-22] MEDS: levoFLOXacin 750 MG/150 ML 750 MG/150 ML BAG IVPB SCH (07:44)
[2019-10-22] MEDS: Apixaban 5 MG TABLET PO SCH ×2 (07:44→20:39)
[2019-10-22] MEDS ORDERED: Ipratropium/Albuterol Neb 3 ML IH PRN (10:24)
[2019-10-22] MEDS: DilTIAZem CD (24hr) 120 MG CAP.ER.24H PO SCH (11:36)
[2019-10-22] MEDS ORDERED: Nitroglycerin 0.4 MG TAB.SUBL SL PRN (12:22)
[2019-10-22] MEDS: Gabapentin 300 MG CAPSULE PO SCH ×2 (14:16→20:39)
[2019-10-22] MEDS ORDERED: *HR* Metoprolol 5 MG/5 ML VIAL IVP ONE (14:49)
[2019-10-22 15:28] LABS: Bilirubin,Urine Negative (Negative); Blood,Urine Negative (Negative); Clarity,Urine Clear (Clear); Color,Urine Yellow (Yellow); Glucose,Urine (UA) Normal (Normal); Ketones,Urine Trace mg/dL (Negative); Leukocyte Esterase,Urine Negative (Negative); Nitrite,Urine Negative (Negative); PH,Urine 5.5 pH Units (5.0-8.0); Protein,Urine Negative (Neg-Trace); Specific Gravity,Urine 1.021 (1.010-1.025); Urobilinogen,Urine Normal (Normal)
[2019-10-22] MEDS: Lactulose Oral Soln 20 GM/30 ML UDC PO SCH (20:39)
[2019-10-23 08:35] LABS: Basophils % 0.1 %; Hematocrit 33.4 % (37.5-50.1); Hemoglobin 10.6 g/dL (12.9-16.9); Immature Granulocytes % 0.5 % (0-4); Lymphocytes # 0.9 K/mcL (0.6-4.6); Lymphocytes % 4.6 %; Mean Corpuscular HGB Conc 31.7 g/dL (31.6-35.5); Mean Corpuscular Hemoglobin 29.5 pg (28.0-33.3); Mean Platelet Volume 11.2 fL (9.4-12.4); Monocytes # 0.6 K/mcL (0.0-1.3); Monocytes % 3.3 %; Neutrophils # 17.6 K/mcL (1.6-8.9); Platelet Count 371 K/mcL (140-400); Red Blood Count 3.59 M/mcL (4.19-5.50); Red Cell Distribution Width 18.2 % (11.5-14.5); Segmented Neutrophils % 91.5 %; White Blood Count 19.2 K/mcL (4.3-11.1)
[2019-10-23 08:54] LABS: BUN/Creatinine Ratio 29 (6-26); Blood Urea Nitrogen 24 mg/dL (8-23); Carbon Dioxide 24 mEq/L (23-29); Chloride 106 mEq/L (98-107); Glucose 154 mg/dL (70-105); Osmolality,Calculated 291 (280-300); Potassium 4.2 mEq/L (3.5-5.1); Sodium 137 mEq/L (136-145); eGFR For African Americans > 60 (> 60); eGFR For Non-African Americans > 60 (> 60)
[2019-10-23] MEDS: Gabapentin 300 MG CAPSULE PO SCH ×3 (09:07→20:25)
[2019-10-23] MEDS: Furosemide 20 MG TABLET PO SCH (09:07)
[2019-10-23] MEDS: Folic Acid 1 MG TABLET PO SCH (09:07)
[2019-10-23] MEDS: DilTIAZem CD (24hr) 120 MG CAP.ER.24H PO SCH (09:08)
[2019-10-23] MEDS: levoFLOXacin 750 MG/150 ML 750 MG/150 ML BAG IVPB SCH (09:08)
[2019-10-23] MEDS: Lactulose Oral Soln 20 GM/30 ML UDC PO SCH ×2 (09:08→20:25)
[2019-10-23] MEDS: Thiamine (B-1) 100 MG TABLET PO SCH (09:08)
[2019-10-23] MEDS: Apixaban 5 MG TABLET PO SCH ×2 (09:08→20:25)
[2019-10-23] MEDS: MethylPREDNISolone 40 MG/ML VIAL IVP SCH ×2 (11:25→23:57)
[2019-10-24 05:49] LABS: Hematocrit 33.9 % (37.5-50.1); Hemoglobin 10.9 g/dL (12.9-16.9); Mean Corpuscular HGB Conc 32.2 g/dL (31.6-35.5); Mean Corpuscular Hemoglobin 29.4 pg (28.0-33.3); Mean Corpuscular Volume 91.4 fL (83.0-100.0); Mean Platelet Volume 11.2 fL (9.4-12.4); Platelet Count 391 K/mcL (140-400); Red Blood Count 3.71 M/mcL (4.19-5.50); White Blood Count 14.3 K/mcL (4.3-11.1)
[2019-10-24 06:10] LABS: BUN/Creatinine Ratio 31 (6-26); Blood Urea Nitrogen 27 mg/dL (8-23); Calcium 8.8 mg/dL (8.6-10.3); Carbon Dioxide 25 mEq/L (23-29); Chloride 106 mEq/L (98-107); Glucose 164 mg/dL (70-105); Osmolality,Calculated 295 (280-300); Potassium 3.9 mEq/L (3.5-5.1); Sodium 138 mEq/L (136-145); eGFR For African Americans > 60 (> 60); eGFR For Non-African Americans > 60 (> 60)
[2019-10-24] MEDS: DilTIAZem CD (24hr) 120 MG CAP.ER.24H PO SCH (09:29)
[2019-10-24] MEDS: Folic Acid 1 MG TABLET PO SCH (09:29)
[2019-10-24] MEDS: Thiamine (B-1) 100 MG TABLET PO SCH (09:29)
[2019-10-24] MEDS: Furosemide 20 MG TABLET PO SCH (09:29)
[2019-10-24] MEDS: levoFLOXacin 750 MG/150 ML 750 MG/150 ML BAG IVPB SCH (09:29)
[2019-10-24] MEDS: Gabapentin 300 MG CAPSULE PO SCH ×3 (09:29→20:43)
[2019-10-24] MEDS: Apixaban 5 MG TABLET PO SCH ×2 (09:29→20:43)
[2019-10-24] MEDS: Lactulose Oral Soln 20 GM/30 ML UDC PO SCH ×2 (09:30→20:44)
[2019-10-24] MEDS: MethylPREDNISolone 40 MG/ML VIAL IVP SCH ×2 (11:16→23:21)
[2019-10-24] MEDS: Valsartan 80 MG TABLET PO SCH (20:43)
[2019-10-24] MEDS: Budesonide Neb 0.5 MG/2 ML IH SCH (21:49)
[2019-10-25 05:34] LABS: Basophils % 0.3 %; Hematocrit 35.6 % (37.5-50.1); Hemoglobin 11.5 g/dL (12.9-16.9); Immature Granulocytes % 1.7 % (0-4); Lymphocytes # 1.2 K/mcL (0.6-4.6); Lymphocytes % 11.9 %; Mean Corpuscular HGB Conc 32.3 g/dL (31.6-35.5); Mean Corpuscular Volume 89.9 fL (83.0-100.0); Mean Platelet Volume 11.6 fL (9.4-12.4); Monocytes # 0.4 K/mcL (0.0-1.3); Monocytes % 4.4 %; Neutrophils # 8.3 K/mcL (1.6-8.9); Nucleated Red Blood Cells 1.1 /100 WBC (0); Platelet Count 414 K/mcL (140-400); Red Blood Count 3.96 M/mcL (4.19-5.50); Red Cell Distribution Width 17.7 % (11.5-14.5); Segmented Neutrophils % 81.7 %; White Blood Count 10.1 K/mcL (4.3-11.1)
[2019-10-25 06:01] LABS: BUN/Creatinine Ratio 35 (6-26); Blood Urea Nitrogen 27 mg/dL (8-23); Calcium 8.6 mg/dL (8.6-10.3); Carbon Dioxide 26 mEq/L (23-29); Chloride 105 mEq/L (98-107); Glucose 164 mg/dL (70-105); Magnesium 1.7 mg/dL (1.6-2.6); Osmolality,Calculated 295 (280-300); Potassium 3.9 mEq/L (3.5-5.1); Sodium 138 mEq/L (136-145); eGFR For African Americans > 60 (> 60); eGFR For Non-African Americans > 60 (> 60)
[2019-10-25] MEDS: Gabapentin 300 MG CAPSULE PO SCH ×3 (09:46→20:30)
[2019-10-25] MEDS: Folic Acid 1 MG TABLET PO SCH (09:46)
[2019-10-25] MEDS: DilTIAZem CD (24hr) 120 MG CAP.ER.24H PO SCH (09:46)
[2019-10-25] MEDS: Thiamine (B-1) 100 MG TABLET PO SCH (09:47)
[2019-10-25] MEDS: Apixaban 5 MG TABLET PO SCH ×2 (09:47→20:30)
[2019-10-25] MEDS: Valsartan 80 MG TABLET PO SCH ×2 (09:47→20:29)
[2019-10-25] MEDS: Furosemide 20 MG TABLET PO SCH (09:48)
[2019-10-25] MEDS: levoFLOXacin 750 MG/150 ML 750 MG/150 ML BAG IVPB SCH (09:48)
[2019-10-25] MEDS: Budesonide Neb 0.5 MG/2 ML IH SCH ×2 (10:23→21:43)
[2019-10-25] MEDS: Lactulose Oral Soln 20 GM/30 ML UDC PO SCH ×2 (12:17→20:30)
[2019-10-25] MEDS: MethylPREDNISolone 40 MG/ML VIAL IVP SCH ×2 (12:17→23:34)
[2019-10-26 08:47] LABS: Basophils % 0.4 %; Hematocrit 39.2 % (37.5-50.1); Hemoglobin 12.6 g/dL (12.9-16.9); Immature Granulocytes % 2.7 % (0-4); Lymphocytes # 1.4 K/mcL (0.6-4.6); Lymphocytes % 12.8 %; Mean Corpuscular HGB Conc 32.1 g/dL (31.6-35.5); Mean Corpuscular Hemoglobin 28.7 pg (28.0-33.3); Mean Corpuscular Volume 89.3 fL (83.0-100.0); Mean Platelet Volume 11.8 fL (9.4-12.4); Monocytes # 0.6 K/mcL (0.0-1.3); Monocytes % 5.6 %; Neutrophils # 8.5 K/mcL (1.6-8.9); Nucleated Red Blood Cells 1.5 /100 WBC (0); Platelet Count 298 K/mcL (140-400); Red Blood Count 4.39 M/mcL (4.19-5.50); Red Cell Distribution Width 17.2 % (11.5-14.5); Segmented Neutrophils % 78.5 %; White Blood Count 10.8 K/mcL (4.3-11.1)
[2019-10-26 09:08] LABS: BUN/Creatinine Ratio 34 (6-26); Blood Urea Nitrogen 25 mg/dL (8-23); Calcium 8.9 mg/dL (8.6-10.3); Carbon Dioxide 26 mEq/L (23-29); Chloride 103 mEq/L (98-107); Glucose 161 mg/dL (70-105); Magnesium 1.7 mg/dL (1.6-2.6); Osmolality,Calculated 290 (280-300); Sodium 136 mEq/L (136-145); eGFR For African Americans > 60 (> 60); eGFR For Non-African Americans > 60 (> 60)
[2019-10-26] MEDS: MethylPREDNISolone 40 MG/ML VIAL IVP SCH (09:45)
[2019-10-26] MEDS: Gabapentin 300 MG CAPSULE PO SCH (09:45)
[2019-10-26] MEDS: Furosemide 20 MG TABLET PO SCH (09:46)
[2019-10-26] MEDS: Folic Acid 1 MG TABLET PO SCH (09:46)
[2019-10-26] MEDS: Apixaban 5 MG TABLET PO SCH (09:46)
[2019-10-26] MEDS: Thiamine (B-1) 100 MG TABLET PO SCH (09:47)
[2019-10-26] MEDS: DilTIAZem CD (24hr) 120 MG CAP.ER.24H PO SCH (09:47)
[2019-10-26] MEDS: Valsartan 80 MG TABLET PO SCH (09:47)
[2019-10-26] MEDS: levoFLOXacin 750 MG/150 ML 750 MG/150 ML BAG IVPB SCH (09:47)
[2019-10-26] MEDS: Budesonide Neb 0.5 MG/2 ML IH SCH (09:52)
[2019-10-26 10:46] VITALS: BP 139/89
[2019-10-26] MEDS: Lactulose Oral Soln 20 GM/30 ML UDC PO SCH (11:43)
[2019-10-26] MEDS ORDERED: Lactulose Oral Soln 20 GM/30 ML UDC PO SCH (12:00)
== END 2019-10-26 14:54 | DRG 193 ==
LOC: 2ANU → SUATTDRO 22:50
PROVIDERS: ADMIT Internal Medicine; ATTEND Pharmacist

== ENCOUNTER 2020-04-16 17:25 | Inpatient (IN) ==
[2020-04-16] MEDS ORDERED: Naloxone 0.4 MG/ML INJ IVP PRN (19:50)
[2020-04-16] MEDS ORDERED: Ondansetron 4 MG/2 ML VIAL IVP PRN (19:50)
[2020-04-16] MEDS ORDERED: 0.9 % Sodium Chloride 1,000 ML IVC ONE (20:21)
[2020-04-16] MEDS ORDERED: *HR* LORazepam 2 MG/ML VIAL IVP PRN (20:45)
[2020-04-16 20:56] LABS: BUN/Creatinine Ratio 21 (6-26); Blood Urea Nitrogen 74 mg/dL (8-23); Carbon Dioxide 21 mEq/L (23-29); Chloride 106 mEq/L (98-107); Glucose 80 mg/dL (70-105); Osmolality,Calculated 305 (280-300); Potassium 5.7 mEq/L (3.5-5.1); Sodium 137 mEq/L (136-145); eGFR For African Americans 21 (> 60); eGFR For Non-African Americans 18 (> 60)
[2020-04-16 20:57] LABS: Troponin I < 0.03 ng/mL (< 0.04)
[2020-04-16 21:09] LABS: Basophils % 0.6 %; Eosinophils # 0.4 K/mcL (0.0-0.6); Eosinophils % 6.4 %; Hematocrit 30.7 % (37.5-50.1); Hemoglobin 9.5 g/dL (12.9-16.9); Immature Granulocytes % 0.3 % (0-4); Lymphocytes # 0.7 K/mcL (0.6-4.6); Mean Corpuscular HGB Conc 30.9 g/dL (31.6-35.5); Mean Corpuscular Hemoglobin 30.1 pg (28.0-33.3); Mean Corpuscular Volume 97.2 fL (83.0-100.0); Mean Platelet Volume 11.5 fL (9.4-12.4); Monocytes # 0.6 K/mcL (0.0-1.3); Monocytes % 9.6 %; Neutrophils # 4.6 K/mcL (1.6-8.9); Nucleated Red Blood Cells 0.8 /100 WBC (0); Platelet Count 180 K/mcL (140-400); Red Blood Count 3.16 M/mcL (4.19-5.50); Red Cell Distribution Width 21.5 % (11.5-14.5); Segmented Neutrophils % 72.1 %; White Blood Count 6.4 K/mcL (4.3-11.1)
[2020-04-16 21:37] LABS: Bilirubin,Urine Negative (Negative); Blood,Urine Small (Negative); Clarity,Urine Turbid (Clear); Color,Urine Yellow (Yellow); Glucose,Urine (UA) Normal (Normal); Hyaline Casts,Urine Few per lpf (None Seen); Ketones,Urine Negative (Negative); Leukocyte Esterase,Urine Large (Negative); Mucus,Urine Few per lpf (None-Few); Nitrite,Urine Negative (Negative); PH,Urine 5.5 pH Units (5.0-8.0); Protein,Urine Trace mg/dL (Neg-Trace); Specific Gravity,Urine 1.018 (1.010-1.025); Squamous Epithelial Cell,Urine Few per hpf (None-Few); WBC,Urine 50-100 per hpf (0-3)
[2020-04-16 21:43] LABS: Protein/Creatinine Ratio,Urine 0.11 mg/mg (0.00-0.20); Sodium, Urine 10.3 mEq/L
[2020-04-16] MEDS: Apixaban 5 MG TABLET PO SCH (22:16)
[2020-04-16] MEDS: 0.9 % Sodium Chloride 1,000 ML IVC SCH (22:56)
[2020-04-17 04:11] LABS: Basophils % 0.8 %; Eosinophils # 0.3 K/mcL (0.0-0.6); Eosinophils % 6.5 %; Hematocrit 30.2 % (37.5-50.1); Hemoglobin 9.2 g/dL (12.9-16.9); Immature Granulocytes % 0.2 % (0-4); Lymphocytes # 0.9 K/mcL (0.6-4.6); Lymphocytes % 16.8 %; Mean Corpuscular HGB Conc 30.5 g/dL (31.6-35.5); Mean Corpuscular Hemoglobin 29.7 pg (28.0-33.3); Mean Corpuscular Volume 97.4 fL (83.0-100.0); Mean Platelet Volume 11.8 fL (9.4-12.4); Monocytes # 0.5 K/mcL (0.0-1.3); Monocytes % 9.6 %; Neutrophils # 3.4 K/mcL (1.6-8.9); Platelet Count 194 K/mcL (140-400); Red Cell Distribution Width 21.5 % (11.5-14.5); Segmented Neutrophils % 66.1 %; White Blood Count 5.1 K/mcL (4.3-11.1)
[2020-04-17 04:22] LABS: INR 2.8; Prothrombin Time 31.9 Seconds (9.4-12.1)
[2020-04-17 04:32] LABS: Albumin 3.3 g/dL (3.5-5.7); Albumin/Globulin Ratio 1.1 (1.1-2.2); Bilirubin,Total 0.8 mg/dL (0.3-1.0); Calcium 8.5 mg/dL (8.6-10.3); Chol/HDL Ratio 1.9 (0-4.9); Potassium 5.6 mEq/L (3.5-5.1); Total Protein 6.3 g/dL (6.4-8.9)
[2020-04-17 04:44] LABS: Thyroid Stimulating Hormone 14.09 mcIU/mL (0.340-5.600)
[2020-04-17] MEDS: 0.9 % Sodium Chloride 1,000 ML IVC SCH (06:51)
[2020-04-17] MEDS ORDERED: Lactulose Oral Soln 20 GM/30 ML UDC PO SCH (09:00)
[2020-04-17] MEDS: Lactulose Oral Soln 20 GM/30 ML UDC PO SCH (09:16)
[2020-04-17] MEDS: Apixaban 5 MG TABLET PO SCH ×2 (09:18→21:56)
[2020-04-17] MEDS: Thiamine (B-1) 100 MG, Folic Acid 1 MG, MVI, adult with vitamin K 10 ML in 0.9 % Sodi... IVPB SCH (17:15)
[2020-04-17] MEDS ORDERED: Insulin Human Regular 10 UNIT in 0.9 % Sodium Chloride 10 ML IV ONE (20:26)
[2020-04-17] MEDS ORDERED: *HR* Dextrose 50 % in Water (Vial) 50 ML VIAL IVP ONE (20:26)
[2020-04-18] MEDS: *HR* LORazepam 2 MG/ML VIAL IVP PRN ×4 (01:18→20:16)
[2020-04-18 06:12] LABS: Basophils # 0.1 K/mcL (0.0-0.2); Basophils % 0.6 %; Eosinophils # 0.5 K/mcL (0.0-0.6); Eosinophils % 5.8 %; Hematocrit 30.9 % (37.5-50.1); Hemoglobin 9.9 g/dL (12.9-16.9); Immature Granulocytes % 0.2 % (0-4); Lymphocytes # 1.1 K/mcL (0.6-4.6); Lymphocytes % 13.1 %; Mean Corpuscular Hemoglobin 31.3 pg (28.0-33.3); Mean Corpuscular Volume 97.8 fL (83.0-100.0); Mean Platelet Volume 11.8 fL (9.4-12.4); Monocytes # 0.8 K/mcL (0.0-1.3); Monocytes % 9.1 %; Neutrophils # 6.1 K/mcL (1.6-8.9); Nucleated Red Blood Cells 1.2 /100 WBC (0); Platelet Count 194 K/mcL (140-400); Red Blood Count 3.16 M/mcL (4.19-5.50); Red Cell Distribution Width 21.5 % (11.5-14.5); Segmented Neutrophils % 71.2 %
[2020-04-18 06:17] LABS: White Blood Count 8.6 K/mcL (4.3-11.1)
[2020-04-18 06:36] LABS: % Iron Saturation 16 % (20-55); Iron 59 mcg/dL (65-175); Transferrin 258 mg/dL (203-362)
[2020-04-18 06:38] LABS: Calcium 8.6 mg/dL (8.6-10.3); Magnesium 1.9 mg/dL (1.6-2.6); Phosphorous 3.2 mg/dL (2.7-4.5); Potassium 5.3 mEq/L (3.5-5.1)
[2020-04-18] MEDS: Apixaban 5 MG TABLET PO SCH ×2 (09:34→19:58)
[2020-04-18] MEDS: Lactulose Oral Soln 20 GM/30 ML UDC PO SCH (09:34)
[2020-04-18] MEDS ORDERED: Perflutren Lipid Microsphere 1.3 ML in 0.9 % Sodium Chloride 8.7 ML IVP PRN (16:08)
[2020-04-18] MEDS: Thiamine (B-1) 100 MG, Folic Acid 1 MG, MVI, adult with vitamin K 10 ML in 0.9 % Sodi... IVPB SCH (18:21)
[2020-04-18] MEDS: Metoprolol 100 MG TABLET PO SCH (19:57)
[2020-04-19 03:14] LABS: Basophils % 0.2 %; Eosinophils # 0.4 K/mcL (0.0-0.6); Eosinophils % 3.8 %; Hematocrit 34.8 % (37.5-50.1); Hemoglobin 10.2 g/dL (12.9-16.9); Immature Granulocytes % 0.4 % (0-4); Lymphocytes # 0.8 K/mcL (0.6-4.6); Lymphocytes % 7.2 %; Mean Corpuscular HGB Conc 29.3 g/dL (31.6-35.5); Mean Corpuscular Hemoglobin 29.3 pg (28.0-33.3); Mean Platelet Volume 11.6 fL (9.4-12.4); Monocytes # 0.7 K/mcL (0.0-1.3); Monocytes % 6.4 %; Neutrophils # 8.8 K/mcL (1.6-8.9); Nucleated Red Blood Cells 0.8 /100 WBC (0); Platelet Count 190 K/mcL (140-400); Red Blood Count 3.48 M/mcL (4.19-5.50); Red Cell Distribution Width 22.1 % (11.5-14.5); White Blood Count 10.7 K/mcL (4.3-11.1)
[2020-04-19 03:35] LABS: Albumin 3.7 g/dL (3.5-5.7); Albumin/Globulin Ratio 1.2 (1.1-2.2); Bilirubin,Total 1.1 mg/dL (0.3-1.0); Calcium 8.9 mg/dL (8.6-10.3); Globulin 3.1 g/dL (2.4-3.5); Potassium 5.2 mEq/L (3.5-5.1); Total Protein 6.8 g/dL (6.4-8.9)
[2020-04-19 04:01] LABS: Folate > 22.3 ng/mL (3.0-16.0); Vitamin B12 479 pg/mL (250-1100)
[2020-04-19] MEDS: Apixaban 5 MG TABLET PO SCH ×2 (07:31→21:12)
[2020-04-19] MEDS: Metoprolol 100 MG TABLET PO SCH ×2 (07:33→21:12)
[2020-04-19] MEDS: Lactulose Oral Soln 20 GM/30 ML UDC PO SCH (07:33)
[2020-04-19] MEDS: Ipratropium/Albuterol Neb 3 ML IH SCH ×5 (10:26→23:16)
[2020-04-19 10:28] LABS: ABG Base Excess -1 mEq/L (-2 to 3); ABG HCO3 25 mEq/L (21-27); ABG Oxygen Saturation 96 % (95-98); ABG PCO2 41 mmHg (35-45); ABG PH 7.39 pH Units (7.32-7.45); ABG PO2 80 mmHg (85-104); ABG TCO2 26 mEq/L (20-26)
[2020-04-19] MEDS: *HR* LORazepam 2 MG/ML VIAL IVP PRN ×3 (10:48→15:38)
[2020-04-19 10:49] LABS: Bacteria,Urine Moderate per hpf (None-Few); Bilirubin,Urine Negative (Negative); Blood,Urine Large (Negative); Clarity,Urine Turbid (Clear); Color,Urine Yellow (Yellow); Glucose,Urine (UA) Normal (Normal); Ketones,Urine Negative (Negative); Leukocyte Esterase,Urine Large (Negative); Mucus,Urine Few per lpf (None-Few); Nitrite,Urine Negative (Negative); Protein,Urine Trace mg/dL (Neg-Trace); RBC,Urine TNTC per hpf (0-3); Specific Gravity,Urine 1.014 (1.010-1.025); Urobilinogen,Urine Normal (Normal); WBC,Urine TNTC per hpf (0-3)
[2020-04-19 10:55] LABS: Protein/Creatinine Ratio,Urine 0.67 mg/mg (0.00-0.20); Sodium, Urine 45.1 mEq/L
[2020-04-19] MEDS: DilTIAZem CD (24hr) 120 MG CAP.ER.24H PO SCH (13:34)
[2020-04-19] MEDS ORDERED: Ipratropium/Albuterol Neb 3 ML IH ONE (21:36)
[2020-04-19] MEDS: *HR* Metoprolol 5 MG/5 ML VIAL IVP PRN (21:52)
[2020-04-20] MEDS ORDERED: Acetaminophen IV 1,000 MG/100 ML INFUS..BTL IVPB ONE (02:57)
[2020-04-20] MEDS: Ipratropium/Albuterol Neb 3 ML IH SCH ×6 (03:19→23:58)
[2020-04-20 03:59] LABS: ABG Base Excess 0 mEq/L (-2 to 3); ABG HCO3 26 mEq/L (21-27); ABG Oxygen Saturation 96 % (95-98); ABG PCO2 46 mmHg (35-45); ABG PH 7.36 pH Units (7.32-7.45); ABG PO2 89 mmHg (85-104); ABG TCO2 27 mEq/L (20-26)
[2020-04-20 04:59] LABS: Basophils # 0.1 K/mcL (0.0-0.2); Basophils % 0.4 %; Eosinophils # 0.1 K/mcL (0.0-0.6); Eosinophils % 0.4 %; Hematocrit 28.6 % (37.5-50.1); Hemoglobin 8.8 g/dL (12.9-16.9); Immature Granulocytes % 0.3 % (0-4); Lymphocytes % 8.4 %; Mean Corpuscular HGB Conc 30.8 g/dL (31.6-35.5); Mean Corpuscular Hemoglobin 30.7 pg (28.0-33.3); Mean Corpuscular Volume 99.7 fL (83.0-100.0); Mean Platelet Volume 11.9 fL (9.4-12.4); Monocytes % 7.7 %; Neutrophils # 10.3 K/mcL (1.6-8.9); Nucleated Red Blood Cells 0.6 /100 WBC (0); Platelet Count 179 K/mcL (140-400); Red Blood Count 2.87 M/mcL (4.19-5.50); Red Cell Distribution Width 21.9 % (11.5-14.5); Segmented Neutrophils % 82.8 %; White Blood Count 12.4 K/mcL (4.3-11.1)
[2020-04-20 05:16] LABS: Calcium 8.8 mg/dL (8.6-10.3); Magnesium 1.7 mg/dL (1.6-2.6); Phosphorous 3.7 mg/dL (2.7-4.5); Potassium 4.5 mEq/L (3.5-5.1)
[2020-04-20] MEDS ORDERED: Folic Acid 1 MG TABLET PO SCH (09:00)
[2020-04-20] MEDS: Thiamine (B-1) 100 MG TABLET PO SCH (09:47)
[2020-04-20] MEDS: Metoprolol 100 MG TABLET PO SCH ×2 (09:47→20:22)
[2020-04-20] MEDS: Multivit/Ca/Min/Fe/FA 1 TAB TABLET PO SCH (09:47)
[2020-04-20] MEDS: DilTIAZem CD (24hr) 120 MG CAP.ER.24H PO SCH (09:47)
[2020-04-20] MEDS: Apixaban 5 MG TABLET PO SCH ×2 (09:47→20:22)
[2020-04-20] MEDS: Lactulose Oral Soln 20 GM/30 ML UDC PO SCH (09:48)
[2020-04-20] MEDS: levoFLOXacin 750 MG/150 ML 750 MG/150 ML BAG IVPB SCH (09:54)
[2020-04-20] MEDS: *HR* LORazepam 2 MG/ML VIAL IVP PRN (09:55)
[2020-04-20] MEDS ORDERED: *HR* Dextrose 50 % in Water (Vial) 50 ML VIAL IVP PRN (15:14)
[2020-04-20] MEDS ORDERED: D5% in Water 1,000 ML IVC PRN (15:14)
[2020-04-20] MEDS ORDERED: Dextrose Gel 15 GM/37.5 ML TUBE PO PRN ×2 (15:14)
[2020-04-20] MEDS: *HR* Metoprolol 5 MG/5 ML VIAL IVP PRN (23:32)
[2020-04-21 02:42] LABS: Basophils % 0.3 %; Eosinophils # 0.2 K/mcL (0.0-0.6); Eosinophils % 1.4 %; Hemoglobin 8.7 g/dL (12.9-16.9); Immature Granulocytes % 0.4 % (0-4); Lymphocytes % 7.8 %; Mean Corpuscular HGB Conc 31.1 g/dL (31.6-35.5); Mean Corpuscular Hemoglobin 31.1 pg (28.0-33.3); Mean Platelet Volume 11.3 fL (9.4-12.4); Monocytes # 0.9 K/mcL (0.0-1.3); Neutrophils # 10.3 K/mcL (1.6-8.9); Nucleated Red Blood Cells 1.4 /100 WBC (0); Platelet Count 170 K/mcL (140-400); Segmented Neutrophils % 83.1 %; White Blood Count 12.4 K/mcL (4.3-11.1)
[2020-04-21 03:04] LABS: Alanine Aminotransferase 5 Units/L (7-52); Albumin 3.4 g/dL (3.5-5.7); Albumin/Globulin Ratio 1.1 (1.1-2.2); Alkaline Phosphatase 66 Units/L (34-104); Aspartate Amino Transferase 15 Units/L (13-39); BUN/Creatinine Ratio 32 (6-26); Bilirubin,Total 1.3 mg/dL (0.3-1.0); Blood Urea Nitrogen 43 mg/dL (8-23); Calcium 8.9 mg/dL (8.6-10.3); Carbon Dioxide 24 mEq/L (23-29); Chloride 116 mEq/L (98-107); Globulin 3.2 g/dL (2.4-3.5); Glucose 108 mg/dL (70-105); Magnesium 1.7 mg/dL (1.6-2.6); Osmolality,Calculated 319 (280-300); Phosphorous 3.6 mg/dL (2.7-4.5); Potassium 4.2 mEq/L (3.5-5.1); Sodium 149 mEq/L (136-145); Total Protein 6.6 g/dL (6.4-8.9); eGFR For African Americans > 60 (> 60); eGFR For Non-African Americans 52 (> 60)
[2020-04-21] MEDS: Ipratropium/Albuterol Neb 3 ML IH SCH ×6 (03:45→23:05)
[2020-04-21] MEDS: Metoprolol 100 MG TABLET PO SCH ×2 (08:10→20:20)
[2020-04-21] MEDS: Apixaban 5 MG TABLET PO SCH ×2 (08:10→20:20)
[2020-04-21] MEDS: Thiamine (B-1) 100 MG TABLET PO SCH (08:10)
[2020-04-21] MEDS: Lactulose Oral Soln 20 GM/30 ML UDC PO SCH (08:10)
[2020-04-21] MEDS: DilTIAZem CD (24hr) 120 MG CAP.ER.24H PO SCH (08:10)
[2020-04-21] MEDS: Multivit/Ca/Min/Fe/FA 1 TAB TABLET PO SCH (08:10)
[2020-04-21] MEDS: levoFLOXacin 750 MG/150 ML 750 MG/150 ML BAG IVPB SCH (08:11)
[2020-04-21] MEDS: D5% in Water 1,000 ML IVC SCH ×2 (09:47→20:20)
[2020-04-21 15:30] LABS: Chlamydia Trachomatis DNA Ur NOT DETECTED (Not Detect)
[2020-04-21] MEDS: *HR* OxyCODONE/APAP 5/325 TABLET PO PRN (17:06)
[2020-04-21 19:56] LABS: BUN/Creatinine Ratio 29 (6-26); Blood Urea Nitrogen 36 mg/dL (8-23); Calcium 8.6 mg/dL (8.6-10.3); Carbon Dioxide 26 mEq/L (23-29); Chloride 113 mEq/L (98-107); Glucose 131 mg/dL (70-105); Osmolality,Calculated 314 (280-300); Potassium 3.8 mEq/L (3.5-5.1); Sodium 147 mEq/L (136-145); eGFR For African Americans > 60 (> 60); eGFR For Non-African Americans 57 (> 60)
[2020-04-22 02:34] LABS: Alpha 2 Globulin (PEP) 0.73 g/dL (0.48-1.05); Beta Globulin (PEP) 0.85 g/dL (0.48-1.10)
[2020-04-22] MEDS: Ipratropium/Albuterol Neb 3 ML IH SCH ×6 (03:50→23:13)
[2020-04-22] MEDS: D5% in Water 1,000 ML IVC SCH (04:07)
[2020-04-22 05:31] LABS: Basophils # 0.1 K/mcL (0.0-0.2); Basophils % 0.6 %; Eosinophils # 1.4 K/mcL (0.0-0.6); Eosinophils % 15.7 %; Hemoglobin 8.2 g/dL (12.9-16.9); Immature Granulocytes % 1.2 % (0-4); Lymphocytes # 1.5 K/mcL (0.6-4.6); Lymphocytes % 16.8 %; Mean Corpuscular HGB Conc 31.5 g/dL (31.6-35.5); Mean Corpuscular Volume 95.2 fL (83.0-100.0); Mean Platelet Volume 12.8 fL (9.4-12.4); Monocytes # 0.7 K/mcL (0.0-1.3); Monocytes % 7.3 %; Neutrophils # 5.3 K/mcL (1.6-8.9); Nucleated Red Blood Cells 3.1 /100 WBC (0); Platelet Count 156 K/mcL (140-400); Red Blood Count 2.73 M/mcL (4.19-5.50); Red Cell Distribution Width 20.6 % (11.5-14.5); Segmented Neutrophils % 58.4 %
[2020-04-22 05:40] LABS: BUN/Creatinine Ratio 27 (6-26); Blood Urea Nitrogen 35 mg/dL (8-23); Carbon Dioxide 25 mEq/L (23-29); Chloride 112 mEq/L (98-107); Glucose 102 mg/dL (70-105); Magnesium 1.9 mg/dL (1.6-2.6); Osmolality,Calculated 304 (280-300); Phosphorous 3.4 mg/dL (2.7-4.5); Potassium 4.1 mEq/L (3.5-5.1); Sodium 143 mEq/L (136-145); eGFR For African Americans > 60 (> 60); eGFR For Non-African Americans 56 (> 60)
[2020-04-22] MEDS: levoFLOXacin 750 MG/150 ML 750 MG/150 ML BAG IVPB SCH (09:20)
[2020-04-22] MEDS: DilTIAZem CD (24hr) 120 MG CAP.ER.24H PO SCH (09:21)
[2020-04-22] MEDS: Metoprolol 100 MG TABLET PO SCH ×2 (09:21→20:51)
[2020-04-22] MEDS: Lactulose Oral Soln 20 GM/30 ML UDC PO SCH (09:21)
[2020-04-22] MEDS: Thiamine (B-1) 100 MG TABLET PO SCH (09:21)
[2020-04-22] MEDS: Multivit/Ca/Min/Fe/FA 1 TAB TABLET PO SCH (09:21)
[2020-04-22] MEDS: Apixaban 5 MG TABLET PO SCH ×2 (09:21→20:51)
[2020-04-22 15:05] LABS: IFE Reflexed NOT DONE
[2020-04-22] MEDS: Furosemide 20 MG TABLET PO SCH (17:00)
[2020-04-22] MEDS: *HR* OxyCODONE/APAP 5/325 TABLET PO PRN (23:20)
[2020-04-23 01:34] LABS: Basophils # 0.1 K/mcL (0.0-0.2); Basophils % 0.7 %; Eosinophils # 1.2 K/mcL (0.0-0.6); Eosinophils % 17.2 %; Hematocrit 25.9 % (37.5-50.1); Hemoglobin 8.3 g/dL (12.9-16.9); Immature Granulocytes % 0.4 % (0-4); Mean Corpuscular Volume 96.6 fL (83.0-100.0); Mean Platelet Volume 11.6 fL (9.4-12.4); Monocytes # 0.7 K/mcL (0.0-1.3); Monocytes % 9.6 %; Nucleated Red Blood Cells 3.5 /100 WBC (0); Platelet Count 179 K/mcL (140-400); Red Blood Count 2.68 M/mcL (4.19-5.50); Red Cell Distribution Width 20.2 % (11.5-14.5); Segmented Neutrophils % 58.1 %; White Blood Count 6.9 K/mcL (4.3-11.1)
[2020-04-23 01:48] LABS: BUN/Creatinine Ratio 23 (6-26); Blood Urea Nitrogen 25 mg/dL (8-23); Calcium 8.1 mg/dL (8.6-10.3); Carbon Dioxide 26 mEq/L (23-29); Chloride 106 mEq/L (98-107); Glucose 85 mg/dL (70-105); Osmolality,Calculated 296 (280-300); Potassium 3.5 mEq/L (3.5-5.1); Sodium 141 mEq/L (136-145); eGFR For African Americans > 60 (> 60); eGFR For Non-African Americans > 60 (> 60)
[2020-04-23] MEDS: Ipratropium/Albuterol Neb 3 ML IH SCH ×6 (04:09→23:17)
[2020-04-23] MEDS: Furosemide 20 MG TABLET PO SCH (05:26)
[2020-04-23] MEDS: Multivit/Ca/Min/Fe/FA 1 TAB TABLET PO SCH (08:44)
[2020-04-23] MEDS: levoFLOXacin 750 MG TABLET PO SCH (08:44)
[2020-04-23] MEDS: Thiamine (B-1) 100 MG TABLET PO SCH (08:45)
[2020-04-23] MEDS: DilTIAZem CD (24hr) 120 MG CAP.ER.24H PO SCH (08:45)
[2020-04-23] MEDS: Lactulose Oral Soln 20 GM/30 ML UDC PO SCH (08:45)
[2020-04-23] MEDS: Apixaban 5 MG TABLET PO SCH ×2 (08:45→21:32)
[2020-04-23] MEDS: Metoprolol 100 MG TABLET PO SCH ×2 (08:45→21:32)
[2020-04-23] MEDS ORDERED: Morphine Sulfate 2 MG/ML SYRINGE IVP ONE (21:45)
[2020-04-23] MEDS ORDERED: Acetaminophen IV 1,000 MG/100 ML INFUS..BTL IVPB ONE (23:24)
[2020-04-24] MEDS: Ipratropium/Albuterol Neb 3 ML IH SCH ×2 (03:55→07:43)
[2020-04-24 05:23] LABS: Basophils % 0.6 %; Eosinophils # 0.8 K/mcL (0.0-0.6); Eosinophils % 11.7 %; Hematocrit 27.2 % (37.5-50.1); Hemoglobin 8.6 g/dL (12.9-16.9); Immature Granulocytes % 0.6 % (0-4); Lymphocytes # 1.2 K/mcL (0.6-4.6); Lymphocytes % 16.5 %; Mean Corpuscular HGB Conc 31.6 g/dL (31.6-35.5); Mean Corpuscular Hemoglobin 30.7 pg (28.0-33.3); Mean Corpuscular Volume 97.1 fL (83.0-100.0); Mean Platelet Volume 12.3 fL (9.4-12.4); Monocytes # 0.7 K/mcL (0.0-1.3); Monocytes % 10.3 %; Neutrophils # 4.3 K/mcL (1.6-8.9); Nucleated Red Blood Cells 3.4 /100 WBC (0); Platelet Count 180 K/mcL (140-400); Red Cell Distribution Width 20.1 % (11.5-14.5); Segmented Neutrophils % 60.3 %; White Blood Count 7.2 K/mcL (4.3-11.1)
[2020-04-24 05:42] LABS: BUN/Creatinine Ratio 16 (6-26); Blood Urea Nitrogen 18 mg/dL (8-23); Calcium 7.9 mg/dL (8.6-10.3); Carbon Dioxide 25 mEq/L (23-29); Chloride 105 mEq/L (98-107); Glucose 80 mg/dL (70-105); Magnesium 1.3 mg/dL (1.6-2.6); Osmolality,Calculated 291 (280-300); Potassium 3.9 mEq/L (3.5-5.1); Sodium 140 mEq/L (136-145); eGFR For African Americans > 60 (> 60); eGFR For Non-African Americans > 60 (> 60)
[2020-04-24 05:59] LABS: Ferritin 92 ng/mL (20-250)
[2020-04-24] MEDS: Apixaban 5 MG TABLET PO SCH ×2 (08:24→19:31)
[2020-04-24] MEDS: Furosemide 40 MG TABLET PO SCH (08:24)
[2020-04-24] MEDS: Thiamine (B-1) 100 MG TABLET PO SCH (08:24)
[2020-04-24] MEDS: Metoprolol 100 MG TABLET PO SCH ×2 (08:24→19:31)
[2020-04-24] MEDS: Finasteride 5 MG TABLET PO SCH (08:24)
[2020-04-24] MEDS: levoFLOXacin 750 MG TABLET PO SCH (08:24)
[2020-04-24] MEDS: Multivit/Ca/Min/Fe/FA 1 TAB TABLET PO SCH (08:24)
[2020-04-24] MEDS: Lactulose Oral Soln 20 GM/30 ML UDC PO SCH (08:24)
[2020-04-24] MEDS: DilTIAZem CD (24hr) 120 MG CAP.ER.24H PO SCH (08:24)
[2020-04-24] MEDS ORDERED: Ipratropium/Albuterol Neb 3 ML IH PRN (11:12)
[2020-04-25 01:43] LABS: Basophils % 0.4 %; Eosinophils # 0.9 K/mcL (0.0-0.6); Eosinophils % 10.4 %; Hematocrit 26.8 % (37.5-50.1); Hemoglobin 8.6 g/dL (12.9-16.9); Immature Granulocytes % 0.6 % (0-4); Lymphocytes # 1.1 K/mcL (0.6-4.6); Lymphocytes % 13.1 %; Mean Corpuscular HGB Conc 32.1 g/dL (31.6-35.5); Mean Corpuscular Hemoglobin 30.5 pg (28.0-33.3); Mean Platelet Volume 11.8 fL (9.4-12.4); Monocytes % 11.5 %; Neutrophils # 5.3 K/mcL (1.6-8.9); Nucleated Red Blood Cells 1.5 /100 WBC (0); Platelet Count 200 K/mcL (140-400); Red Blood Count 2.82 M/mcL (4.19-5.50); Red Cell Distribution Width 19.9 % (11.5-14.5); White Blood Count 8.2 K/mcL (4.3-11.1)
[2020-04-25 01:57] LABS: BUN/Creatinine Ratio 15 (6-26); Blood Urea Nitrogen 13 mg/dL (8-23); Calcium 8.1 mg/dL (8.6-10.3); Carbon Dioxide 23 mEq/L (23-29); Chloride 105 mEq/L (98-107); Glucose 91 mg/dL (70-105); Magnesium 1.6 mg/dL (1.6-2.6); Osmolality,Calculated 288 (280-300); Potassium 3.5 mEq/L (3.5-5.1); Sodium 139 mEq/L (136-145); eGFR For African Americans > 60 (> 60); eGFR For Non-African Americans > 60 (> 60)
[2020-04-25] MEDS: Thiamine (B-1) 100 MG TABLET PO SCH (10:01)
[2020-04-25] MEDS: Metoprolol 100 MG TABLET PO SCH ×2 (10:01→20:46)
[2020-04-25] MEDS: DilTIAZem CD (24hr) 120 MG CAP.ER.24H PO SCH (10:01)
[2020-04-25] MEDS: levoFLOXacin 750 MG TABLET PO SCH (10:01)
[2020-04-25] MEDS: Furosemide 40 MG TABLET PO SCH (10:01)
[2020-04-25] MEDS: Apixaban 5 MG TABLET PO SCH ×2 (10:01→20:46)
[2020-04-25] MEDS: Multivit/Ca/Min/Fe/FA 1 TAB TABLET PO SCH (10:01)
[2020-04-25] MEDS: Lactulose Oral Soln 20 GM/30 ML UDC PO SCH (10:02)
[2020-04-25] MEDS: Finasteride 5 MG TABLET PO SCH (10:02)
[2020-04-25] MEDS: *HR* OxyCODONE/APAP 5/325 TABLET PO PRN (17:40)
[2020-04-26 01:36] LABS: Basophils % 0.5 %; Eosinophils # 1.2 K/mcL (0.0-0.6); Eosinophils % 13.6 %; Hematocrit 28.5 % (37.5-50.1); Hemoglobin 8.8 g/dL (12.9-16.9); Immature Granulocytes % 0.6 % (0-4); Lymphocytes # 1.4 K/mcL (0.6-4.6); Lymphocytes % 15.7 %; Mean Corpuscular HGB Conc 30.9 g/dL (31.6-35.5); Mean Corpuscular Hemoglobin 29.3 pg (28.0-33.3); Mean Platelet Volume 11.5 fL (9.4-12.4); Monocytes % 11.4 %; Neutrophils # 5.1 K/mcL (1.6-8.9); Nucleated Red Blood Cells 0.6 /100 WBC (0); Platelet Count 241 K/mcL (140-400); Red Cell Distribution Width 19.3 % (11.5-14.5); Segmented Neutrophils % 58.2 %; White Blood Count 8.7 K/mcL (4.3-11.1)
[2020-04-26 01:56] LABS: Calcium 8.2 mg/dL (8.6-10.3); Carbon Dioxide 27 mEq/L (23-29); Chloride 101 mEq/L (98-107); Glucose 88 mg/dL (70-105); Magnesium 1.4 mg/dL (1.6-2.6); Potassium 3.2 mEq/L (3.5-5.1); Sodium 138 mEq/L (136-145); eGFR For African Americans > 60 (> 60); eGFR For Non-African Americans > 60 (> 60)
[2020-04-26 02:08] LABS: BUN/Creatinine Ratio 11 (6-26); Blood Urea Nitrogen 9 mg/dL (8-23); Osmolality,Calculated 284 (280-300)
[2020-04-26] MEDS: Apixaban 5 MG TABLET PO SCH (09:12)
[2020-04-26] MEDS: Multivit/Ca/Min/Fe/FA 1 TAB TABLET PO SCH (09:12)
[2020-04-26] MEDS: Lactulose Oral Soln 20 GM/30 ML UDC PO SCH (09:12)
[2020-04-26] MEDS: levoFLOXacin 750 MG TABLET PO SCH (09:12)
[2020-04-26] MEDS: Thiamine (B-1) 100 MG TABLET PO SCH (09:12)
[2020-04-26] MEDS: DilTIAZem CD (24hr) 120 MG CAP.ER.24H PO SCH (09:13)
[2020-04-26] MEDS: Metoprolol 100 MG TABLET PO SCH (09:13)
[2020-04-26] MEDS: Furosemide 40 MG TABLET PO SCH (09:13)
[2020-04-26] MEDS: Finasteride 5 MG TABLET PO SCH (09:13)
[2020-04-26 11:17] VITALS: BP 103/70
== END 2020-04-26 13:02 | DRG 299 ==
LOC: 2ANU → SUATTDRO 19:31
PROVIDERS: ADMIT Internal Medicine; ATTEND Pharmacist

== ENCOUNTER 2020-06-28 18:21 | Observation (INO) ==
[2020-06-28] MEDS ORDERED: Naloxone 0.4 MG/ML INJ IVP PRN (21:02)
[2020-06-28] MEDS ORDERED: *HR* LORazepam 2 MG/ML VIAL IVP PRN ×3 (21:10)
[2020-06-28 22:43] LABS: Calcium 8.5 mg/dL (8.6-10.3); Magnesium 1.8 mg/dL (1.6-2.6); Potassium 5.1 mEq/L (3.5-5.1)
[2020-06-28] MEDS: Apixaban 5 MG TABLET PO SCH (22:47)
[2020-06-28 23:29] LABS: Thyroid Stimulating Hormone 5.735 mcIU/mL (0.340-5.600)
[2020-06-29] MEDS ORDERED: 0.9 % Sodium Chloride 1,000 ML IVC SCH
[2020-06-29 01:18] LABS: Bilirubin,Urine Negative (Negative); Blood,Urine Negative (Negative); Clarity,Urine Clear (Clear); Color,Urine Light-Yellow (Yellow); Glucose,Urine (UA) Normal (Normal); Ketones,Urine Negative (Negative); Leukocyte Esterase,Urine Negative (Negative); Nitrite,Urine Negative (Negative); PH,Urine 5.5 pH Units (5.0-8.0); Protein,Urine Negative (Neg-Trace); Specific Gravity,Urine 1.011 (1.010-1.025); Urobilinogen,Urine Normal (Normal)
[2020-06-29 01:28] LABS: Creatinine,Urine 74 mg/dL
[2020-06-29 07:03] LABS: BUN/Creatinine Ratio 19 (6-26); Blood Urea Nitrogen 22 mg/dL (8-23); Calcium 8.9 mg/dL (8.6-10.3); Carbon Dioxide 23 mEq/L (23-29); Chloride 108 mEq/L (98-107); Glucose 101 mg/dL (70-105); Osmolality,Calculated 289 (280-300); Potassium 5.1 mEq/L (3.5-5.1); Sodium 138 mEq/L (136-145); eGFR For African Americans > 60 (> 60); eGFR For Non-African Americans > 60 (> 60)
[2020-06-29] MEDS ORDERED: Apixaban 5 MG TABLET PO SCH (09:00)
[2020-06-29] MEDS: Lactulose Oral Soln 20 GM/30 ML UDC PO SCH (09:28)
[2020-06-29] MEDS: Apixaban 5 MG TABLET PO SCH ×2 (09:28→20:27)
[2020-06-29] MEDS: Metoprolol XL (24 HR) Succ 50 MG TAB.ER.24H PO SCH (11:23)
[2020-06-29] MEDS: DilTIAZem CD (24hr) 120 MG CAP.ER.24H PO SCH (11:23)
[2020-06-29] MEDS: Furosemide 20 MG TABLET PO SCH (16:01)
[2020-06-29] MEDS: Gabapentin 300 MG CAPSULE PO SCH ×2 (16:01→20:27)
[2020-06-29] MEDS ORDERED: Thiamine (B-1) 100 MG, Folic Acid 1 MG, MVI, adult with vitamin K 10 ML in 0.9 % Sodi... IVPB SCH (18:00)
[2020-06-29] MEDS ORDERED: Acetaminophen 325 MG TABLET PO PRN (18:47)
[2020-06-30 05:46] LABS: BUN/Creatinine Ratio 20 (6-26); Blood Urea Nitrogen 19 mg/dL (8-23); Calcium 8.6 mg/dL (8.6-10.3); Carbon Dioxide 27 mEq/L (23-29); Chloride 108 mEq/L (98-107); Glucose 96 mg/dL (70-105); Osmolality,Calculated 294 (280-300); Potassium 4.2 mEq/L (3.5-5.1); Sodium 141 mEq/L (136-145); eGFR For African Americans > 60 (> 60); eGFR For Non-African Americans > 60 (> 60)
[2020-06-30] MEDS: Metoprolol XL (24 HR) Succ 50 MG TAB.ER.24H PO SCH (09:16)
[2020-06-30] MEDS: DilTIAZem CD (24hr) 120 MG CAP.ER.24H PO SCH (09:16)
[2020-06-30] MEDS: Gabapentin 300 MG CAPSULE PO SCH (09:16)
[2020-06-30] MEDS: Furosemide 20 MG TABLET PO SCH (09:16)
[2020-06-30] MEDS: Lactulose Oral Soln 20 GM/30 ML UDC PO SCH (09:16)
[2020-06-30] MEDS: Apixaban 5 MG TABLET PO SCH (09:16)
[2020-06-30 19:22] VITALS: BP 175/76
== END 2020-06-30 15:25 | disposition home health service (06) ==
LOC: 2ANU
PROVIDERS: ADMIT Internal Medicine; ATTEND Internal Medicine

== ENCOUNTER 2020-12-09 14:20 | Observation (INO) ==
[2020-12-09 15:20] LABS: Hemoglobin 7.6 g/dL (12.9-16.9); Immature Granulocytes % 0.2 % (0-4)
[2020-12-09 15:22] LABS: Basophils # 0.1 K/mcL (0.0-0.2); Basophils % 0.6 %; Eosinophils # 0.4 K/mcL (0.0-0.6); Eosinophils % 4.4 %; Hematocrit 26.7 % (37.5-50.1); Lymphocytes % 24.4 %; Mean Corpuscular HGB Conc 28.5 g/dL (31.6-35.5); Mean Corpuscular Hemoglobin 23.9 pg (28.0-33.3); Mean Platelet Volume 10.3 fL (9.4-12.4); Monocytes # 0.6 K/mcL (0.0-1.3); Monocytes % 7.2 %; Neutrophils # 5.3 K/mcL (1.6-8.9); Nucleated Red Blood Cells 0.6 /100 WBC (0); Platelet Count 454 K/mcL (140-400); Red Blood Count 3.18 M/mcL (4.19-5.50); Red Cell Distribution Width 18.4 % (11.5-14.5); Segmented Neutrophils % 63.2 %; White Blood Count 8.3 K/mcL (4.3-11.1)
[2020-12-09 15:45] LABS: Alanine Aminotransferase 5 Units/L (7-52); Albumin 2.9 g/dL (3.5-5.7); Alkaline Phosphatase 86 Units/L (34-104); Aspartate Amino Transferase 14 Units/L (13-39); BUN/Creatinine Ratio 9 (6-26); Bilirubin,Total 0.5 mg/dL (0.3-1.0); Blood Urea Nitrogen 12 mg/dL (8-23); Calcium 7.5 mg/dL (8.6-10.3); Carbon Dioxide 25 mEq/L (23-29); Chloride 99 mEq/L (98-107); Ethanol 108 mg/dL (Less than 10); Glucose 101 mg/dL (70-105); Lipase 26 Units/L (11-82); Osmolality,Calculated 284 (280-300); Potassium 2.9 mEq/L (3.5-5.1); Sodium 137 mEq/L (136-145); Total Protein 5.9 g/dL (6.4-8.9); Troponin I < 0.03 ng/mL (< 0.04); eGFR For African Americans > 60 (> 60); eGFR For Non-African Americans 54 (> 60)
[2020-12-09] MEDS ORDERED: 0.9 % Sodium Chloride 1,000 ML IV ONE (15:57)
[2020-12-09 16:01] LABS: Hypochromasia Present (Not Present)
[2020-12-09] MEDS ORDERED: Ondansetron 4 MG/2 ML VIAL IVP PRN (17:21)
[2020-12-09] MEDS ORDERED: Naloxone 0.4 MG/ML INJ IVP PRN (17:21)
[2020-12-09] MEDS ORDERED: *HR* LORazepam 2 MG/ML VIAL IVP PRN ×3 (17:26→17:28)
[2020-12-09] MEDS ORDERED: 0.9 % Sodium Chloride w KCl 40 MEQ/1,000 ML MLS IVC SCH (17:30)
[2020-12-09] MEDS ORDERED: Ipratropium/Albuterol Neb 3 ML IH PRN (18:00)
[2020-12-09 18:09] LABS: Hematocrit 27.5 % (37.5-50.1); Hemoglobin 7.8 g/dL (12.9-16.9)
[2020-12-10 05:58] LABS: INR 1.8; Prothrombin Time 20.2 Seconds (9.4-12.1)
[2020-12-10 05:59] LABS: Activated Partial Thrombo Time 31.4 Seconds (26.0-36.0)
[2020-12-10 06:06] LABS: % Iron Saturation 5 % (20-55); Iron 20 mcg/dL (65-175); Transferrin 269 mg/dL (203-362)
[2020-12-10 06:12] LABS: BUN/Creatinine Ratio 13 (6-26); Blood Urea Nitrogen 14 mg/dL (8-23); Calcium 7.3 mg/dL (8.6-10.3); Carbon Dioxide 27 mEq/L (23-29); Chloride 105 mEq/L (98-107); Glucose 100 mg/dL (70-105); Magnesium 1.3 mg/dL (1.6-2.6); Osmolality,Calculated 287 (280-300); Potassium 3.9 mEq/L (3.5-5.1); Sodium 138 mEq/L (136-145); eGFR For African Americans > 60 (> 60); eGFR For Non-African Americans > 60 (> 60)
[2020-12-10] MEDS ORDERED: Nitroglycerin 0.4 MG TAB.SUBL SL PRN (07:28)
[2020-12-10] MEDS: Gabapentin 300 MG CAPSULE PO SCH ×2 (08:23→14:55)
[2020-12-10] MEDS: *HR* HYDROcodone/Acet 5/325 mg TABLET PO PRN ×2 (08:25→15:07)
[2020-12-10] MEDS ORDERED: Folic Acid 1 MG TABLET PO SCH (09:00)
[2020-12-10] MEDS ORDERED: Lactulose Oral Soln 20 GM/30 ML UDC PO SCH (09:00)
[2020-12-10] MEDS ORDERED: Multivit/Ca/Min/Fe/FA 1 TAB TABLET PO SCH (09:00)
[2020-12-10] MEDS ORDERED: Apixaban 5 MG TABLET PO SCH (09:00)
[2020-12-10] MEDS ORDERED: Metoprolol XL (24 HR) Succ 50 MG TAB.ER.24H PO SCH (09:00)
[2020-12-10] MEDS ORDERED: Furosemide 20 MG TABLET PO SCH (09:00)
[2020-12-10] MEDS ORDERED: Vitamin B Complex/Vit C/Vit E 1 EACH TABLET PO SCH (09:00)
[2020-12-10] MEDS ORDERED: Aspirin Enteric Coated 81 MG Tablet PO SCH (09:00)
[2020-12-10] MEDS ORDERED: Pantoprazole 40 MG VIAL IVP SCH (09:00)
[2020-12-10] MEDS ORDERED: Thiamine (B-1) 100 MG TABLET PO SCH (09:00)
[2020-12-10] MEDS ORDERED: Magnesium Oxide 400 MG TABLET PO ONE (13:32)
[2020-12-10 13:46] VITALS: BP 117/62
== END 2020-12-10 18:16 | disposition home health service (06) ==
LOC: 3ANU 14:20 → EMEROOARM 14:20 → SUATTDRO 20:09 → 3ANU 21:00
PROVIDERS: ADMIT Family Medicine; ATTEND Internal Medicine

== ENCOUNTER 2021-04-28 22:36 | Inpatient (IN) ==
[2021-04-29] MEDS ORDERED: Naloxone 0.4 MG/ML INJ IVP PRN (02:06)
[2021-04-29] MEDS ORDERED: Ondansetron 4 MG/2 ML VIAL IVP PRN (02:06)
[2021-04-29] MEDS ORDERED: *HR* Promethazine 25 MG/ML VIAL IM PRN (02:06)
[2021-04-29] MEDS ORDERED: Perflutren Lipid Microsphere 1.3 ML in 0.9 % Sodium Chloride 8.7 ML IVP PRN (09:02)
[2021-04-29] MEDS: Aspirin Enteric Coated 81 MG Tablet PO SCH (09:27)
[2021-04-29] MEDS: Apixaban 5 MG TABLET PO SCH ×2 (09:27→22:22)
[2021-04-29] MEDS: DilTIAZem CD (24hr) 120 MG CAP.ER.24H PO SCH (09:27)
[2021-04-29] MEDS: Furosemide 40 MG/4 ML VIAL IVP SCH ×2 (09:28→22:21)
[2021-04-29] MEDS: Folic Acid 1 MG TABLET PO SCH (09:28)
[2021-04-29 09:41] LABS: Basophils % 0.1 %; Eosinophils % 0.4 %; Hematocrit 33.2 % (37.5-50.1); Hemoglobin 10.7 g/dL (12.9-16.9); Immature Granulocytes % 0.4 % (0-4); Lymphocytes # 1.1 K/mcL (0.6-4.6); Lymphocytes % 13.5 %; Mean Corpuscular HGB Conc 32.2 g/dL (31.6-35.5); Mean Corpuscular Hemoglobin 30.2 pg (28.0-33.3); Mean Corpuscular Volume 93.8 fL (83.0-100.0); Mean Platelet Volume 10.5 fL (9.4-12.4); Monocytes # 0.7 K/mcL (0.0-1.3); Monocytes % 8.8 %; Neutrophils # 6.5 K/mcL (1.6-8.9); Nucleated Red Blood Cells 0.5 /100 WBC (0); Platelet Count 283 K/mcL (140-400); Red Blood Count 3.54 M/mcL (4.19-5.50); Red Cell Distribution Width 17.3 % (11.5-14.5); Segmented Neutrophils % 76.8 %; White Blood Count 8.4 K/mcL (4.3-11.1)
[2021-04-29 09:49] LABS: INR 2.5; Prothrombin Time 27.9 Seconds (9.4-12.1)
[2021-04-29 10:44] LABS: Alanine Aminotransferase 8 Units/L (7-52); Albumin 3.5 g/dL (3.5-5.7); Albumin/Globulin Ratio 1.4 (1.1-2.2); Alkaline Phosphatase 47 Units/L (34-104); Aspartate Amino Transferase 18 Units/L (13-39); BUN/Creatinine Ratio 29 (6-26); Bilirubin,Total 0.8 mg/dL (0.3-1.0); Blood Urea Nitrogen 29 mg/dL (8-23); Calcium 8.8 mg/dL (8.6-10.3); Carbon Dioxide 30 mEq/L (23-29); Chloride 100 mEq/L (98-107); Globulin 2.5 g/dL (2.4-3.5); Glucose 108 mg/dL (70-105); Magnesium 1.7 mg/dL (1.6-2.6); Osmolality,Calculated 292 (280-300); Potassium 3.9 mEq/L (3.5-5.1); Sodium 138 mEq/L (136-145); eGFR For African Americans > 60 (> 60); eGFR For Non-African Americans > 60 (> 60)
[2021-04-29] MEDS: Acetaminophen 325 MG TABLET PO PRN ×2 (18:03→23:01)
[2021-04-30 06:44] LABS: Basophils % 0.1 %; Eosinophils # 0.3 K/mcL (0.0-0.6); Eosinophils % 2.5 %; Hemoglobin 11.6 g/dL (12.9-16.9); Immature Granulocytes % 0.4 % (0-4); Lymphocytes # 1.7 K/mcL (0.6-4.6); Mean Corpuscular HGB Conc 32.2 g/dL (31.6-35.5); Mean Corpuscular Hemoglobin 30.4 pg (28.0-33.3); Mean Corpuscular Volume 94.5 fL (83.0-100.0); Mean Platelet Volume 10.1 fL (9.4-12.4); Monocytes % 10.1 %; Nucleated Red Blood Cells 0.3 /100 WBC (0); Platelet Count 287 K/mcL (140-400); Red Blood Count 3.81 M/mcL (4.19-5.50); Red Cell Distribution Width 17.3 % (11.5-14.5); Segmented Neutrophils % 69.9 %
[2021-04-30 06:52] LABS: VBG HCO3 34 mEq/L (21-27); VBG PCO2 43 mmHg (41-51); VBG PH 7.51 pH Units (7.32-7.42); VBG PO2 202 mmHg (25-50)
[2021-04-30] MEDS: Gabapentin 300 MG CAPSULE PO SCH ×3 (08:53→20:33)
[2021-04-30] MEDS: Folic Acid 1 MG TABLET PO SCH (08:53)
[2021-04-30] MEDS: Aspirin Enteric Coated 81 MG Tablet PO SCH (08:54)
[2021-04-30] MEDS: DilTIAZem CD (24hr) 120 MG CAP.ER.24H PO SCH (08:54)
[2021-04-30] MEDS: Furosemide 40 MG/4 ML VIAL IVP SCH (08:55)
[2021-04-30] MEDS: Apixaban 5 MG TABLET PO SCH ×2 (08:55→20:33)
[2021-04-30 11:10] LABS: Albumin 3.4 g/dL (3.5-5.7); Albumin/Globulin Ratio 1.2 (1.1-2.2); Alkaline Phosphatase 46 Units/L (34-104); Aspartate Amino Transferase 28 Units/L (13-39); Bilirubin,Direct 0.3 mg/dL (0.0-0.2); Bilirubin,Indirect 0.5 mg/dL (0.0-1.0); Bilirubin,Total 0.8 mg/dL (0.3-1.0); Calcium 8.6 mg/dL (8.6-10.3); Chloride 97 mEq/L (98-107); Globulin 2.9 g/dL (2.4-3.5); Glucose 88 mg/dL (70-105); Potassium 3.3 mEq/L (3.5-5.1); Sodium 139 mEq/L (136-145); Total Protein 6.3 g/dL (6.4-8.9)
[2021-04-30 12:57] LABS: Alanine Aminotransferase 12 Units/L (7-52); BUN/Creatinine Ratio 25 (6-26); Blood Urea Nitrogen 26 mg/dL (8-23); Carbon Dioxide 29 mEq/L (23-29); Magnesium 1.4 mg/dL (1.6-2.6); Osmolality,Calculated 292 (280-300); eGFR For African Americans > 60 (> 60); eGFR For Non-African Americans > 60 (> 60)
[2021-05-01 07:15] LABS: Albumin 3.5 g/dL (3.5-5.7); Albumin/Globulin Ratio 1.2 (1.1-2.2); Bilirubin,Direct 0.3 mg/dL (0.0-0.2); Bilirubin,Indirect 0.5 mg/dL (0.0-1.0); Bilirubin,Total 0.8 mg/dL (0.3-1.0); Calcium 8.6 mg/dL (8.6-10.3); Globulin 2.9 g/dL (2.4-3.5); Magnesium 2.6 mg/dL (1.6-2.6); Potassium 3.5 mEq/L (3.5-5.1); Total Protein 6.4 g/dL (6.4-8.9)
[2021-05-01] MEDS: Aspirin Enteric Coated 81 MG Tablet PO SCH (10:04)
[2021-05-01] MEDS: DilTIAZem CD (24hr) 120 MG CAP.ER.24H PO SCH (10:04)
[2021-05-01] MEDS: Folic Acid 1 MG TABLET PO SCH (10:05)
[2021-05-01] MEDS: Apixaban 5 MG TABLET PO SCH ×2 (10:05→20:25)
[2021-05-02 02:59] LABS: Albumin 3.2 g/dL (3.5-5.7); Bilirubin,Direct 0.4 mg/dL (0.0-0.2); Bilirubin,Indirect 0.3 mg/dL (0.0-1.0); Bilirubin,Total 0.7 mg/dL (0.3-1.0); Calcium 8.2 mg/dL (8.6-10.3); Globulin 3.1 g/dL (2.4-3.5); Magnesium 2.4 mg/dL (1.6-2.6); Potassium 3.2 mEq/L (3.5-5.1); Total Protein 6.3 g/dL (6.4-8.9)
[2021-05-02] MEDS ORDERED: 0.9 % Sodium Chloride 1,000 ML IVC SCH (08:00)
[2021-05-02] MEDS: DilTIAZem CD (24hr) 120 MG CAP.ER.24H PO SCH (08:31)
[2021-05-02] MEDS: Aspirin Enteric Coated 81 MG Tablet PO SCH (08:33)
[2021-05-02] MEDS: Folic Acid 1 MG TABLET PO SCH (08:34)
[2021-05-02] MEDS: Apixaban 5 MG TABLET PO SCH ×2 (08:34→21:06)
[2021-05-02] MEDS: Acetaminophen 325 MG TABLET PO PRN (16:35)
[2021-05-03] MEDS: Acetaminophen 325 MG TABLET PO PRN ×2 (00:02→20:25)
[2021-05-03 00:05] LABS: Bacteria,Urine Moderate per hpf (None-Few); Bilirubin,Urine Negative (Negative); Blood,Urine Large (Negative); Clarity,Urine Turbid (Clear); Color,Urine Yellow (Yellow); Glucose,Urine (UA) Normal (Normal); Hyaline Casts,Urine Many per lpf (None Seen); Ketones,Urine Negative (Negative); Leukocyte Esterase,Urine Large (Negative); Mucus,Urine Few per lpf (None-Few); Nitrite,Urine Negative (Negative); PH,Urine 5.5 pH Units (5.0-8.0); Protein,Urine 50 mg/dL (Neg-Trace); RBC,Urine 50-100 per hpf (0-3); Specific Gravity,Urine 1.025 (1.010-1.025); Transitional Epi Cells,Urine Few per hpf (None-Few); WBC,Urine TNTC per hpf (0-3)
[2021-05-03 01:38] LABS: Calcium 7.7 mg/dL (8.6-10.3); Potassium 3.4 mEq/L (3.5-5.1)
[2021-05-03] MEDS: Aspirin Enteric Coated 81 MG Tablet PO SCH (09:08)
[2021-05-03] MEDS: DilTIAZem CD (24hr) 120 MG CAP.ER.24H PO SCH (09:09)
[2021-05-03] MEDS: Folic Acid 1 MG TABLET PO SCH (09:09)
[2021-05-03] MEDS: Apixaban 5 MG TABLET PO SCH ×2 (09:09→20:24)
[2021-05-03] MEDS: 0.9 % Sodium Chloride 1,000 ML IVC SCH ×2 (09:10→20:27)
[2021-05-04] MEDS: 0.9 % Sodium Chloride 1,000 ML IVC SCH ×2 (03:15→22:55)
[2021-05-04 05:38] LABS: Basophils % 0.1 %; Eosinophils # 0.7 K/mcL (0.0-0.6); Hematocrit 32.8 % (37.5-50.1); Hemoglobin 10.5 g/dL (12.9-16.9); Immature Granulocytes % 0.4 % (0-4); Lymphocytes # 1.3 K/mcL (0.6-4.6); Lymphocytes % 14.7 %; Mean Corpuscular Hemoglobin 30.3 pg (28.0-33.3); Mean Corpuscular Volume 94.8 fL (83.0-100.0); Mean Platelet Volume 11.4 fL (9.4-12.4); Monocytes # 0.8 K/mcL (0.0-1.3); Monocytes % 9.3 %; Platelet Count 297 K/mcL (140-400); Red Blood Count 3.46 M/mcL (4.19-5.50); Red Cell Distribution Width 17.3 % (11.5-14.5); Segmented Neutrophils % 67.5 %
[2021-05-04 05:57] LABS: BUN/Creatinine Ratio 29 (6-26); Blood Urea Nitrogen 39 mg/dL (8-23); Calcium 8.1 mg/dL (8.6-10.3); Carbon Dioxide 23 mEq/L (23-29); Chloride 105 mEq/L (98-107); Glucose 100 mg/dL (70-105); Osmolality,Calculated 297 (280-300); Potassium 3.4 mEq/L (3.5-5.1); Sodium 139 mEq/L (136-145); eGFR For African Americans > 60 (> 60); eGFR For Non-African Americans 52 (> 60)
[2021-05-04 05:58] LABS: Uric Acid 15.9 mg/dL (2.3-7.6)
[2021-05-04 06:18] LABS: Hepatitis B Surface Antigen Nonreactive (Nonreactive)
[2021-05-04 06:47] LABS: Hepatitis B Core IgM Nonreactive (Nonreactive); Hepatitis C Virus Antibody Nonreactive (Nonreactive)
[2021-05-04 06:49] LABS: Hepatitis A Antibody IgM Nonreactive (Nonreactive)
[2021-05-04] MEDS: Aspirin Enteric Coated 81 MG Tablet PO SCH (08:00)
[2021-05-04] MEDS: DilTIAZem CD (24hr) 120 MG CAP.ER.24H PO SCH (08:00)
[2021-05-04] MEDS: Apixaban 5 MG TABLET PO SCH ×2 (08:01→20:44)
[2021-05-04] MEDS: Folic Acid 1 MG TABLET PO SCH (08:01)
[2021-05-04] MEDS: Melatonin 3 MG TABLET PO SCH (20:44)
[2021-05-05 05:03] LABS: Basophils % 0.2 %; Eosinophils # 0.7 K/mcL (0.0-0.6); Eosinophils % 7.8 %; Hematocrit 32.9 % (37.5-50.1); Hemoglobin 10.6 g/dL (12.9-16.9); Immature Granulocytes % 0.6 % (0-4); Lymphocytes # 1.4 K/mcL (0.6-4.6); Lymphocytes % 15.2 %; Mean Corpuscular HGB Conc 32.2 g/dL (31.6-35.5); Mean Corpuscular Hemoglobin 30.5 pg (28.0-33.3); Mean Corpuscular Volume 94.5 fL (83.0-100.0); Mean Platelet Volume 11.4 fL (9.4-12.4); Neutrophils # 5.9 K/mcL (1.6-8.9); Platelet Count 315 K/mcL (140-400); Red Blood Count 3.48 M/mcL (4.19-5.50); Red Cell Distribution Width 17.4 % (11.5-14.5); Segmented Neutrophils % 65.2 %
[2021-05-05 05:16] LABS: BUN/Creatinine Ratio 20 (6-26); Blood Urea Nitrogen 18 mg/dL (8-23); Calcium 8.4 mg/dL (8.6-10.3); Carbon Dioxide 24 mEq/L (23-29); Chloride 110 mEq/L (98-107); Glucose 96 mg/dL (70-105); Magnesium 1.8 mg/dL (1.6-2.6); Osmolality,Calculated 296 (280-300); Potassium 3.6 mEq/L (3.5-5.1); Sodium 142 mEq/L (136-145); eGFR For African Americans > 60 (> 60); eGFR For Non-African Americans > 60 (> 60)
[2021-05-05] MEDS: Folic Acid 1 MG TABLET PO SCH (09:03)
[2021-05-05] MEDS: Aspirin Enteric Coated 81 MG Tablet PO SCH (09:04)
[2021-05-05] MEDS: Metoprolol XL (24 HR) Succ 50 MG TAB.ER.24H PO SCH (09:05)
[2021-05-05] MEDS: Magnesium Oxide 400 MG TABLET PO SCH (09:05)
[2021-05-05] MEDS: DilTIAZem CD (24hr) 120 MG CAP.ER.24H PO SCH (09:05)
[2021-05-05] MEDS: Apixaban 5 MG TABLET PO SCH ×2 (09:05→20:30)
[2021-05-05] MEDS: Melatonin 3 MG TABLET PO SCH (20:29)
[2021-05-06 06:32] LABS: Basophils % 0.5 %; Eosinophils % 12.5 %; Hematocrit 34.3 % (37.5-50.1); Hemoglobin 10.6 g/dL (12.9-16.9); Immature Granulocytes % 0.6 % (0-4); Lymphocytes # 1.7 K/mcL (0.6-4.6); Mean Corpuscular HGB Conc 30.9 g/dL (31.6-35.5); Mean Corpuscular Hemoglobin 29.9 pg (28.0-33.3); Mean Corpuscular Volume 96.9 fL (83.0-100.0); Mean Platelet Volume 11.6 fL (9.4-12.4); Monocytes # 0.9 K/mcL (0.0-1.3); Monocytes % 11.2 %; Neutrophils # 4.3 K/mcL (1.6-8.9); Platelet Count 322 K/mcL (140-400); Red Blood Count 3.54 M/mcL (4.19-5.50); Red Cell Distribution Width 17.2 % (11.5-14.5); Segmented Neutrophils % 54.2 %; White Blood Count 7.9 K/mcL (4.3-11.1)
[2021-05-06 06:52] LABS: BUN/Creatinine Ratio 11 (6-26); Blood Urea Nitrogen 9 mg/dL (8-23); Calcium 8.9 mg/dL (8.6-10.3); Carbon Dioxide 22 mEq/L (23-29); Chloride 110 mEq/L (98-107); Glucose 86 mg/dL (70-105); Osmolality,Calculated 294 (280-300); Potassium 3.8 mEq/L (3.5-5.1); Sodium 143 mEq/L (136-145); eGFR For African Americans > 60 (> 60); eGFR For Non-African Americans > 60 (> 60)
[2021-05-06] MEDS: Metoprolol XL (24 HR) Succ 50 MG TAB.ER.24H PO SCH (09:52)
[2021-05-06] MEDS: Aspirin Enteric Coated 81 MG Tablet PO SCH (09:52)
[2021-05-06] MEDS: Folic Acid 1 MG TABLET PO SCH (09:52)
[2021-05-06] MEDS: DilTIAZem CD (24hr) 120 MG CAP.ER.24H PO SCH (09:52)
[2021-05-06] MEDS: Apixaban 5 MG TABLET PO SCH (09:53)
[2021-05-06] MEDS: Magnesium Oxide 400 MG TABLET PO SCH (09:53)
[2021-05-06 10:36] VITALS: BP 140/84; PULSE 95; TEMP 98.7; O2SAT 96
[2021-05-06] MEDS ORDERED: Nitrofurantoin (BID) 100 MG CAPSULE PO SCH (12:00)
[2021-05-06 14:49] LABS: ANA IgG by ELISA NONE DETECTED (None Detected)
[2021-05-06 18:55] LABS: ANCA IFA Titer <1:20 (<1:20)
[2021-05-07 10:42] LABS: ANCA IFA Pattern NONE DETECTED (None Detected); Serine Protease-3 Antibody 15 AU/mL (0-19)
[2021-05-07 15:14] LABS: Immunoglobulin A 277 mg/dL (68-408); Immunoglobulin G 1039 mg/dL (768-1632); Immunoglobulin M 124 mg/dL (35-263)
[2021-05-07 18:42] LABS: Alpha 2 Globulin (PEP) 0.82 g/dL (0.48-1.05); Beta Globulin (PEP) 0.73 g/dL (0.48-1.10)
[2021-05-08 11:12] LABS: IFE Reflexed IFE Done
== END 2021-05-06 14:51 | disposition home health service (06) | DRG 308 ==
LOC: 3ANU → SUATTDRO 04-29 01:29
PROVIDERS: ADMIT Family Medicine; ATTEND Internal Medicine